=== PATIENT | female | born 1960 | race Caucasian/White ===

== ENCOUNTER 2017-03-27 11:07 | Emergency (ER) | payer MEDICARE ==
[2017-03-27 11:17] VITALS: BP 123/65; PULSE 69; RESP 16; TEMP 97.6
--- NOTE | 2017-03-27 13:03 | XR ---
Right forearm HISTORY: Pain 2 views of the right forearm No comparisons Bone mineralization, joint spaces and alignment are maintained IMPRESSION: Normal right forearm
[2017-03-27] MEDS ORDERED: NAPROXEN 250 MG TAB PO STA (13:49)
--- NOTE | 2017-03-27 13:49 | ED ---
Upper Extremity HPI - General Chief Complaint: Extremity Injury, Upper Stated Complaint: RT HAND AND WRIST PAIN Time Seen by Provider: 03/27/17 11:13 Source: patient Mode of arrival: ambulatory Limitations: no limitations - History of Present Illness MD Complaint: Injury to:: right, forearm, wrist Onset/Timin -: month(s) Other Extremity Injury: Wrist: Right, Forearm: Right Handedness: right Place: home Improves With: immobilization Worsens With: movement of extremity Associated Symptoms: denies other symptoms - Related Data Home Medications Medication Instructions Recorded Confirmed Aspirin 325 mg PO DAILY 02/20/15 03/27/17 Gabapentin [Neurontin] 400 mg PO BID 02/20/15 03/27/17 LORazepam [Ativan] 1 mg PO TID PRN 02/20/15 03/27/17 Omeprazole [PriLOSEC] 20 mg PO DAILY 02/20/15 03/27/17 carBAMazepine [TEGretol] 400 mg PO Q12H 02/20/15 03/27/17 hydrOXYzine HCL [Hydroxyzine HCl] 10 mg PO DAILY 02/20/15 03/27/17 Previous Rx's Medication Instructions Recorded Naproxen Sodium [Naproxen Sodium 500 mg PO DAILY PRN #20 tab 03/27/17 ER] Allergies Allergy/AdvReac Type Severity Reaction Status Date / Time morphine AdvReac Itching Verified 03/27/17 11:32 Review of Systems ROS Statement: Those systems with pertinent positive or pertinent negative responses have been documented in the HPI. ROS Other: All systems not noted in ROS Statement are negative. Constitutional: Denies: fever, weakness Musculoskeletal: Reports: as per HPI, arthralgia, myalgia Neurological: Denies: weakness, numbness, paresthesias Past Medical History Past Medical History: Chest Pain / Angina, GERD/Reflux, Musculoskeletal Disorder Additional Past Medical History / Comment(s): EPILEPSY-LAST SEIZURE APPROX 5 YRS ,CHRONIC PAIN TO ABD RADIATING RT HIP AND LEG. History of Any Multi-Drug Resistant Organisms: None Reported Past Surgical History: Appendectomy, Cholecystectomy, Heart Catheterization, Hernia Repair, Hysterectomy, Tubal Ligation Additional Past Surgical History / Comment(s): RT INGUINAL HERNIA SURGERY W/ MESH, LT INGUINAL HERNIA REPAIR, BLADDER SLING,LT BREAST BX,APRIL KNEE ARTHROSCOPY ,RT ANKLE ARTHROSCOPY, NERVE REMOVED RT FOOT Past Anesthesia/Blood Transfusion Reactions: Previous Problems w/ Anesthesia, Motion Sickness Additional Past Anesthesia/Blood Transfusion Reaction / Comment(s): LOW B/P AND PAIN CONTROL AFTER SURGERY Past Psychological History: Anxiety Smoking Status: Never smoker Past Alcohol Use History: None Reported Past Drug Use History: None Reported - Past Family History Father Family Medical History: Myocardial Infarction ([place]) Additional Family Medical History / Comment(s): AT AGE 75 WITH [place], ABDOMINAL ANEURYSM,EMPHYSEMA, HEART PROBLEMS Mother Additional Family Medical History / Comment(s): WITH GI BLEED AT AGE 73,ALHEIMER'S DISEASE Brother(s) Family Medical History: Renal Disease Additional Family Medical History / Comment(s): MULTIPLE CONGENITAL SPINA BIFIDA General Exam Limitations: no limitations General appearance: alert, in no apparent distress Neck exam: Present: full ROM Extremities exam: Present: normal inspection, full ROM, tenderness, normal capillary refill Neurological exam: Present: alert. Absent: motor sensory deficit Skin exam: Present: warm, dry, intact, normal color. Absent: rash Course Vital Signs 03/27/17 11:14 Temperature 97.6 F Pulse Rate 69 Respiratory 16 Rate Blood Pressure 123/65 O2 Sat by Pulse 95 Oximetry Disposition Clinical Impression: Right wrist sprain Disposition: HOME SELF-CARE Condition: Good Instructions: Wrist Injury (ED) Prescriptions: Naproxen Sodium [Naproxen Sodium ER] 500 mg PO DAILY PRN #20 tab PRN Reason: Pain Referrals: Yasir Hood MD [Primary Care Provider] - 1-2 days
== END 2017-03-27 14:23 | disposition home or self-care (01) ==
LOC: EC 11:07
DX: S63.91XA Sprain of unspecified part of right wrist and hand, initial encounter (principal); K21.9 Gastro-esophageal reflux disease without esophagitis; G40.909 Epilepsy, unspecified, not intractable, without status epilepticus; F41.9 Anxiety disorder, unspecified; Z79.82 Long term (current) use of aspirin; Z79.899 Other long term (current) drug therapy; Z88.5 Allergy status to narcotic agent; X50.1XXA Overexertion from prolonged static or awkward postures, initial encounter
CPT/HCPCS: 99283

== ENCOUNTER 2017-09-28 02:36 | Emergency (ER) | payer MEDICARE ==
[2017-09-28 02:44] VITALS: RESP 20
[2017-09-28] MEDS ORDERED: SODIUM CHLORIDE 0.9% 1,000 ML IV STA (02:52)
[2017-09-28 03:12] LABS: Basophils % (A) 0 %; Eosinophils # (A) 0.2 k/uL (0-0.7); Eosinophils % (A) 3 %; HCT 40.4 % (34.0-46.0); HGB 14.3 gm/dL (11.4-16.0); Lymphocytes # (A) 1.8 k/uL (1.0-4.8); Lymphocytes % (A) 25 %; MCH 32.9 pg (25.0-35.0); MCHC 35.4 g/dL (31.0-37.0); Mean Platelet Volume 6.8; Monocytes # (A) 0.6 k/uL (0-1.0); Monocytes % (A) 8 %; Neutrophils # (A) 4.6 k/uL (1.3-7.7); Neutrophils % (A) 63 %; Platelet Count 352 k/uL (150-450); RBC 4.34 m/uL (3.80-5.40); RDW 12.1 % (11.5-15.5); WBC 7.3 k/uL (3.8-10.6)
[2017-09-28 03:21] LABS: ALT 30 U/L (9-52); AST 19 U/L (14-36); Alkaline Phosphatase 93 U/L (38-126); Anion Gap 12 mmol/L; Blood Urea Nitrogen 11 mg/dL (7-17); Calcium 10.4 mg/dL (8.4-10.2); Carbamazepine (Tegretol) 5.7 ug/mL; Carbon Dioxide 24 mmol/L (22-30); Chloride 107 mmol/L (98-107); Glucose 104 mg/dL (74-99); Phosphorus 4.4 mg/dL (2.5-4.5); Potassium 3.9 mmol/L (3.5-5.1); Sodium 143 mmol/L (137-145); Total Bilirubin 0.4 mg/dL (0.2-1.3); Total Protein 6.7 g/dL (6.3-8.2)
[2017-09-28 03:22] LABS: Creatine Kinase 42 U/L (30-135)
[2017-09-28 03:35] LABS: Creatine Kinase MB 0.2 ng/mL (0.0-2.4); Troponin I <0.012 ng/mL (0.000-0.034)
--- NOTE | 2017-09-28 03:37 | CT ---
EXAM: CT Head Without Intravenous Contrast CLINICAL HISTORY: ITS.REASON CT Reason: weakness TECHNIQUE: Axial computed tomography images of the head/brain without intravenous contrast. CTDI is 57.4 mGy and DLP is 1029.9 mGy-cm. This CT exam was performed using one or more of the following dose reduction techniques: automated exposure control, adjustment of the mA and/or kV according to patient size, and/or use of iterative reconstruction technique. COMPARISON: None. FINDINGS: Brain: Very mild small patchy foci of low attenuation in the supratentorial white matter. No evidence of acute intracranial hemorrhage. No mass effect or herniation. Ventricles: Unremarkable. No ventriculomegaly. Bones/joints: No acute fracture. Soft tissues: Unremarkable. Vasculature: Calcification distal internal carotid arteries. Sinuses: Unremarkable as visualized. Mastoid air cells: Unremarkable as visualized. IMPRESSION: No evidence of acute intracranial hemorrhage. Mild presumed small vessel ischemic disease.
--- NOTE | 2017-09-28 03:38 | XR ---
EXAM: XR Chest, 2 Views CLINICAL HISTORY: ITS.REASON XR Reason: Weakness TECHNIQUE: Frontal and lateral views of the chest. COMPARISON: Chest x-ray dated 02/01/2011. FINDINGS: Lungs: Unremarkable. The lungs are clear. Pleural space: Unremarkable. No pneumothorax. Heart: New mild cardiomegaly. Mediastinum: Unremarkable. Bones/joints: Unremarkable. Vasculature: Mild calcification of the aortic arch. IMPRESSION: No acute findings.
--- NOTE | 2017-09-28 03:56 | ED ---
General Adult HPI - General Chief complaint: Altered Mental Status Stated complaint: altered mental status Time Seen by Provider: 09/28/17 02:39 Source: EMS, RN notes reviewed, old records reviewed Mode of arrival: ambulatory Limitations: no limitations - History of Present Illness Initial comments: This is a 56-year-old female to the ER for evaluation. Patient was essay for evaluation regarding possible seizure versus altered mental state. Patient has history of seizures. History of multiple medical comorbidities. No recent change in medications. Patient takes carbamazepine Tegretol for seizures. Patient has no trauma. Patient was unresponsive upon awaking today, and diffuse for quite a long period of time. Patient himself is complaining of mom abscess to frontal chest, but increased anxiety and stress. - Related Data Home Medications Medication Instructions Recorded Confirmed Aspirin 325 mg PO DAILY 02/20/15 03/27/17 Gabapentin [Neurontin] 400 mg PO BID 02/20/15 09/28/17 LORazepam [Ativan] 1 mg PO TID PRN 02/20/15 09/28/17 Omeprazole [PriLOSEC] 20 mg PO DAILY 02/20/15 09/28/17 carBAMazepine [TEGretol] 400 mg PO Q12H 02/20/15 09/28/17 hydrOXYzine HCL [Hydroxyzine HCl] 10 mg PO DAILY 02/20/15 09/28/17 Previous Rx's Medication Instructions Recorded Cephalexin [Keflex] 500 mg PO Q6HR #40 cap 09/28/17 Allergies Allergy/AdvReac Type Severity Reaction Status Date / Time morphine AdvReac Itching Verified 03/27/17 11:32 Review of Systems ROS Statement: Those systems with pertinent positive or pertinent negative responses have been documented in the HPI. ROS Other: All systems not noted in ROS Statement are negative. Past Medical History Past Medical History: Chest Pain / Angina, GERD/Reflux, Musculoskeletal Disorder Additional Past Medical History / Comment(s): EPILEPSY-LAST SEIZURE APPROX 5 YRS ,CHRONIC PAIN TO ABD RADIATING RT HIP AND LEG. History of Any Multi-Drug Resistant Organisms: None Reported Past Surgical History: Appendectomy, Cholecystectomy, Heart Catheterization, Hernia Repair, Hysterectomy, Tubal Ligation Additional Past Surgical History / Comment(s): RT INGUINAL HERNIA SURGERY W/ MESH, LT INGUINAL HERNIA REPAIR, BLADDER SLING,LT BREAST BX,APRIL KNEE ARTHROSCOPY ,RT ANKLE ARTHROSCOPY, NERVE REMOVED RT FOOT Past Anesthesia/Blood Transfusion Reactions: Previous Problems w/ Anesthesia, Motion Sickness Additional Past Anesthesia/Blood Transfusion Reaction / Comment(s): LOW B/P AND PAIN CONTROL AFTER SURGERY Past Psychological History: Anxiety Smoking Status: Never smoker Past Alcohol Use History: None Reported Past Drug Use History: None Reported - Past Family History Father Family Medical History: Myocardial Infarction ([place]) Additional Family Medical History / Comment(s): AT AGE 75 WITH [place], ABDOMINAL ANEURYSM,EMPHYSEMA, HEART PROBLEMS Mother Additional Family Medical History / Comment(s): WITH GI BLEED AT AGE 73,ALHEIMER'S DISEASE Brother(s) Family Medical History: Renal Disease Additional Family Medical History / Comment(s): MULTIPLE CONGENITAL SPINA BIFIDA General Exam Limitations: no limitations General appearance: alert, in no apparent distress Head exam: Present: atraumatic, normocephalic, normal inspection Eye exam: Present: normal appearance, PERRL, EOMI. Absent: scleral icterus, conjunctival injection, periorbital swelling ENT exam: Present: normal exam, mucous membranes moist Neck exam: Present: normal inspection. Absent: tenderness, meningismus, lymphadenopathy Respiratory exam: Present: normal lung sounds bilaterally. Absent: respiratory distress, wheezes, rales, rhonchi, stridor Cardiovascular Exam: Present: regular rate, normal rhythm, normal heart sounds. Absent: systolic murmur, diastolic murmur, rubs, gallop, clicks GI/Abdominal exam: Present: soft, normal bowel sounds. Absent: distended, tenderness, guarding, rebound, rigid Extremities exam: Present: normal inspection, full ROM, normal capillary refill. Absent: tenderness, pedal edema, joint swelling, calf tenderness Back exam: Present: normal inspection Neurological exam: Present: alert, oriented X3, CN II-XII intact Psychiatric exam: Present: normal affect, normal mood Skin exam: Present: warm, dry, intact, normal color. Absent: rash Course Vital Signs 09/28/17 09/28/17 02:37 04:06 Temperature 97.9 F 97.8 F Pulse Rate 79 83 Respiratory 20 20 Rate Blood Pressure 132/74 137/78 O2 Sat by Pulse 100 97 Oximetry - Reevaluation(s) Reevaluation #1: 09/28/17 03:56 Patient is without seizure-like activity Medical Decision Making - Medical Decision Making 56 female DF for anxiety versus recurrent seizure activity. Evaluation is negative, patient feels better will like to be discharged home - Lab Data Result diagrams: 09/28/17 02:41 09/28/17 02:41 Lab Results 09/28/1718 18 Range/Units 02:41 02:41 02:41 WBC 7.3 (3.8-10.6) k/uL RBC 4.34 (3.80-5.40) m/uL Hgb 14.3 (11.4-16.0) gm/dL Hct 40.4 (34.0-46.0) % MCV 93.0 (80.0-100.0) fL MCH 32.9 (25.0-35.0) pg MCHC 35.4 (31.0-37.0) g/dL RDW 12.1 (11.5-15.5) % Plt Count 352 (150-450) k/uL Neutrophils % 63 % Lymphocytes % 25 % Monocytes % 8 % Eosinophils % 3 % Basophils % 0 % Neutrophils # 4.6 (1.3-7.7) k/uL Lymphocytes # 1.8 (1.0-4.8) k/uL Monocytes # 0.6 (0-1.0) k/uL Eosinophils # 0.2 (0-0.7) k/uL Basophils # 0.0 (0-0.2) k/uL Sodium 143 (137-145) mmol/L Potassium 3.9 (3.5-5.1) mmol/L Chloride 107 (98-107) mmol/L Carbon Dioxide 24 (22-30) mmol/L Anion Gap 12 mmol/L BUN 11 (7-17) mg/dL Creatinine 0.70 (0.52-1.04) mg/dL Est GFR (MDRD) Af Amer >60 (>60 ml/min/1.73 sqM) Est GFR (MDRD) Non-Af >60 (>60 ml/min/1.73 sqM) Glucose 104 H (74-99) mg/dL Calcium 10.4 H (8.4-10.2) mg/dL Phosphorus 4.4 (2.5-4.5) mg/dL Magnesium 2.0 (1.6-2.3) mg/dL Total Bilirubin 0.4 (0.2-1.3) mg/dL AST 19 (14-36) U/L ALT 30 (9-52) U/L Alkaline Phosphatase 93 (38-126) U/L Total Creatine Kinase 42 (30-135) U/L CK-MB (CK-2) 0.2 (0.0-2.4) ng/mL CK-MB (CK-2) Rel Index 0.5 Troponin I <0.012 (0.000-0.034) ng/mL Total Protein 6.7 (6.3-8.2) g/dL Albumin 4.0 (3.5-5.0) g/dL Urine Color Urine Appearance (Clear) Urine pH (5.0-8.0) Ur Specific Toney (1.001-1.035) Urine Protein (Negative) Urine Glucose (UA) (Negative) Urine Ketones (Negative) Urine Blood (Negative) Urine Nitrite (Negative) Urine Bilirubin (Negative) Urine Urobilinogen (<2.0) mg/dL Ur Leukocyte Esterase (Negative) Urine RBC (0-5) /hpf Urine WBC (0-5) /hpf Urine Mucus (None) /hpf Carbamazepine 5.7 ug/mL 09/28/17 Range/Units 03:57 WBC (3.8-10.6) k/uL RBC (3.80-5.40) m/uL Hgb (11.4-16.0) gm/dL Hct (34.0-46.0) % MCV (80.0-100.0) fL MCH (25.0-35.0) pg MCHC (31.0-37.0) g/dL RDW (11.5-15.5) % Plt Count (150-450) k/uL Neutrophils % % Lymphocytes % % Monocytes % % Eosinophils % % Basophils % % Neutrophils # (1.3-7.7) k/uL Lymphocytes # (1.0-4.8) k/uL Monocytes # (0-1.0) k/uL Eosinophils # (0-0.7) k/uL Basophils # (0-0.2) k/uL Sodium (137-145) mmol/L Potassium (3.5-5.1) mmol/L Chloride (98-107) mmol/L Carbon Dioxide (22-30) mmol/L Anion Gap mmol/L BUN (7-17) mg/dL Creatinine (0.52-1.04) mg/dL Est GFR (MDRD) Af Amer (>60 ml/min/1.73 sqM) Est GFR (MDRD) Non-Af (>60 ml/min/1.73 sqM) Glucose (74-99) mg/dL Calcium (8.4-10.2) mg/dL Phosphorus (2.5-4.5) mg/dL Magnesium (1.6-2.3) mg/dL Total Bilirubin (0.2-1.3) mg/dL AST (14-36) U/L ALT (9-52) U/L Alkaline Phosphatase (38-126) U/L Total Creatine Kinase (30-135) U/L CK-MB (CK-2) (0.0-2.4) ng/mL CK-MB (CK-2) Rel Index Troponin I (0.000-0.034) ng/mL Total Protein (6.3-8.2) g/dL Albumin (3.5-5.0) g/dL Urine Color Light Yellow Urine Appearance Clear (Clear) Urine pH 7.0 (5.0-8.0) Ur Specific Toney 1.005 (1.001-1.035) Urine Protein Negative (Negative) Urine Glucose (UA) Negative (Negative) Urine Ketones Negative (Negative) Urine Blood Negative (Negative) Urine Nitrite Negative (Negative) Urine Bilirubin Negative (Negative) Urine Urobilinogen <2.0 (<2.0) mg/dL Ur Leukocyte Esterase Small H (Negative) Urine RBC 1 (0-5) /hpf Urine WBC 2 (0-5) /hpf Urine Mucus Rare H (None) /hpf Carbamazepine ug/mL - Radiology Data Radiology results: report reviewed (CT brain and chest x-ray are negative for acute disease), image reviewed Disposition Clinical Impression: Altered mental status, Seizure, Anxiety, Cellulitis of chest wall Disposition: HOME SELF-CARE Condition: Good Instructions: Cellulitis (ED), Epilepsy (ED), Anxiety (ED) Prescriptions: Cephalexin [Keflex] 500 mg PO Q6HR #40 cap Referrals: Yasir Hood MD [Primary Care Provider] - 1-2 days
[2017-09-28 04:07] VITALS: BP 137/78; PULSE 83; TEMP 97.8
[2017-09-28 04:24] LABS: Appearance,Urine Clear (Clear); Bilirubin,Urine Negative (Negative); Blood,Urine Negative (Negative); Color,Urine Light Yellow; Glucose,Urine (UA) Negative (Negative); Ketones,Urine Negative (Negative); Leukocyte Esterase,Urine Small (Negative); Mucus,Urine Rare /hpf; Nitrite,Urine Negative (Negative); Protein,Urine Negative (Negative); RBC,Urine 1 /hpf (0-5); Specific Gravity,Urine 1.005 (1.001-1.035); Urobilinogen,Urine <2.0 mg/dL (<2.0); WBC,Urine 2 /hpf (0-5)
== END 2017-09-28 04:20 | disposition home or self-care (01) ==
LOC: EC 02:36
DX: R41.82 Altered mental status, unspecified (principal); G40.909 Epilepsy, unspecified, not intractable, without status epilepticus; L03.313 Cellulitis of chest wall; F41.9 Anxiety disorder, unspecified; K21.9 Gastro-esophageal reflux disease without esophagitis; Z88.5 Allergy status to narcotic agent; Z79.82 Long term (current) use of aspirin; Z79.899 Other long term (current) drug therapy
CPT/HCPCS: 36415; 70450; 71046; 80053; 80156; 81001; 82550; 82553; 83735; 84100; 84484; 85025; 93005; 96360; 99285

== ENCOUNTER 2017-12-20 15:54 | Emergency (ER) | payer MEDICARE ==
--- NOTE | 2017-12-20 16:33 | ED ---
General Adult HPI - General Chief complaint: Skin/Abscess/Foreign Body Stated complaint: FB in throat Time Seen by Provider: 12/20/17 16:01 Source: patient Mode of arrival: ambulatory Limitations: no limitations - History of Present Illness Initial comments: Patient is a 56-year-old female presents with a chief complaint of a foreign body sensation in her throat. The patient states that she ate fish around 10: 00 and physical fishbone stuck in her throat. Patient states that it feels it stuck on the right lower side of her oropharynx. The patient was directed by primary care doctor to come to the emergency department. Patient states that she is not having any difficulty breathing though she states that swallowing feels funny. - Related Data Home Medications Medication Instructions Recorded Confirmed Aspirin 325 mg PO DAILY 02/20/15 03/27/17 Gabapentin [Neurontin] 400 mg PO BID 02/20/15 09/28/17 LORazepam [Ativan] 1 mg PO TID PRN 02/20/15 09/28/17 Omeprazole [PriLOSEC] 20 mg PO DAILY 02/20/15 09/28/17 carBAMazepine [TEGretol] 400 mg PO Q12H 02/20/15 09/28/17 hydrOXYzine HCL [Hydroxyzine HCl] 10 mg PO DAILY 02/20/15 09/28/17 Previous Rx's Medication Instructions Recorded Cephalexin [Keflex] 500 mg PO Q6HR #40 cap 09/28/17 Allergies Allergy/AdvReac Type Severity Reaction Status Date / Time morphine AdvReac Itching Verified 12/20/17 15:59 Review of Systems ROS Statement: Those systems with pertinent positive or pertinent negative responses have been documented in the HPI. ROS Other: All systems not noted in ROS Statement are negative. ENT: Reports: throat pain, other (foreign body sensation) Past Medical History Past Medical History: Chest Pain / Angina, GERD/Reflux, Musculoskeletal Disorder Additional Past Medical History / Comment(s): EPILEPSY-LAST SEIZURE APPROX 5 YRS ,CHRONIC PAIN TO ABD RADIATING RT HIP AND LEG. History of Any Multi-Drug Resistant Organisms: None Reported Past Surgical History: Appendectomy, Cholecystectomy, Heart Catheterization, Hernia Repair, Hysterectomy, Tubal Ligation Additional Past Surgical History / Comment(s): RT INGUINAL HERNIA SURGERY W/ MESH, LT INGUINAL HERNIA REPAIR, BLADDER SLING,LT BREAST BX,APRIL KNEE ARTHROSCOPY ,RT ANKLE ARTHROSCOPY, NERVE REMOVED RT FOOT Past Anesthesia/Blood Transfusion Reactions: Previous Problems w/ Anesthesia, Motion Sickness Additional Past Anesthesia/Blood Transfusion Reaction / Comment(s): LOW B/P AND PAIN CONTROL AFTER SURGERY Past Psychological History: Anxiety Smoking Status: Never smoker Past Alcohol Use History: None Reported Past Drug Use History: None Reported - Past Family History Father Family Medical History: Myocardial Infarction ([place]) Additional Family Medical History / Comment(s): AT AGE 75 WITH [place], ABDOMINAL ANEURYSM,EMPHYSEMA, HEART PROBLEMS Mother Additional Family Medical History / Comment(s): WITH GI BLEED AT AGE 73,ALHEIMER'S DISEASE Brother(s) Family Medical History: Renal Disease Additional Family Medical History / Comment(s): MULTIPLE CONGENITAL SPINA BIFIDA General Exam Limitations: no limitations General appearance: alert, in no apparent distress Head exam: Present: atraumatic, normocephalic Eye exam: Present: normal appearance ENT exam: Present: mucous membranes moist, other (patient states she feels like a fish bone is stuck in the lower right side of her oropharynx, no foreign body identified. ) Neck exam: Present: tenderness (anterior right lower tenderness. ) Respiratory exam: Present: normal lung sounds bilaterally. Absent: respiratory distress, wheezes, stridor Cardiovascular Exam: Present: regular rate, normal rhythm GI/Abdominal exam: Present: soft. Absent: distended, tenderness Rectal exam: Present: deferred Extremities exam: Present: normal inspection Back exam: Present: normal inspection Neurological exam: Present: alert, oriented X3 Psychiatric exam: Present: normal affect, normal mood Skin exam: Present: warm, dry, intact Course Vital Signs 12/20/17 15:58 Temperature 97.9 F Pulse Rate 93 Respiratory 16 Rate Blood Pressure 133/83 O2 Sat by Pulse 99 Oximetry Medical Decision Making - Medical Decision Making Patient presents with a CC of foreign body sensation in her throat. initial VS stable, patient in no distress though she appears mildly anxious. no fish bone or other foreign body identified on exam. Case discussed with Dr. Lockhart , ENT, who recommends x-ray of the neck. 5:11 PM X-ray is unremarkable, there is no identified radiopaque foreign body. Patient was reexamined, again there is no visualized foreign body with direct visualization. At this time, patient is able to tolerate by mouth intake, and has no airway compromise. Patient is stable for discharge home. Patient instructed to eat a soft diet, follow up with ENT, and return to the emergency department if symptoms worsen or change. Disposition Clinical Impression: Globus sensation, Foreign body sensation in throat Disposition: HOME SELF-CARE Condition: Good Instructions: Foreign Body in Pharynx (ED) Is patient prescribed a controlled substance at d/c from ED?: No Referrals: Yasir Hood MD [Primary Care Provider] - 1-2 days Etienne Lockhart MD [STAFF PHYSICIAN] - 1-2 days
--- NOTE | 2017-12-20 16:58 | XR ---
EXAMINATION TYPE: XR soft tissue neck DATE OF EXAM: 12/20/2017 COMPARISON: NONE HISTORY: 56-year-old female with pain, possible fish bone foreign body in throat TECHNIQUE: 2 views FINDINGS: No prevertebral soft tissue swelling. Normal epiglottis and patent airway. No narrowing of the subglo ttic airway. No definite radiopaque foreign body is identified. There are calcifications of the hyoid and thyroid/cricoid cartilage noted. Moderate spondylotic change at mid to lower cervical spine. IMPRESSION: Cartilaginous calcifications. No definite radiopaque foreign body is identified. Patent airway.
[2017-12-20 17:26] VITALS: BP 133/76; PULSE 86; RESP 18; TEMP 97.7
== END 2017-12-20 17:25 | disposition home or self-care (01) ==
LOC: EC 15:54
DX: R09.89 Other specified symptoms and signs involving the circulatory and respiratory systems (principal); F45.8 Other somatoform disorders; F41.9 Anxiety disorder, unspecified; K21.9 Gastro-esophageal reflux disease without esophagitis; G40.909 Epilepsy, unspecified, not intractable, without status epilepticus; Z79.82 Long term (current) use of aspirin; Z79.899 Other long term (current) drug therapy; Z88.5 Allergy status to narcotic agent
CPT/HCPCS: 70360; 99283

== ENCOUNTER 2018-03-23 11:45 | Day surgery (SDC) | payer MEDICARE ==
[2018-03-23] MEDS ORDERED: LACTATED RINGERS 1,000 ML IV ONE ×2 (12:18)
[2018-03-23] MEDS ORDERED: LIDOCAINE 1% 20 ML VIAL (10MG/ML) FOR IV START INTRADERMA ONE (12:19)
[2018-03-23] MEDS ORDERED: LIDOCAINE 1% INJ 10MG/ML (20 ML MDV) ONE (12:24)
[2018-03-23] MEDS ORDERED: PROPOFOL 10 MG/ML 20 ML VIAL IV ONE (12:24)
[2018-03-23 12:26] VITALS: RESP 16; TEMP 97.6
--- NOTE | 2018-03-23 12:35 | P.PCN ---
Date of Procedure: 03/23/18 Procedure(s) Performed: BRIEF HISTORY: Patient is a 57-year-old, pleasant, male, scheduled for an upper endoscopy as a part of evaluation of dysphagia to solids and liquids for the last few years duration. She had a similar episode in 2007 and underwent an upper endoscopy with dilation and did well. She is hence scheduled for an upper endoscopy with possible dilation today. She also has long-standing history of GERD. PROCEDURE PERFORMED: Esophagogastroduodenoscopy with biopsy and balloon dilation. PREOPERATIVE DIAGNOSIS: Dysphagia to solids and liquids of 4 years duration/ lungs and history of GERD. IV sedation per anesthesia. PROCEDURE: After informed consent was obtained, the patient was brought into the endoscopy unit. IV sedation was administered by Anesthesia under continuous monitoring. Initially the Olympus GIF-140 video endoscope was inserted into the mouth. Esophagus intubated without any difficulty. It was gradually advanced into the stomach and duodenum and carefully examined. The bulb and the second part of the duodenum appeared normal. The scope at this time was withdrawn to the stomach, adequately insufflated with air, and upon careful examination, mucosa of the antrum, body, cardia and the fundus appeared normal. The scope was then withdrawn into the esophagus. The GE junction was located at 39 cm from the incisors. Small hiatal hernia noted. There was a distal esophageal Schatzki's ring identified which was widely patent. It was dilated using 18-20 mm TTS balloon in a sequential fashion for total of 60 seconds. The esophagus appeared normal. There were no erosions or ulcerations seen and the patient tolerated the procedure well. IMPRESSION: 1. Distal esophageal widely patent Schatzki's ring status post balloon dilation with a new 20 mm TTS balloon as described above. 2. Hiatal hernia.. RECOMMENDATIONS: The findings of this examination were discussed with the patient as well as a family. She was advised to follow with the biopsy results.. She'll be seen in office in 6 weeks.
[2018-03-23 13:00] VITALS: BP 121/76; PULSE 78
--- NOTE | 2018-03-27 18:25 | CDI ---
Outpatient Documentation Clarification Form Date: 03/27/18 CDS/Animal Assistant Name: Cherelle Erwin Phone: If any questions, call Amber Hoffman Radio Broadcaster at [phone] Patient Name: FREDERICK ANGEL Admit Date: 03/23/18 Discharge Date: 03/23/18 ATTENTION: The [facility] Coding Staff appreciate your assistance in clarifying documentation. Please respond to the clarification below the line at the bottom and electronically sign. The [facility] Coding staff will review the response and follow-up if needed. Please note: Queries are made part of the Legal Health Record. If you have any questions, please contact the Radio Broadcaster. Dear Dr. Burnham The title of the procedure and the path report both indicate that a biopsy was performed, but the procedure description makes no mention of a biopsy. Please clarify, and update procedure description, if needed, to reflect the biopsy. Thank you for your kind consideration. biopsisa were done from the esophagus. Dr.Tumma QUILES
== END 2018-03-23 13:34 | disposition home or self-care (01) ==
LOC: ORWHC2ENDO 11:45
PROVIDERS: ATTEND Internal Medicine Gastroenterology
DX: K22.2 Esophageal obstruction (principal); K44.9 Diaphragmatic hernia without obstruction or gangrene; K21.9 Gastro-esophageal reflux disease without esophagitis; R56.9 Unspecified convulsions; Z79.82 Long term (current) use of aspirin; Z79.899 Other long term (current) drug therapy; Z88.5 Allergy status to narcotic agent
CPT/HCPCS: 88305; 43239; 43249; J2001; J2704

== ENCOUNTER 2018-04-12 13:07 | Emergency (ER) | payer MEDICARE ==
[2018-04-12 14:06] LABS: Basophils % (A) 0 %; Eosinophils # (A) 0.2 k/uL (0-0.7); Eosinophils % (A) 3 %; HCT 41.2 % (34.0-46.0); HGB 14.7 gm/dL (11.4-16.0); Lymphocytes # (A) 1.3 k/uL (1.0-4.8); Lymphocytes % (A) 22 %; MCH 32.8 pg (25.0-35.0); MCHC 35.6 g/dL (31.0-37.0); MCV 92.1 fL (80.0-100.0); Mean Platelet Volume 6.7; Monocytes # (A) 0.4 k/uL (0-1.0); Monocytes % (A) 7 %; Neutrophils # (A) 3.9 k/uL (1.3-7.7); Neutrophils % (A) 66 %; Platelet Count 370 k/uL (150-450); RBC 4.48 m/uL (3.80-5.40); RDW 12.1 % (11.5-15.5); WBC 5.9 k/uL (3.8-10.6)
[2018-04-12 14:16] LABS: Partial Thromboplastin Time 25.1 sec (22.0-30.0); Prothrombin Time 9.5 sec (9.0-12.0)
[2018-04-12 14:17] LABS: ALT 36 U/L (9-52); AST 28 U/L (14-36); Albumin 4.4 g/dL (3.5-5.0); Alkaline Phosphatase 97 U/L (38-126); Anion Gap 12 mmol/L; Blood Urea Nitrogen 9 mg/dL (7-17); Carbon Dioxide 20 mmol/L (22-30); Chloride 109 mmol/L (98-107); Glucose 104 mg/dL (74-99); Lipase 69 U/L (23-300); Magnesium 2.1 mg/dL (1.6-2.3); Potassium 4.2 mmol/L (3.5-5.1); Sodium 141 mmol/L (137-145); Total Bilirubin 0.5 mg/dL (0.2-1.3); Total Protein 7.6 g/dL (6.3-8.2)
--- NOTE | 2018-04-12 14:20 | ED ---
General Adult HPI - General Chief complaint: Shortness of Breath Stated complaint: chest pain, SOB Source: patient Mode of arrival: wheelchair Limitations: no limitations - History of Present Illness Initial comments: Dictation was produced using [employer] dictation software. please excuse any grammatical, word or spelling errors. Chief Complaint: 57-year-old female past medical history of multiple abdominal surgeries presents with. Buccal abdominal pain. History of Present Illness: Is 57-year-old female presents with chief complaint of periumbilical abdominal pain. Patient states the symptoms have been ongoing for 3 days. She tried taking a stool softener however her symptoms did not improve. Denies any constitutional symptoms. Patient states she also has associated chest pain and left lower back pain. Patient has had multiple abdominal surgeries in the past including bowel resections, appendectomy, cholecystectomy and bilateral tubal ligation. She also had right inguinal hernia repair. Patient states that her symptoms are localized to her periumbilical area with radiation down the bilateral lower quadrants. The ROS documented in this emergency department record has been reviewed and confirmed by me. Those systems with pertinent positive or negative responses have been documented in the HPI. All other systems are other negative and/or noncontributory. - Related Data Home Medications Medication Instructions Recorded Confirmed Gabapentin [Neurontin] 400 mg PO BID 02/20/15 04/12/18 LORazepam [Ativan] 1 mg PO TID PRN 02/20/15 04/12/18 carBAMazepine [TEGretol] 400 mg PO Q12H 02/20/15 04/12/18 Aspirin EC [Ecotrin Low Dose] 162 mg PO DAILY 12/20/17 04/12/18 Omeprazole 20 mg PO DAILY 04/12/18 04/12/18 Previous Rx's Medication Instructions Recorded HYDROcodone/APAP 5-325MG [Yermo 1 tab PO Q6HR PRN 3 Days #6 tab 04/12/18 5-325] Allergies Allergy/AdvReac Type Severity Reaction Status Date / Time morphine AdvReac Itching Verified 04/12/18 13:54 Review of Systems ROS Statement: Those systems with pertinent positive or pertinent negative responses have been documented in the HPI. ROS Other: All systems not noted in ROS Statement are negative. Past Medical History Past Medical History: Chest Pain / Angina, GERD/Reflux, Musculoskeletal Disorder Additional Past Medical History / Comment(s): EPILEPSY-LAST SEIZURE APPROX 8 YRS ,CHRONIC PAIN TO ABD RADIATING RT HIP AND LEG.-COMES AND G0ES. HAS HAD TROUBLE SWALLOWING SINCE THE LAST 6 MONTHS History of Any Multi-Drug Resistant Organisms: None Reported Past Surgical History: Appendectomy, Cholecystectomy, Heart Catheterization, Hernia Repair, Hysterectomy, Tubal Ligation Additional Past Surgical History / Comment(s): RT INGUINAL HERNIA SURGERY W/ MESH, LT INGUINAL HERNIA REPAIR, BLADDER SLING,LT BREAST BX,APRIL KNEE ARTHROSCOPY ,RT ANKLE ARTHROSCOPY, NERVE REMOVED RT FOOT, esophageal strictures Past Anesthesia/Blood Transfusion Reactions: Previous Problems w/ Anesthesia, Motion Sickness Additional Past Anesthesia/Blood Transfusion Reaction / Comment(s): LOW B/P AND PAIN CONTROL AFTER SURGERY Past Psychological History: Anxiety, Depression Smoking Status: Never smoker Past Alcohol Use History: None Reported Past Drug Use History: None Reported - Past Family History Father Family Medical History: Myocardial Infarction ([place]) Additional Family Medical History / Comment(s): AT AGE 75 WITH [place], ABDOMINAL ANEURYSM,EMPHYSEMA, HEART PROBLEMS Mother Additional Family Medical History / Comment(s): WITH GI BLEED AT AGE 73,ALHEIMER'S DISEASE Brother(s) Family Medical History: Renal Disease Additional Family Medical History / Comment(s): MULTIPLE CONGENITAL SPINA BIFIDA General Exam - General Exam Comments Initial Comments: PHYSICAL EXAM: General Impression: Alert and oriented x3, not in acute distress HEENT: Normocephalic atraumatic, extra-ocular movements intact, pupils equal and reactive to light bilaterally, mucous membranes moist. Cardiovascular: Heart regular rate and rhythm, S1&S2 audible, no murmurs, rubs or gallops Chest: Lungs clear to auscultation bilaterally, no rhonchi, no wheeze, no rales Abdomen: Mild tenderness to the entire abdomen. Musculoskeletal: Pulses present and equal in all extremities, no peripheral edema Motor: Power 5/5 bilaterally, no focal deficits noted Neurological: CN II-XII grossly intact, no focal motor or sensory deficits noted Skin: Intact with no visualized rashes Psych: Normal affect and mood Limitations: no limitations Course Vital Signs 04/12/18 04/12/18 04/12/18 13:23 13:58 15:27 Temperature 98.2 F 97.8 F Pulse Rate 85 87 81 Respiratory 20 20 19 Rate Blood Pressure 122/73 145/74 128/80 O2 Sat by Pulse 97 96 93 L Oximetry Medical Decision Making - Medical Decision Making ED course: 57-year-old female presents with chief complaint vital signs upon arrival are within normal limits.Laboratory evaluation obtained. CBC unremarkable. Coag panel is negative. Metabolic panel is negative. Belly labs are negative. Cardiac enzymes are negative. Chest x-ray shows acute processes. Abdominal and pelvis CT shows no acute processes. Discussed with patient that there is no serious medical issues going on at this time. Patient has established care with GI doctor and primary care physician. Patient states she's been very stressed out recently. Episodic. At this point there is no clear indication for inpatient admission or other emergent intervention. Discussed with patient that is reasonable she can follow up with primary care physician and GI doctor. Patient given 6 tab prescription for severe abdominal pain. Patient is understandable agreeable to disposition. Patient's chest pain is atypical and there is no need for serial troponins. EKG Interpretation: A 12 lead EKG was obtained. It was interpreted by myself and attending physician. There is a P wave before every QRS complex. Rate is 86. Rhythm is normal sinus rhythm, OR interval 160, Q baptism 84, QTC 488. QT is not prolonged. No ST segment depression or elevation. . Overall, this EKG is unremarkable - Lab Data Result diagrams: 04/12/18 13:47 04/12/18 13:47 Lab Results 04/12/18 04/12/18 04/12/18 Range/Units 13:47 13:47 13:47 WBC 5.9 (3.8-10.6) k/uL RBC 4.48 (3.80-5.40) m/uL Hgb 14.7 (11.4-16.0) gm/dL Hct 41.2 (34.0-46.0) % MCV 92.1 (80.0-100.0) fL MCH 32.8 (25.0-35.0) pg MCHC 35.6 (31.0-37.0) g/dL RDW 12.1 (11.5-15.5) % Plt Count 370 (150-450) k/uL Neutrophils % 66 % Lymphocytes % 22 % Monocytes % 7 % Eosinophils % 3 % Basophils % 0 % Neutrophils # 3.9 (1.3-7.7) k/uL Lymphocytes # 1.3 (1.0-4.8) k/uL Monocytes # 0.4 (0-1.0) k/uL Eosinophils # 0.2 (0-0.7) k/uL Basophils # 0.0 (0-0.2) k/uL PT (9.0-12.0) sec INR (<1.2) APTT (22.0-30.0) sec Sodium 141 (137-145) mmol/L Potassium 4.2 (3.5-5.1) mmol/L Chloride 109 H (98-107) mmol/L Carbon Dioxide 20 L (22-30) mmol/L Anion Gap 12 mmol/L BUN 9 (7-17) mg/dL Creatinine 0.59 (0.52-1.04) mg/dL Est GFR (CKD-EPI)AfAm >90 (>60 ml/min/1.73 sqM) Est GFR (CKD-EPI)NonAf >90 (>60 ml/min/1.73 sqM) Glucose 104 H (74-99) mg/dL Calcium 10.0 (8.4-10.2) mg/dL Magnesium 2.1 (1.6-2.3) mg/dL Total Bilirubin 0.5 (0.2-1.3) mg/dL AST 28 (14-36) U/L ALT 36 (9-52) U/L Alkaline Phosphatase 97 (38-126) U/L Total Creatine Kinase 31 (30-135) U/L CK-MB (CK-2) <0.2 (0.0-2.4) ng/mL CK-MB (CK-2) Rel Index Troponin I <0.012 (0.000-0.034) ng/mL NT-Pro-B Natriuret Pep pg/mL Total Protein 7.6 (6.3-8.2) g/dL Albumin 4.4 (3.5-5.0) g/dL Lipase 69 (23-300) U/L 04/12/18 04/12/18 Range/Units 13:47 13:47 WBC (3.8-10.6) k/uL RBC (3.80-5.40) m/uL Hgb (11.4-16.0) gm/dL Hct (34.0-46.0) % MCV (80.0-100.0) fL MCH (25.0-35.0) pg MCHC (31.0-37.0) g/dL RDW (11.5-15.5) % Plt Count (150-450) k/uL Neutrophils % % Lymphocytes % % Monocytes % % Eosinophils % % Basophils % % Neutrophils # (1.3-7.7) k/uL Lymphocytes # (1.0-4.8) k/uL Monocytes # (0-1.0) k/uL Eosinophils # (0-0.7) k/uL Basophils # (0-0.2) k/uL PT 9.5 (9.0-12.0) sec INR 1.0 (<1.2) APTT 25.1 (22.0-30.0) sec Sodium (137-145) mmol/L Potassium (3.5-5.1) mmol/L Chloride (98-107) mmol/L Carbon Dioxide (22-30) mmol/L Anion Gap mmol/L BUN (7-17) mg/dL Creatinine (0.52-1.04) mg/dL Est GFR (CKD-EPI)AfAm (>60 ml/min/1.73 sqM) Est GFR (CKD-EPI)NonAf (>60 ml/min/1.73 sqM) Glucose (74-99) mg/dL Calcium (8.4-10.2) mg/dL Magnesium (1.6-2.3) mg/dL Total Bilirubin (0.2-1.3) mg/dL AST (14-36) U/L ALT (9-52) U/L Alkaline Phosphatase (38-126) U/L Total Creatine Kinase (30-135) U/L CK-MB (CK-2) (0.0-2.4) ng/mL CK-MB (CK-2) Rel Index Troponin I (0.000-0.034) ng/mL NT-Pro-B Natriuret Pep 32 pg/mL Total Protein (6.3-8.2) g/dL Albumin (3.5-5.0) g/dL Lipase (23-300) U/L Disposition Clinical Impression: Abdominal pain Disposition: HOME SELF-CARE Instructions: Abdominal Pain (ED) Prescriptions: HYDROcodone/APAP 5-325MG [Yermo 5-325] 1 tab PO Q6HR PRN 3 Days #6 tab PRN Reason: Pain Is patient prescribed a controlled substance at d/c from ED?: Yes If prescribed controlled substance>3 days was MAPS reviewed?: Prescribed <3 Days Referrals: Yasir Hood MD [Primary Care Provider] - 1-2 days Time of Disposition: 15:34
[2018-04-12 14:22] LABS: Creatine Kinase 31 U/L (30-135)
[2018-04-12 14:35] LABS: Creatine Kinase MB <0.2 ng/mL (0.0-2.4); Troponin I <0.012 ng/mL (0.000-0.034)
--- NOTE | 2018-04-12 14:57 | XR ---
EXAMINATION TYPE: XR chest 2V DATE OF EXAM: 04/12/2018 COMPARISON: 09/28/2017 HISTORY: 57 year-old female shortness of breath, chest pain, difficulty breathing TECHNIQUE: AP and lateral views FINDINGS: Heart upper limits of normal in size. Stable hazy peripheral left basilar density suggestive of epica rdial fat pad. Mild diffuse interstitial prominence is unchanged. No consolidation or pleural effusio n otherwise seen. IMPRESSION: Chronic changes without acute cardiopulmonary process.
--- NOTE | 2018-04-12 15:07 | CT ---
EXAMINATION TYPE: CT abdomen pelvis w con DATE OF EXAM: 04/12/2018 COMPARISON: 02/01/2011 INDICATION: Mid abdominal pain, nausea, vomiting and diarrhea x3-4 days. DLP: 1559 mGycm, Automated exposure control for dose reduction was used. CONTRAST: 100ml mL of Isovue M300. Study performed without Oral Contrast TECHNIQUE: Axial images were obtained from above the diaphragm to the pubic rami in the axial plane a t 5 mm thick sections. Reconstructed images are reviewed on the computer in the coronal plane. FINDINGS: Limited CT sections are obtained the lung bases. The lung bases are clear. CT ABDOMEN: Liver: Normal Spleen: Normal Pancreas: Normal Adrenal glands: The adrenal glands are normal. Gallbladder: Surgically absent Kidneys: No masses are evident. No hydronephrosis is present. No cysts are present. Delayed images were obtained through the kidneys, which remain unremarkable. Aorta: Normal Inferior vena cava: Normal. CT PELVIS: Loops of bowel within the abdomen and pelvis are normal. Postsurgical changes are in the right lo wer quadrant bowel loops. No suspicious dilated loops of bowel are evident. Appendix: Normal as visualized. Urinary bladder: Normal. Genitourinary structures: Uterus not identified. Adnexal regions are clear. No free fluid is within t he pelvis. Osseous structures: No suspicious lytic or sclerotic lesions. IMPRESSIONS: 1. No suspicious acute changes.
[2018-04-12 15:28] VITALS: BP 128/80; PULSE 81; RESP 19; TEMP 97.8
== END 2018-04-12 15:44 | disposition home or self-care (01) ==
LOC: EC 13:07
DX: R10.33 Periumbilical pain (principal); R06.02 Shortness of breath; R07.89 Other chest pain; M54.5 Low back pain; F41.9 Anxiety disorder, unspecified; G40.909 Epilepsy, unspecified, not intractable, without status epilepticus; K21.9 Gastro-esophageal reflux disease without esophagitis; Z90.49 Acquired absence of other specified parts of digestive tract; Z90.89 Acquired absence of other organs; Z98.51 Tubal ligation status; Z95.5 Presence of coronary angioplasty implant and graft; Z79.82 Long term (current) use of aspirin; Z79.899 Other long term (current) drug therapy; Z88.5 Allergy status to narcotic agent
CPT/HCPCS: 36415; 71046; 74177; 80053; 82550; 82553; 83690; 83735; 83880; 84484; 85025; 85610; 85730; 99285

== ENCOUNTER 2018-07-08 00:36 | Observation (INO) | payer MEDICARE ==
[2018-07-08] MEDS ORDERED: SODIUM CHLORIDE 0.9% 1,000 ML IV STA (02:20)
[2018-07-08] MEDS ORDERED: KETOROLAC 30 MG/ML 1 ML VIAL IVP STA (03:24)
[2018-07-08 03:25] LABS: Basophils # (A) 0.1 k/uL (0-0.2); Basophils % (A) 1 %; Eosinophils # (A) 0.2 k/uL (0-0.7); Eosinophils % (A) 3 %; HCT 41.8 % (34.0-46.0); HGB 14.5 gm/dL (11.4-16.0); Lymphocytes # (A) 1.8 k/uL (1.0-4.8); Lymphocytes % (A) 28 %; MCH 32.4 pg (25.0-35.0); MCHC 34.7 g/dL (31.0-37.0); MCV 93.3 fL (80.0-100.0); Mean Platelet Volume 6.6; Monocytes # (A) 0.4 k/uL (0-1.0); Monocytes % (A) 6 %; Neutrophils # (A) 3.8 k/uL (1.3-7.7); Neutrophils % (A) 60 %; Platelet Count 325 k/uL (150-450); RBC 4.48 m/uL (3.80-5.40); RDW 12.5 % (11.5-15.5); WBC 6.4 k/uL (3.8-10.6)
--- NOTE | 2018-07-08 03:32 | ED ---
General Adult HPI - General Source: patient, RN notes reviewed Mode of arrival: wheelchair Limitations: no limitations <Pratik Ball - Last Filed: 07/08/18 17:13> <Ja Cruz - Last Filed: 07/10/18 23:43> - General Chief complaint: Upper Respiratory Infection Stated complaint: Chest Pain, sore throat Time Seen by Provider: 07/08/18 01:44 - History of Present Illness Initial comments: 57-year-old female with a past medical history of GERD and "small cardiac problems" presents to the emergency department for a chief complaint left sided sharp stabbing pain under her left shoulder blade worsened when breathing. She denies any midline back pain. Patient states the pain radiates around her side into the front of her chest as well as her left shoulder. She states this started about 6 hours prior to arrival. Patient denies this ever happening before. Patient is not sure what makes the pain better. She states coughing makes the pain worse as well as taking a deep breath. She denies any shortness of breath. Patient admits to a mild cough over the past few days as well as a sore throat. She states she has pain with swallowing but states she has been eating and drinking normally. She denies any fevers or chills. Patient has no other complaints at this time including shortness of breath, abdominal pain, nausea or vomiting, headache, or visual changes. (Pratik Ball) - Related Data Home Medications Medication Instructions Recorded Confirmed Gabapentin [Neurontin] 400 mg PO BID 02/20/15 07/08/18 LORazepam [Ativan] 1 mg PO DAILY PRN 02/20/15 07/08/18 carBAMazepine [TEGretol] 400 mg PO Q12H 02/20/15 07/08/18 Aspirin EC [Ecotrin Low Dose] 162 mg PO DAILY 12/20/17 07/08/18 Omeprazole 20 mg PO DAILY 04/12/18 07/08/18 Ibuprofen [Motrin] 800 mg PO TID PRN 07/08/18 07/08/18 Previous Rx's Medication Instructions Recorded Atorvastatin [Lipitor] 80 mg PO DAILY #90 tab 07/08/18 Allergies Allergy/AdvReac Type Severity Reaction Status Date / Time morphine AdvReac Itching Verified 04/12/18 13:54 Review of Systems ROS Other: All systems not noted in ROS Statement are negative. <Pratik Ball - Last Filed: 07/08/18 17:13> ROS Other: All systems not noted in ROS Statement are negative. <Ja Cruz - Last Filed: 07/10/18 23:43> ROS Statement: Those systems with pertinent positive or pertinent negative responses have been documented in the HPI. Past Medical History Past Medical History: Chest Pain / Angina, GERD/Reflux, Musculoskeletal Disorder Additional Past Medical History / Comment(s): EPILEPSY-LAST SEIZURE APPROX 8 YRS ,CHRONIC PAIN TO ABD RADIATING RT HIP AND LEG.-COMES AND G0ES. HAS HAD TROUBLE SWALLOWING SINCE THE LAST 6 MONTHS History of Any Multi-Drug Resistant Organisms: None Reported Past Surgical History: Appendectomy, Cholecystectomy, Heart Catheterization, Hernia Repair, Hysterectomy, Tubal Ligation Additional Past Surgical History / Comment(s): RT INGUINAL HERNIA SURGERY W/ MESH, LT INGUINAL HERNIA REPAIR, BLADDER SLING,LT BREAST BX,APRIL KNEE ARTHROSCOPY ,RT ANKLE ARTHROSCOPY, NERVE REMOVED RT FOOT, esophageal strictures Past Anesthesia/Blood Transfusion Reactions: Previous Problems w/ Anesthesia, Motion Sickness Additional Past Anesthesia/Blood Transfusion Reaction / Comment(s): LOW B/P AND PAIN CONTROL AFTER SURGERY Past Psychological History: Anxiety, Depression Smoking Status: Never smoker Past Alcohol Use History: None Reported Past Drug Use History: None Reported - Past Family History Father Family Medical History: Myocardial Infarction ([place]) Additional Family Medical History / Comment(s): AT AGE 75 WITH [place], ABDOMINAL ANEURYSM,EMPHYSEMA, HEART PROBLEMS Mother Additional Family Medical History / Comment(s): WITH GI BLEED AT AGE 73,ALHEIMER'S DISEASE Brother(s) Family Medical History: Renal Disease Additional Family Medical History / Comment(s): MULTIPLE CONGENITAL SPINA BIFIDA <Pratik Ball P - Last Filed: 07/08/18 17:13> General Exam Limitations: no limitations General appearance: alert, in no apparent distress Head exam: Present: atraumatic, normocephalic, normal inspection Eye exam: Present: normal appearance, PERRL, EOMI. Absent: scleral icterus, conjunctival injection, periorbital swelling ENT exam: Present: normal exam, normal oropharynx (Nonerythematous, uvula midline, no tonsillar exudates noted bilaterally), mucous membranes moist, TM's normal bilaterally, normal external ear exam Neck exam: Present: normal inspection, full ROM. Absent: tenderness, meningismus, lymphadenopathy Respiratory exam: Present: normal lung sounds bilaterally, chest wall tenderness (minimal tenderness to palpation of the chest wall ntoed). Absent: respiratory distress, wheezes, rales, rhonchi, stridor Cardiovascular Exam: Present: regular rate, normal rhythm, normal heart sounds. Absent: systolic murmur, diastolic murmur, rubs, gallop, clicks GI/Abdominal exam: Present: soft, normal bowel sounds. Absent: distended, tenderness, guarding, rebound, rigid Extremities exam: Present: full ROM (Full range of motion of the left upper extremity including the left shoulder without exacerbation of pain) Neurological exam: Present: alert, oriented X3, CN II-XII intact Psychiatric exam: Present: normal affect, normal mood <Pratik Ball - Last Filed: 07/08/18 17:13> Vital Signs 07/08/18 07/08/18 07/08/18 00:38 01:16 01:20 Temperature 97.6 F Pulse Rate 80 89 84 Respiratory 18 30 H 18 Rate Blood Pressure 113/81 130/81 O2 Sat by Pulse 99 96 Oximetry 07/08/18 07/08/18 07/08/18 02:00 03:00 04:00 Temperature 97.7 F Pulse Rate 72 74 82 Respiratory 16 18 16 Rate Blood Pressure 130/84 133/87 115/68 O2 Sat by Pulse 97 96 96 Oximetry 07/08/18 07/08/18 04:06 05:00 Temperature Pulse Rate 79 70 Respiratory 17 20 Rate Blood Pressure 127/83 134/87 O2 Sat by Pulse 98 100 Oximetry Medical Decision Making - Lab Data Result diagrams: 07/08/18 02:45 07/08/18 02:45 <Pratik Ball - Last Filed: 07/08/18 17:13> - Lab Data Result diagrams: 07/08/18 02:45 07/08/18 02:45 <Ja Cruz - Last Filed: 07/10/18 23:43> - Medical Decision Making 57-year-old female with a past medical history of GERD and "small cardiac problems" presents to the emergency department for chief complaint of left sided sharp stabbing pain under the left shoulder blade worsened when breathing. Patient states it radiates around to the left chest and into her left shoulder. She denies pain with movement of the left shoulder. She states this started about 6 hours prior to arrival and has not subsided. She also had a mild cough over the past 2 days and complains of a sore throat. CBC and CMP are unremarkable. D-dimer 0.42. Troponin is negative. At this time patient will be admitted for observation and repeat troponins. (Pratik Ball) I saw this patient in conjunction with the physician scheduling assistant. I performed independent history and physical exam. Agree with case management. (Ja Cruz) - Lab Data Lab Results 07/08/18 07/08/18 07/08/18 Range/Units 02:45 02:45 02:45 WBC 6.4 (3.8-10.6) k/uL RBC 4.48 (3.80-5.40) m/uL Hgb 14.5 (11.4-16.0) gm/dL Hct 41.8 (34.0-46.0) % MCV 93.3 (80.0-100.0) fL MCH 32.4 (25.0-35.0) pg MCHC 34.7 (31.0-37.0) g/dL RDW 12.5 (11.5-15.5) % Plt Count 325 (150-450) k/uL Neutrophils % 60 % Lymphocytes % 28 % Monocytes % 6 % Eosinophils % 3 % Basophils % 1 % Neutrophils # 3.8 (1.3-7.7) k/uL Lymphocytes # 1.8 (1.0-4.8) k/uL Monocytes # 0.4 (0-1.0) k/uL Eosinophils # 0.2 (0-0.7) k/uL Basophils # 0.1 (0-0.2) k/uL PT (9.0-12.0) sec INR (<1.2) APTT (22.0-30.0) sec D-Dimer (<0.60) mg/L FEU Sodium 142 (137-145) mmol/L Potassium 4.4 (3.5-5.1) mmol/L Chloride 109 H (98-107) mmol/L Carbon Dioxide 24 (22-30) mmol/L Anion Gap 9 mmol/L BUN 12 (7-17) mg/dL Creatinine 0.67 (0.52-1.04) mg/dL Est GFR (CKD-EPI)AfAm >90 (>60 ml/min/1.73 sqM) Est GFR (CKD-EPI)NonAf >90 (>60 ml/min/1.73 sqM) Glucose 99 (74-99) mg/dL Calcium 9.6 (8.4-10.2) mg/dL Magnesium 2.2 (1.6-2.3) mg/dL Total Bilirubin 0.4 (0.2-1.3) mg/dL AST 23 (14-36) U/L ALT 28 (9-52) U/L Alkaline Phosphatase 86 (38-126) U/L Total Creatine Kinase 39 (30-135) U/L CK-MB (CK-2) <0.2 (0.0-2.4) ng/mL CK-MB (CK-2) Rel Index Troponin I <0.012 (0.000-0.034) ng/mL Total Protein 7.2 (6.3-8.2) g/dL Albumin 4.3 (3.5-5.0) g/dL Group A Strep Rapid (Negative) 07/08/18 07/08/18 Range/Units 02:45 04:00 WBC (3.8-10.6) k/uL RBC (3.80-5.40) m/uL Hgb (11.4-16.0) gm/dL Hct (34.0-46.0) % MCV (80.0-100.0) fL MCH (25.0-35.0) pg MCHC (31.0-37.0) g/dL RDW (11.5-15.5) % Plt Count (150-450) k/uL Neutrophils % % Lymphocytes % % Monocytes % % Eosinophils % % Basophils % % Neutrophils # (1.3-7.7) k/uL Lymphocytes # (1.0-4.8) k/uL Monocytes # (0-1.0) k/uL Eosinophils # (0-0.7) k/uL Basophils # (0-0.2) k/uL PT 9.8 (9.0-12.0) sec INR 1.0 (<1.2) APTT 24.5 (22.0-30.0) sec D-Dimer 0.42 (<0.60) mg/L FEU Sodium (137-145) mmol/L Potassium (3.5-5.1) mmol/L Chloride (98-107) mmol/L Carbon Dioxide (22-30) mmol/L Anion Gap mmol/L BUN (7-17) mg/dL Creatinine (0.52-1.04) mg/dL Est GFR (CKD-EPI)AfAm (>60 ml/min/1.73 sqM) Est GFR (CKD-EPI)NonAf (>60 ml/min/1.73 sqM) Glucose (74-99) mg/dL Calcium (8.4-10.2) mg/dL Magnesium (1.6-2.3) mg/dL Total Bilirubin (0.2-1.3) mg/dL AST (14-36) U/L ALT (9-52) U/L Alkaline Phosphatase (38-126) U/L Total Creatine Kinase (30-135) U/L CK-MB (CK-2) (0.0-2.4) ng/mL CK-MB (CK-2) Rel Index Troponin I (0.000-0.034) ng/mL Total Protein (6.3-8.2) g/dL Albumin (3.5-5.0) g/dL Group A Strep Rapid Negative (Negative) Disposition Time of Disposition: 17:12 <Pratik Ball - Last Filed: 07/08/18 17:13> <Ja Cruz - Last Filed: 07/10/18 23:43> Clinical Impression: Back pain, Chest pain, Sore throat Disposition: ADMITTED IP TO THIS [facility] Condition: Good
[2018-07-08 03:42] LABS: D-Dimer 0.42 mg/L FEU (<0.60); Partial Thromboplastin Time 24.5 sec (22.0-30.0); Prothrombin Time 9.8 sec (9.0-12.0)
[2018-07-08 03:54] LABS: ALT 28 U/L (9-52); AST 23 U/L (14-36); Albumin 4.3 g/dL (3.5-5.0); Alkaline Phosphatase 86 U/L (38-126); Anion Gap 9 mmol/L; Blood Urea Nitrogen 12 mg/dL (7-17); Calcium 9.6 mg/dL (8.4-10.2); Carbon Dioxide 24 mmol/L (22-30); Chloride 109 mmol/L (98-107); Glucose 99 mg/dL (74-99); Magnesium 2.2 mg/dL (1.6-2.3); Potassium 4.4 mmol/L (3.5-5.1); Sodium 142 mmol/L (137-145); Total Bilirubin 0.4 mg/dL (0.2-1.3); Total Protein 7.2 g/dL (6.3-8.2)
--- NOTE | 2018-07-08 04:00 | XR ---
EXAM: XR Chest, 2 Views CLINICAL HISTORY: ITS.REASON XR Reason: Chest Pain TECHNIQUE: Frontal and lateral views of the chest. COMPARISON: No relevant prior studies available. Impression: Lungs: Right lower lobe discoid subsegmental atelectasis. Pleural space: No effusion. Heart: No cardiomegaly. Mediastinum: Unremarkable. Bones/joints: No acute findings.
[2018-07-08 04:11] LABS: Creatine Kinase 39 U/L (30-135)
[2018-07-08 04:24] LABS: Creatine Kinase MB <0.2 ng/mL (0.0-2.4); Troponin I <0.012 ng/mL (0.000-0.034)
[2018-07-08] MEDS ORDERED: HYDROcodone/APAP 5-325MG 1 EACH TAB PO STA (05:32)
[2018-07-08] MEDS ORDERED: NITROGLYCERIN SL TABS 0.4 MG TAB SUBLINGUAL PRN (05:44)
[2018-07-08] MEDS ORDERED: LORazepam 1 MG TAB PO PRN (05:48)
[2018-07-08] MEDS ORDERED: HYDROcodone/APAP 5-325MG 1 EACH TAB PO PRN (05:48)
[2018-07-08 06:55] VITALS: RESP 16
[2018-07-08] MEDS ORDERED: PANTOPRAZOLE 40 MG TABLET PO SCH (07:30)
[2018-07-08 07:57] LABS: Creatine Kinase 31 U/L (30-135)
[2018-07-08 08:10] LABS: Creatine Kinase MB <0.2 ng/mL (0.0-2.4); Troponin I <0.012 ng/mL (0.000-0.034)
[2018-07-08] MEDS ORDERED: carBAMazepine 200 MG TAB PO SCH (09:00)
[2018-07-08] MEDS ORDERED: GABAPENTIN 400 MG CAP PO SCH (09:00)
[2018-07-08] MEDS ORDERED: IBUPROFEN 600 MG TAB PO STA (09:15)
[2018-07-08 11:30] LABS: C Reactive Protein 7.4 mg/L (<10.0)
[2018-07-08 11:52] LABS: Glucose,Whole Blood 123 mg/dL (75-99)
[2018-07-08 15:10] LABS: Creatine Kinase 32 U/L (30-135)
[2018-07-08 15:23] LABS: Creatine Kinase MB <0.2 ng/mL (0.0-2.4); Troponin I <0.012 ng/mL (0.000-0.034)
--- NOTE | 2018-07-08 15:28 | P.CRDCN ---
History of Present Illness History of present illness: This is a pleasant 57-year-old female past medical history significant for seizure disorder and dyslipidemia. She follows in the office with Dr. Harrison. Weakness in consultation for symptoms of chest discomfort she said it all started at 1800 last night with stabbing pain in the mid-scapular region. She then woke up at 0030 with pain in left thoracic region with radiation around to anterior chest wall. She also felt mildly lightheaded and palpitations. She denies associated shortness of breath. The acute phase of her pain has subsided although she still feels mild discomfort in the left scapular region that is worse on palpation or with deep inspiration. She denies cough, fever, chills, PND or orthopnea. She states she has been told she has elevated cholesterol and medication however she stopped taking this medication and has been attempting diet and exercise modifications. EKG reveals sinus mechanism with no acute ST or T wave abnormalities noted. Chest x-ray is negative for acute cardiopulmonary process. Laboratory data reviewed, cardiac enzymes negative 3, LDL 223, HDL 40, triglycerides 196 and total cholesterol 302, CRP 7.4, hemoglobin 14.5, platelets 325, d-dimer 0.4 to, sodium 142, potassium 4.4, magnesium 2.2, creatinine 0.67. Current cardiac medications include aspirin 162 mg daily. At the time of my exam: CONSTITUTIONAL: Denies fever. Denies chills. EYES: Denies blurred vision. Denies vision changes. Denies eye pain. EARS, NOSE, MOUTH & THROAT: Denies headache. Denies sore throat. Denies ear pain. CARDIOVASCULAR: Denies chest pain. Denies shortness of breath. Denies orthopnea. Denies PND. Denies palpitations. Complains of pleuritic chest discomfort as well as left mid scapular pain. RESPIRATORY: Denies cough. GASTROINTESTINAL: Denies abdominal pain. Denies diarrhea. Denies constipation. Denies nausea. Denies vomiting. MUSCULOSKELETAL: Denies myalgias. INTEGUMENTARY: Denies pruitis. Denies rash. NEUROLOGIC: Denies numbness. Denies tingling. Denies weakness. PSYCHIATRIC: Denies anxiety. Denies depression. ENDOCRINE: Denies fatigue. Denies weight change. Denies polydipsia. Denies polyurina. GENITOURINARY: Denies burning, hematuria or urgency with micturation. HEMATOLOGIC: Denies history of anemia. Denies bleeding. Blood pressure 140/70 heart rate 88 afebrile maintaining oxygen saturation on room air GENERAL: This is a 57-year-old female in no apparent distress at the time of my examination. HEENT: Head is atraumatic, normocephalic. Pupils are equal, round. Sclerae anicteric. Conjunctivae are clear. Mucous membranes of the mouth are moist. Neck is supple. There is no jugular venous distention. No carotid bruit is heard. LUNGS: Clear to auscultation no wheezes, rales or rhonchi. No chest wall tenderness is noted on palpation or with deep breathing. HEART: Regular rate and rhythm without murmurs, rubs or gallops. S1 and S2 heard. ABDOMEN: Soft, nontender. Bowel sounds are heard. No organomegaly noted. EXTREMITIES: No evidence of peripheral edema and no calf tenderness noted. VASCULAR: Radial and dorsalis pedis pulses palpated, no evidence of clubbing. NEUROLOGIC: Patient is awake, alert and oriented x3. ASSESSMENT Pleuritic chest discomfort suggestive of viscous skeletal strain Dyslipidemia, uncontrolled History of seizure disorder PLAN An acute coronary event is ruled out. Obtain 2-D echocardiogram and Doppler study to assess cardiac structure and function. Give the patient Motrin 600 mg 1 now. Initiate on atorvastatin 80 mg daily. Aspirin 81 mg daily is sufficient rather than 162 mg daily. Stable from a cardiac perspective. Follow-up with Dr. Harrison upon discharge. Nurse Practitioner note has been reviewed, I agree with a documented findings and plan of care. Patient was seen and examined. Past Medical History Past Medical History: Chest Pain / Angina, GERD/Reflux, Musculoskeletal Disorder Additional Past Medical History / Comment(s): EPILEPSY-LAST SEIZURE APPROX 8 YRS ,CHRONIC PAIN TO ABD RADIATING RT HIP AND LEG.-COMES AND G0ES. HAS HAD TROUBLE SWALLOWING SINCE THE LAST 6 MONTHS History of Any Multi-Drug Resistant Organisms: None Reported Past Surgical History: Appendectomy, Cholecystectomy, Heart Catheterization, Hernia Repair, Hysterectomy, Tubal Ligation Additional Past Surgical History / Comment(s): RT INGUINAL HERNIA SURGERY W/ MESH, LT INGUINAL HERNIA REPAIR, BLADDER SLING,LT BREAST BX,APRIL KNEE ARTHROSCOPY ,RT ANKLE ARTHROSCOPY, NERVE REMOVED RT FOOT, esophageal strictures Past Anesthesia/Blood Transfusion Reactions: Previous Problems w/ Anesthesia, Motion Sickness Additional Past Anesthesia/Blood Transfusion Reaction / Comment(s): LOW B/P AND PAIN CONTROL AFTER SURGERY Past Psychological History: Anxiety, Depression Smoking Status: Never smoker Past Alcohol Use History: None Reported Past Drug Use History: None Reported - Past Family History Father Family Medical History: Myocardial Infarction ([place]) Additional Family Medical History / Comment(s): AT AGE 75 WITH [place], ABDOMINAL ANEURYSM,EMPHYSEMA, HEART PROBLEMS Mother Additional Family Medical History / Comment(s): WITH GI BLEED AT AGE 73,ALHEIMER'S DISEASE Brother(s) Family Medical History: Renal Disease Additional Family Medical History / Comment(s): MULTIPLE CONGENITAL SPINA BIFIDA Medications and Allergies Home Medications Medication Instructions Recorded Confirmed Type Gabapentin [Neurontin] 400 mg PO BID 02/20/15 07/08/18 History LORazepam [Ativan] 1 mg PO DAILY PRN 02/20/15 07/08/18 History carBAMazepine [TEGretol] 400 mg PO Q12H 02/20/15 07/08/18 History Aspirin EC [Ecotrin Low Dose] 162 mg PO DAILY 12/20/17 07/08/18 History Omeprazole 20 mg PO DAILY 04/12/18 07/08/18 History Ibuprofen [Motrin] 800 mg PO TID PRN 07/08/18 07/08/18 History Allergies Allergy/AdvReac Type Severity Reaction Status Date / Time morphine AdvReac Itching Verified 04/12/18 13:54 Physical Exam Vitals: Vital Signs Temp Pulse Pulse Resp BP BP Pulse Ox 07/08/18 08:00 97.9 F 74 16 131/85 97 07/08/18 06:24 98.0 F 78 16 124/77 98 07/08/18 05:00 70 20 134/87 100 07/08/18 04:06 79 17 127/83 98 07/08/18 04:00 82 16 115/68 96 07/08/18 03:00 97.7 F 74 18 133/87 96 07/08/18 02:00 72 16 130/84 97 07/08/18 01:20 84 18 130/81 96 07/08/18 01:16 89 30 H 07/08/18 00:38 97.6 F 80 18 113/81 99 Intake and Output 07/07/18 07/08/1818 22:59 06:59 14:59 Other: Weight 90.718 kg Results 07/08/18 02:45 07/08/18 02:45 Cardiac Enzymes 07/08/18 07/08/18 07/08/18 Range/Units 02:45 02:45 07:14 AST 23 (14-36) U/L CK-MB (CK-2) <0.2 <0.2 (0.0-2.4) ng/mL Troponin I <0.012 <0.012 (0.000-0.034) ng/mL Coagulation 07/08/18 Range/Units 02:45 PT 9.8 (9.0-12.0) sec APTT 24.5 (22.0-30.0) sec CBC 07/08/18 Range/Units 02:45 WBC 6.4 (3.8-10.6) k/uL RBC 4.48 (3.80-5.40) m/uL Hgb 14.5 (11.4-16.0) gm/dL Hct 41.8 (34.0-46.0) % Plt Count 325 (150-450) k/uL Comprehensive Metabolic Panel 07/08/18 Range/Units 02:45 Sodium 142 (137-145) mmol/L Potassium 4.4 (3.5-5.1) mmol/L Chloride 109 H (98-107) mmol/L Carbon Dioxide 24 (22-30) mmol/L BUN 12 (7-17) mg/dL Creatinine 0.67 (0.52-1.04) mg/dL Glucose 99 (74-99) mg/dL Calcium 9.6 (8.4-10.2) mg/dL AST 23 (14-36) U/L ALT 28 (9-52) U/L Alkaline Phosphatase 86 (38-126) U/L Total Protein 7.2 (6.3-8.2) g/dL Albumin 4.3 (3.5-5.0) g/dL Current Medications Generic Name Dose Route Start Last Admin Trade Name Freq PRN Reason Stop Dose Admin Hydrocodone Bitart/Acetaminophen 1 each 07/08/18 05:48 [place] 5-325 PO Q6HR PRN Pain Aspirin 325 mg 07/09/18 09:00 Aspirin PO DAILY EMPERATRIZ Carbamazepine 400 mg 07/08/18 09:00 07/08/18 08:43 Tegretol PO 400 mg Q12HR EMPERATRIZ Administration Gabapentin 400 mg 07/08/18 09:00 07/08/18 08:44 Neurontin PO 400 mg BID EMPERATRIZ Administration Lorazepam 1 mg 07/08/18 05:48 Ativan PO TID PRN Anxiety Nitroglycerin 0.4 mg 07/08/18 05:44 Nitrostat SUBLINGUAL Q5M PRN Chest Pain Pantoprazole Sodium 40 mg 07/08/18 07:30 07/08/18 08:44 Protonix PO 40 mg [id number] EMPERATRIZ Administration Intake and Output 07/07/18 07/08/18 07/08/18 22:59 06:59 14:59 Other: Weight 90.718 kg 07/08/18 02:45 07/08/18 02:45
[2018-07-08] MEDS ORDERED: ATORVASTATIN 80 MG TAB PO SCH (15:30)
[2018-07-08 16:28] VITALS: BP 133/66; PULSE 77; TEMP 98
--- NOTE | 2018-07-09 05:53 | DS ---
DISCHARGE SUMMARY HISTORY AND PHYSICAL AND DISCHARGE SUMMARY: DATE OF ADMISSION: 07/08/2018 DATE OF DISCHARGE: 07/08/2018 PRESENTING COMPLAINT: Chest pain. HISTORY OF PRESENTING COMPLAINT: This is a pleasant 57-year-old patient Dr. Hood. Chronic stable medical conditions include GERD, esophageal stricture, anxiety, and osteoarthritis. The patient recently had esophageal stricture dilated by Dr. Burnham. The patient had gone grocery shopping yesterday and also decided to buy salt packs. The patient did buy two 25 pound salt bags which she carried in each arm to the car. Yesterday evening when she sat down she noticed sharp pain in the left part of the chest, sometimes anteriorly, sometimes posteriorly, more so with movement. There was no radiation. No short of breath. No dizziness or lightheadedness. No precordial pain per se. The patient presented to the ER. There was concern about cardiac cause and she was admitted for the same. Denies any prior cardiac history. Hence, Cardiology was consulted. Troponins were ordered. REVIEW OF SYSTEMS: CONSTITUTIONAL: None. HEENT: None. RESPIRATORY: None. CARDIOVASCULAR: None. GASTROINTESTINAL Heartburn. GENITOURINARY: None. MUSCULOSKELETAL: As above. DERMATOLOGICAL, HEMATOLOGIC, LYMPHATICS: None. NEUROLOGICAL: None. PSYCHIATRY None. PAST MEDICAL HISTORY: GERD, esophageal stricture with dilatation, anxiety, osteoarthritis of multiple joints. PAST SURGICAL HISTORY: Appendectomy, cholecystectomy, cardiac catheterization, hernia repair, hysterectomy, tubal ligation, right inguinal hernia surgery with mesh, left inguinal hernia repair, bladder sling, left breast biopsy, bilateral knee arthroscopy, now removed from right foot, esophageal stricture dilatation. SOCIAL HISTORY: Does not smoke or drink alcohol. . FAMILY HISTORY: Heart attack age of 75, abdominal aneurysm, emphysema. HOME MEDICATIONS: 1. Ativan 1 mg p.o. daily p.r.n. 2. Neurontin 400 mg b.i.d. 3. Aspirin 160 mg a day. 4. Tegretol 400 mg q.12. 5. Omeprazole 20 mg p.o. daily. 6. Motrin 800 mg p.o. t.i.d. p.r.n. 7. Lipitor 80 mg p.o. daily. ALLERGIES: MORPHINE. PHYSICAL EXAMINATION: Temperature 98.1, pulse 80, respiration 16, blood pressure 140/70, pulse ox 97% on room air. GENERAL APPEARANCE: Average build, sitting up, not in distress. EYES: Pupils equal. Conjunctivae normal. HEENT: External ears and nose normal. Oral cavity normal. NECK: JVD not raised. Mass not palpable. Respiratory effort normal. LUNGS: Clear. CARDIOVASCULAR: First and second sounds normal. No edema. ABDOMEN: Soft, nontender. Liver and spleen not palpable. LYMPHATIC: No lymph palpable in the neck or axilla. PSYCHIATRY: Alert and oriented x3. Mood and affect normal. NEUROLOGIC: Pupils equal. Cranial nerves grossly intact. Power is grossly intact. MUSCULOSKELETAL: Evidence of osteoarthritis, especially in the hands and knees. There was some reproducible chest pain earlier today on the chest wall. Improved with Motrin. PSYCHIATRIC: Alert and oriented x3. Mood and affect normal. INVESTIGATIONS: White count 6.4, hemoglobin 14.5, potassium 4.4. BUN and creatinine are normal. LDL 223. Troponin times 2 negative. Chest x-ray reported negative. ASSESSMENT: 1. Left chest wall pain, appears to be musculoskeletal, sharp in nature following lifting of 25 pound salt packs. Not too much of a cardiac nature to the presentation. We will get a cardiology opinion for the same. 2. Esophageal stricture, status post recent dilatation. 3. Anxiety disorder not otherwise specified. 4. Gastroesophageal reflux disease. 5. Primary osteoarthritis of multiple joints bilateral. PLAN: Patient was seen by Cardiology who okayed the patient to be discharged. The patient was advised about local care. Home medications to continue. DISPOSITION: Home. Follow up with Dr. Hood. MMMOUSTAPHAL / DANIELN: [id number] /
[2018-07-09] MEDS ORDERED: ASPIRIN 81 MG PO SCH (09:00)
[2018-07-09] MEDS ORDERED: ASPIRIN 325 MG TAB PO SCH (09:00)
--- NOTE | 2018-07-10 10:24 | ECHOF ---
Referral Reason:cp MEASUREMENTS -------- HEIGHT: 175.3 cm WEIGHT: 90.7 kg BP: 131/85 RVIDd: 2.9 cm (< 3.3) IVSd: 1.1 cm (0.6 - 1.1) LVIDd: 4.7 cm (3.9 - 5.3) LVPWd: 1.2 cm (0.6 - 1.1) IVSs: 1.8 cm LVIDs: 3.1 cm LVPWs: 1.7 cm LA Diam: 3.4 cm (2.7 - 3.8) LAESV Index (A-L): 17.77 ml/m Ao Diam: 3.6 cm (2.0 - 3.7) AV Cusp: 2.3 cm (1.5 - 2.6) MV EXCURSION: 19.089 mm (> 18.000) MV EF SLOPE: 94 mm/s (70 - 150) EPSS: 0.5 cm MV E Andrae: 0.78 m/s MV DecT: 203 ms MV A Andrae: 0.75 m/s MV E/A Ratio: 1.03 RAP: 5.00 mmHg RVSP: 21.28 mmHg FINDINGS -------- Sinus rhythm. This was a technically adequate study. The left ventricular size is normal. There is borderline concentric left ventricular hypertrophy. Overall left ventricular systolic function is normal with, an EF between 55 - 60 %. The right ventricle is normal in size. Normal LA size by volume 22+/-6 ml/m2. The right atrium is normal in size. There is mild aortic valve sclerosis. The mitral valve is normal. Mild mitral regurgitation is present. Mild tricuspid regurgitation present. Right ventricular systolic pressure is normal at < 35 mmHg. The right ventricular systolic pressure, as measured by Doppler, is 21.28mmHg. Trace/mild (physiologic) pulmonic regurgitation. The aortic root size is normal. Normal inferior vena cava with normal inspiratory collapse consistent with estimated right atrial pre ssure of 5 mmHg. There is no pericardial effusion. CONCLUSIONS -------- 1. Sinus rhythm. 2. This was a technically adequate study. 3. The left ventricular size is normal. 4. There is borderline concentric left ventricular hypertrophy. 5. Overall left ventricular systolic function is normal with, an EF between 55 - 60 %. 6. Normal LA size by volume 22+/-6 ml/m2. 7. There is mild aortic valve sclerosis. 8. The mitral valve is normal. 9. Mild mitral regurgitation is present. 10. Mild tricuspid regurgitation present. 11. Right ventricular systolic pressure is normal at < 35 mmHg. 12. Trace/mild (physiologic) pulmonic regurgitation. 13. The aortic root size is normal. 14. Normal inferior vena cava with normal inspiratory collapse consistent with estimated right atrial pressure of 5 mmHg. 15. There is no pericardial effusion. CUSTOMER RELATIONS COORDINATOR: Sonia Gray RDCS
== END 2018-07-08 17:30 | disposition home or self-care (01) ==
LOC: EC 00:36 → 3SCARD 05:45
PROVIDERS: ADMIT Hospitalist; ATTEND Hospitalist
DX: R07.89 Other chest pain (principal); M54.6 Pain in thoracic spine; K21.9 Gastro-esophageal reflux disease without esophagitis; E78.5 Hyperlipidemia, unspecified; K22.2 Esophageal obstruction; J02.9 Acute pharyngitis, unspecified; R42 Dizziness and giddiness; R00.2 Palpitations; M17.0 Bilateral primary osteoarthritis of knee; M19.042 Primary osteoarthritis, left hand; M19.041 Primary osteoarthritis, right hand; G40.909 Epilepsy, unspecified, not intractable, without status epilepticus; G89.29 Other chronic pain; R10.9 Unspecified abdominal pain; F41.9 Anxiety disorder, unspecified; F32.9 Major depressive disorder, single episode, unspecified; Z79.82 Long term (current) use of aspirin; Z79.899 Other long term (current) drug therapy; Z88.5 Allergy status to narcotic agent; Z90.49 Acquired absence of other specified parts of digestive tract; Z90.710 Acquired absence of both cervix and uterus; Z82.49 Family history of ischemic heart disease and other diseases of the circulatory system; Z82.5 Family history of asthma and other chronic lower respiratory diseases; Z82.0 Family history of epilepsy and other diseases of the nervous system; Z83.79 Family history of other diseases of the digestive system; Z82.79 Family history of other congenital malformations, deformations and chromosomal abnormalities; Z84.1 Family history of disorders of kidney and ureter
CPT/HCPCS: 96374; 99284; 36415; 93005; 93306; 85379; 80061; 80053; 85652; 82550; 82553; 83735; 84484; 85025; 85610; 85730; 86140; 87081; 87430; 71046; G0378; J1885

== ENCOUNTER 2018-08-12 13:57 | Emergency (ER) | payer OTHER, MEDICARE ==
[2018-08-12 14:15] VITALS: TEMP 98.1
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
[2018-08-12 16:24] VITALS: BP 124/89; PULSE 16; RESP 16
== END 2018-08-12 16:20 | disposition home or self-care (01) ==
LOC: EC 13:57
DX: M54.5 Low back pain (principal); M54.2 Cervicalgia; K21.9 Gastro-esophageal reflux disease without esophagitis; G40.909 Epilepsy, unspecified, not intractable, without status epilepticus; F32.9 Major depressive disorder, single episode, unspecified; F41.9 Anxiety disorder, unspecified; Z79.82 Long term (current) use of aspirin; Z79.899 Other long term (current) drug therapy; Z88.5 Allergy status to narcotic agent; Z95.818 Presence of other cardiac implants and grafts; V89.0XXA Person injured in unspecified motor-vehicle accident, nontraffic, initial encounter; Y92.410 Unspecified street and highway as the place of occurrence of the external cause
CPT/HCPCS: 72050; 72110; 99284

== ENCOUNTER → 2019-04-25 | Outpatient (CLI) | payer MEDICARE ==
--- NOTE | 2019-04-26 08:44 | MM ---
Reason for exam: screening (asymptomatic). Last mammogram was performed 3 years and 7 months ago. History: Patient is postmenopausal. Benign excisional biopsy of the left breast, 1990. Physical Findings: A clinical breast exam by your physician is recommended on an annual basis and results should be correlated with mammographic findings. MG 3D Screening Mammo W/Cad Bilateral CC and MLO view(s) were taken. Prior study comparison: September 11, 2015, bilateral MG screening mammo w CAD. March 19, 2014, bilateral MG screening mammo w CAD. The breast tissue is heterogeneously dense. This may lower the sensitivity of mammography. Stable benign calcifications. There is no discrete abnormality. No significant changes when compared with prior studies. ASSESSMENT: Benign, BI-RAD 2 RECOMMENDATION: Routine screening mammogram of both breasts in 1 year.
== END | disposition home or self-care (01) ==
LOC: RADMAMWWP 07:54
PROVIDERS: ATTEND Family Medicine
DX: Z12.31 Encounter for screening mammogram for malignant neoplasm of breast (principal)
CPT/HCPCS: 77063; 77067

== ENCOUNTER → 2020-07-07 | Outpatient (CLI) | payer MEDICARE ==
--- NOTE | 2020-07-08 12:25 | MM ---
Reason for exam: screening (asymptomatic). Last mammogram was performed 1 year and 2 months ago. History: Patient is postmenopausal. Benign excisional biopsy of the left breast, 1990. Physical Findings: A clinical breast exam by your physician is recommended on an annual basis and results should be correlated with mammographic findings. MG 3D Screening Mammo W/Cad Bilateral CC and MLO view(s) were taken. Prior study comparison: April 25, 2019, bilateral MG 3d screening mammo w/cad. September 11, 2015, bilateral MG screening mammo w CAD. The breast tissue is heterogeneously dense. This may lower the sensitivity of mammography. Finding #1: Stable architectural distortion in the upper outer quadrant of the left breast consistent with known excisional changes. Finding #2: There are typically benign round calcifications in both breasts. There is no discrete abnormality. ASSESSMENT: Benign, BI-RAD 2 RECOMMENDATION: Routine screening mammogram of both breasts in 1 year.
== END | disposition home or self-care (01) ==
LOC: RADMAMWWP 08:46
PROVIDERS: ATTEND Family Medicine
DX: Z12.31 Encounter for screening mammogram for malignant neoplasm of breast (principal)
CPT/HCPCS: 77063; 77067

== ENCOUNTER → 2021-07-15 | Outpatient (CLI) | payer MEDICARE ==
--- NOTE | 2021-07-16 14:33 | MM ---
Reason for exam: screening (asymptomatic). Last mammogram was performed 1 year ago. History: Patient is postmenopausal. Benign excisional biopsy of the left breast, 1990. Physical Findings: A clinical breast exam by your physician is recommended on an annual basis and results should be correlated with mammographic findings. MG Screening Mammo w CAD Bilateral CC and MLO view(s) were taken. Prior study comparison: July 07, 2020, bilateral MG 3d screening mammo w/cad. April 25, 2019, bilateral MG 3d screening mammo w/cad. The breast tissue is heterogeneously dense. This may lower the sensitivity of mammography. No significant changes when compared with prior studies. ASSESSMENT: Benign, BI-RAD 2 RECOMMENDATION: Routine screening mammogram of both breasts in 1 year.
== END | disposition home or self-care (01) ==
LOC: RADMAMWWP 05-20 07:49
PROVIDERS: ATTEND Family Medicine
DX: Z12.31 Encounter for screening mammogram for malignant neoplasm of breast (principal)
CPT/HCPCS: 77067

== ENCOUNTER 2021-08-03 05:45 | Emergency (ER) | payer MEDICARE ==
[2021-08-03 05:52] VITALS: BP 115/76; PULSE 93; RESP 18; TEMP 98.9
--- NOTE | 2021-08-03 06:54 | ED ---
General Adult HPI - General Chief complaint: Fever Stated complaint: Cough, Sore throat Time Seen by Provider: 08/03/21 06:21 Source: patient, RN notes reviewed Mode of arrival: ambulatory Limitations: no limitations - History of Present Illness Initial comments: This is a 60-year-old female presents emergency Department with chief complaint of possible Cob[place] 18. Patient states that she's had some congestion, fever or chills bodyaches cough or shortness of breath. Patient states she was exposed recently. Patient denies any prior vaccine no GI symptoms including nausea and diarrhea constipation or dysuria no recent Tylenol Motrin. - Related Data Home Medications Medication Instructions Recorded Confirmed Gabapentin [Neurontin] 400 mg PO BID 02/20/15 08/12/18 LORazepam [Ativan] 1 mg PO DAILY PRN 02/20/15 08/12/18 carBAMazepine [TEGretol] 400 mg PO Q12H 02/20/15 08/12/18 Aspirin EC [Ecotrin Low Dose] 81 mg PO DAILY 12/20/17 08/12/18 Omeprazole 20 mg PO DAILY 04/12/18 08/12/18 Atorvastatin [Lipitor] 80 mg PO HS 08/12/18 08/12/18 Previous Rx's Medication Instructions Recorded Cyclobenzaprine [Flexeril] 10 mg PO TID PRN #15 tab 08/12/18 Ibuprofen [Motrin] 600 mg PO Q8HR PRN #30 tab 08/12/18 Allergies Allergy/AdvReac Type Severity Reaction Status Date / Time morphine Allergy Itching Verified 08/03/21 05:52 Review of Systems ROS Statement: Those systems with pertinent positive or pertinent negative responses have been documented in the HPI. ROS Other: All systems not noted in ROS Statement are negative. Past Medical History Past Medical History: Chest Pain / Angina, GERD/Reflux, Musculoskeletal Disorder Additional Past Medical History / Comment(s): EPILEPSY-LAST SEIZURE APPROX 8 YRS,CHRONIC PAIN TO ABD RADIATING RT HIP AND LEG.-COMES AND G0ES. HAS HAD TROUBLE SWALLOWING SINCE THE LAST 6 MONTHS History of Any Multi-Drug Resistant Organisms: None Reported Past Surgical History: Appendectomy, Cholecystectomy, Heart Catheterization, Hernia Repair, Hysterectomy, Tubal Ligation Additional Past Surgical History / Comment(s): RT INGUINAL HERNIA SURGERY W/ MESH, LT INGUINAL HERNIA REPAIR, BLADDER SLING,LT BREAST BX,APRIL KNEE ARTHROSCOPY,RT ANKLE ARTHROSCOPY, NERVE REMOVED RT FOOT, esophageal strictures Past Anesthesia/Blood Transfusion Reactions: Previous Problems w/ Anesthesia, Motion Sickness Additional Past Anesthesia/Blood Transfusion Reaction / Comment(s): LOW B/P AND PAIN CONTROL AFTER SURGERY Past Psychological History: Anxiety, Depression Smoking Status: Never smoker Past Alcohol Use History: None Reported Past Drug Use History: None Reported - Past Family History Father Family Medical History: Myocardial Infarction ([place]) Additional Family Medical History / Comment(s): AT AGE [address], ABDOMINAL ANEURYSM,EMPHYSEMA, HEART PROBLEMS Mother Additional Family Medical History / Comment(s): WITH GI BLEED AT AGE 73,ALHEIMER'S DISEASE Brother(s) Family Medical History: Renal Disease Additional Family Medical History / Comment(s): MULTIPLE CONGENITAL SPINA BIFIDA General Exam Limitations: no limitations General appearance: alert, in no apparent distress Head exam: Present: atraumatic, normocephalic, normal inspection Eye exam: Present: normal appearance, PERRL, EOMI. Absent: scleral icterus, conjunctival injection, periorbital swelling ENT exam: Present: normal exam, normal oropharynx, mucous membranes moist Neck exam: Present: normal inspection, full ROM. Absent: tenderness, meningismus, lymphadenopathy Respiratory exam: Present: normal lung sounds bilaterally. Absent: respiratory distress, wheezes, rales, rhonchi, stridor Cardiovascular Exam: Present: regular rate, normal rhythm, normal heart sounds. Absent: systolic murmur, diastolic murmur, rubs, gallop, clicks GI/Abdominal exam: Present: soft, normal bowel sounds. Absent: distended, tenderness, guarding, rebound, rigid Neurological exam: Present: alert, oriented X3 Skin exam: Present: warm, dry, intact, normal color. Absent: rash Course Vital Signs 08/03/21 05:48 Temperature 98.9 F Pulse Rate 93 Respiratory 18 Rate Blood Pressure 115/76 O2 Sat by Pulse 96 Oximetry Medical Decision Making - Medical Decision Making 60-year-old presented for fever cough congestion. Patient is covid 19 positive. Patient was offered monoclonal antibodies patient declined. - Lab Data Lab Results 08/03/21 Range/Units 05:50 Coronavirus (PCR) Detected A (Not Detectd) Disposition Clinical Impression: COVID-19 Disposition: HOME SELF-CARE Condition: Stable Instructions (If sedation given, give patient instructions): Coronavirus Disease 2019 (COVID-19) Additional Instructions: Please return to the Emergency Department if symptoms worsen or any other concerns. Is patient prescribed a controlled substance at d/c from ED?: No Referrals: Yasir Hood MD [Primary Care Provider] - 1-2 days Time of Disposition: 07:41
== END 2021-08-03 08:08 | disposition home or self-care (01) ==
LOC: EC 05:45
DX: U07.1 COVID-19 (principal); K21.9 Gastro-esophageal reflux disease without esophagitis; Z88.5 Allergy status to narcotic agent; Z79.899 Other long term (current) drug therapy
CPT/HCPCS: 87635; 99284

== ENCOUNTER 2021-08-09 13:06 | Emergency (ER) | payer MEDICARE ==
[2021-08-09 13:30] VITALS: RESP 18
[2021-08-09] MEDS ORDERED: CHOLECALCIFEROL 25 MCG (1000 IU) TABLET PO STA (15:16)
[2021-08-09] MEDS ORDERED: carBAMazepine 200 MG TAB PO STA (15:16)
[2021-08-09] MEDS ORDERED: dexAMETHasone 2 MG TAB PO STA (15:16)
[2021-08-09] MEDS ORDERED: LORATADINE 10 MG TAB PO STA (15:16)
[2021-08-09] MEDS ORDERED: GABAPENTIN 400 MG CAP PO STA (15:16)
--- NOTE | 2021-08-09 15:21 | ED ---
General Adult HPI - General Chief complaint: Upper Respiratory Infection Stated complaint: chest pain, trouble breathing Time Seen by Provider: 08/09/21 14:47 Source: patient, RN notes reviewed, old records reviewed Mode of arrival: wheelchair Limitations: no limitations - History of Present Illness Initial comments: Patient is a 60-year-old female with confirmed COVID-19 infection positive daily sick of in our emergency department who presents emergency Department complaining of worsening COVID-19 symptoms. She states she has a sore throat as well as old upper respiratory symptoms like a cough and stuffy nose. Denies any shortness of breath, chest pain, abdominal pain, nausea, vomiting. When I asked, she she denies chest pain despite what the triage note says. She presents for reevaluation while her is currently here in the department as well. She denies any history of blood clots. She is tolerant by mouth intake. She has no other acute complaints at this time. She was not vaccinated for COVID-19, but if she qualifies would like to monoclonal antibody therapy.I evaluated the patient when she was placed in a room. - Related Data Home Medications Medication Instructions Recorded Confirmed Gabapentin [Neurontin] 400 mg PO BID 02/20/15 08/12/18 LORazepam [Ativan] 1 mg PO DAILY PRN 02/20/15 08/12/18 carBAMazepine [TEGretol] 400 mg PO Q12H 02/20/15 08/12/18 Aspirin EC [Ecotrin Low Dose] 81 mg PO DAILY 12/20/17 08/12/18 Omeprazole 20 mg PO DAILY 04/12/18 08/12/18 Atorvastatin [Lipitor] 80 mg PO HS 08/12/18 08/12/18 Previous Rx's Medication Instructions Recorded Cyclobenzaprine [Flexeril] 10 mg PO TID PRN #15 tab 08/12/18 Ibuprofen [Motrin] 600 mg PO Q8HR PRN #30 tab 08/12/18 Dexamethasone [Decadron] 6 mg PO DAILY 7 Days #7 tablet 08/09/21 Loratadine [Claritin] 5 mg PO DAILY 14 Days #14 tab 08/09/21 Allergies Allergy/AdvReac Type Severity Reaction Status Date / Time morphine Allergy Itching Verified 08/09/21 13:26 Review of Systems ROS Statement: Those systems with pertinent positive or pertinent negative responses have been documented in the HPI. Review of Systems: CONST: Denies fever EYES: Denies blurry vision ENT: Endorses nasal congestion C/V: Denies Chest pain RESP: Denies shortness of breath GI: Denies abdominal pain : Denies dysuria SKIN: Denies rash. MSK: Denies joint pain. NEURO: Denies headache ROS Other: All systems not noted in ROS Statement are negative. Past Medical History Past Medical History: Chest Pain / Angina, GERD/Reflux, Musculoskeletal Disorder Additional Past Medical History / Comment(s): EPILEPSY-LAST SEIZURE APPROX 8 YRS,CHRONIC PAIN TO ABD RADIATING RT HIP AND LEG.-COMES AND G0ES. HAS HAD TR OUBLE SWALLOWING SINCE THE LAST 6 MONTHS History of Any Multi-Drug Resistant Organisms: None Reported Past Surgical History: Appendectomy, Cholecystectomy, Heart Catheterization, Hernia Repair, Hysterectomy, Tubal Ligation Additional Past Surgical History / Comment(s): RT INGUINAL HERNIA SURGERY W/ MESH, LT INGUINAL HERNIA REPAIR, BLADDER SLING,LT BREAST BX,APRIL KNEE ARTHROSCOPY,RT ANKLE ARTHROSCOPY, NERVE REMOVED RT FOOT, esophageal strictures Past Anesthesia/Blood Transfusion Reactions: Previous Problems w/ Anesthesia, Motion Sickness Additional Past Anesthesia/Blood Transfusion Reaction / Comment(s): LOW B/P AND PAIN CONTROL AFTER SURGERY Past Psychological History: Anxiety, Depression Smoking Status: Never smoker Past Alcohol Use History: None Reported Past Drug Use History: None Reported - Past Family History Father Family Medical History: Myocardial Infarction ([place]) Additional Family Medical History / Comment(s): AT AGE 75 WITH [place], ABDOMINAL ANEURYSM,EMPHYSEMA, HEART PROBLEMS Mother Additional Family Medical History / Comment(s): WITH GI BLEED AT AGE 73,ALHEIMER'S DISEASE Brother(s) Family Medical History: Renal Disease Additional Family Medical History / Comment(s): MULTIPLE CONGENITAL SPINA BIFIDA General Exam - General Exam Comments Initial Comments: General: Appears in no acute distress. HEAD: Normal with no signs of head trauma. EYES: PERRLA, EOMI, conjunctiva normal, no discharge. ENT: Hearing grossly intact, normal oropharynx. RESPIRATORY: Clear breath sounds bilaterally. No wheezes, rales, or rhonchi. Not hypoxic. Not in respiratory distress. C/V: Regular rate and rhythm. S1 and S2 auscultated, no edema, peripheral pulses 2+ and intact throughout ABD: Abd is soft, nontender, nondistended EXT: Normal range of motion, no obvious deformity SKIN: No rashes or lesions observed on exposed skin. NEURO: Alert and oriented 4. Limitations: no limitations Course Vital Signs 08/09/21 08/09/21 13:26 16:10 Temperature 99.4 F 99.2 F Pulse Rate 98 93 Respiratory 18 18 Rate Blood Pressure 152/67 135/82 O2 Sat by Pulse 94 L 95 Oximetry Medical Decision Making - Medical Decision Making Patient is a 60-year-old female with confirmed Covid positive test 3 days ago who presents emergency Department for reevaluation, as her is here currently being evaluated. She is open to receiving monoclonal antibody therapy if she qualifies. She otherwise has no other acute complaints other than a mild cough but primarily upper respiratory symptoms such as nasal congestion. She is tolerating by mouth intake. She denies chest pain or shortness breath. Do not believe that laboratory studies or imaging are required at this time. We know she is COVID Positive and is otherwise stable. She is not hypoxic or in respiratory distress. Unfortunately, the patient does not meet any criteria for monoclonal antibody therapy and I discussed this with her. She was in understanding. I did offer her a dose of steroids and a prescription which she accepted. She'll also receive a prescription for Claritin. I believe it is safe for her to be discharged home at this time and she was in agreement with the plan. Patient also requested doses of her home medications as he missed them, and she will be provided with them. These include Tegretol, vitamin D, as well as Neurontin. I will provide the patient with a prescription for decadron, claritin. I instructed the patient to follow up with their PCP in the next 3 days. . I explained that the patient should return to the emergency department if they experience any worsening symptoms. Strict return precautions were discussed with the patient. The patient expressed understanding of these instructions. I answered all questions that the patient had. The patient was discharged home in good condition with their prescriptions and follow up information. Disposition Clinical Impression: COVID-19 virus infection Disposition: HOME SELF-CARE Condition: Good Instructions (If sedation given, give patient instructions): Coronavirus Disease 2019 (COVID-19) Prescriptions: Loratadine [Claritin] 5 mg PO DAILY 14 Days #14 tab Dexamethasone [Decadron] 6 mg PO DAILY 7 Days #7 tablet Is patient prescribed a controlled substance at d/c from ED?: No Referrals: Yasir Hood MD [Primary Care Provider] - 1-2 days
[2021-08-09 16:11] VITALS: BP 135/82; PULSE 93; TEMP 99.2
== END 2021-08-09 16:18 | disposition home or self-care (01) ==
LOC: EC 13:06
DX: U07.1 COVID-19 (principal); K21.9 Gastro-esophageal reflux disease without esophagitis; I25.2 Old myocardial infarction; Z79.891 Long term (current) use of opiate analgesic; Z79.899 Other long term (current) drug therapy; Z79.82 Long term (current) use of aspirin; Z79.83 Long term (current) use of bisphosphonates; Z79.02 Long term (current) use of antithrombotics/antiplatelets; Z88.6 Allergy status to analgesic agent
CPT/HCPCS: 99283; J8540

== ENCOUNTER 2021-08-11 01:44 | Inpatient (IN) | payer MEDICARE ==
[2021-08-11] MEDS ORDERED: ACETAMINOPHEN TAB 325 MG TAB PO STA (02:02)
--- NOTE | 2021-08-11 02:31 | XR ---
EXAMINATION TYPE: XR chest 2V DATE OF EXAM: 08/11/2021 COMPARISON: 07/08/2018 HISTORY: Cough and nausea TECHNIQUE: FINDINGS: There is some patchy infiltrate in the mid and lower lung borja. There is poor inspiration . Heart size is normal. IMPRESSION: Bilateral patchy pulmonary infiltrates appear new compared to old exam. No heart failure.
[2021-08-11 03:12] LABS: ALT 75 U/L (4-34); AST 89 U/L (14-36); African American GFR (CKD) >90 (>60 ml/min/1.73 sqM); Albumin 3.6 g/dL (3.5-5.0); Alkaline Phosphatase 79 U/L (38-126); Anion Gap 9 mmol/L; Blood Urea Nitrogen 13 mg/dL (7-17); Calcium 8.6 mg/dL (8.4-10.2); Carbon Dioxide 22 mmol/L (22-30); Chloride 109 mmol/L (98-107); Glucose 105 mg/dL (74-99); Non-African American GFR(CKD) >90 (>60 ml/min/1.73 sqM); Potassium 3.7 mmol/L (3.5-5.1); Sodium 140 mmol/L (137-145); Total Bilirubin 0.4 mg/dL (0.2-1.3); Total Protein 6.3 g/dL (6.3-8.2)
[2021-08-11] MEDS ORDERED: DEXAMETHASONE SOD PHOSPHATE 10 MG/ML 1 ML VIAL IVP STA (03:25)
[2021-08-11 03:59] LABS: Basophils % (A) 0 %; Eosinophils % (A) 1 %; HCT 37.1 % (34.0-46.0); HGB 12.7 gm/dL (11.4-16.0); Lymphocytes # (A) 0.8 k/uL (1.0-4.8); Lymphocytes % (A) 13 %; MCH 32.8 pg (25.0-35.0); MCHC 34.4 g/dL (31.0-37.0); MCV 95.4 fL (80.0-100.0); Mean Platelet Volume 7.5; Monocytes # (A) 0.3 k/uL (0-1.0); Monocytes % (A) 4 %; Neutrophils # (A) 5.1 k/uL (1.3-7.7); Neutrophils % (A) 80 %; Platelet Count 337 k/uL (150-450); RBC 3.88 m/uL (3.80-5.40); WBC 6.4 k/uL (3.8-10.6)
[2021-08-11] MEDS ORDERED: DOCUSATE 100 MG CAP PO PRN (04:07)
[2021-08-11] MEDS ORDERED: IBUPROFEN 400 MG TAB PO PRN (04:07)
[2021-08-11] MEDS ORDERED: NALOXONE 0.4 MG/ML 1 ML VIAL IV PRN (04:07)
[2021-08-11] MEDS ORDERED: ONDANSETRON 4 MG/2 ML VIAL IVP PRN (04:07)
[2021-08-11] MEDS ORDERED: MAG HYDROX/AL HYDROX/SIMETH 30 ML CUP PO PRN (04:07)
[2021-08-11] MEDS: DEXAMETHASONE SOD PHOSPHATE 10 MG/ML 1 ML VIAL IVP SCH ×2 (04:57→16:37)
[2021-08-11] MEDS: SODIUM CHLORIDE 0.9% 1,000 ML IV SCH ×2 (04:57→21:37)
[2021-08-11] MEDS: carBAMazepine 200 MG TAB PO SCH ×2 (05:04→21:50)
[2021-08-11] MEDS: ASPIRIN 81 MG PO SCH (07:45)
[2021-08-11] MEDS: ENOXAPARIN 40 MG/0.4 ML SYRINGE SQ SCH (07:45)
[2021-08-11] MEDS: CHOLECALCIFEROL 125 MCG (5000 IU) TABLET PO SCH (07:45)
[2021-08-11] MEDS: FAMOTIDINE 20 MG TAB PO SCH ×2 (07:45→21:35)
[2021-08-11] MEDS: GABAPENTIN 400 MG CAP PO SCH ×2 (07:45→21:35)
--- NOTE | 2021-08-11 07:59 | ED ---
SOB HPI - General Chief Complaint: Shortness of Breath Stated Complaint: Covid+,Dehydration Time Seen by Provider: 08/11/21 01:54 Source: patient Mode of arrival: EMS - History of Present Illness MD Complaint: shortness of breath, cough -: days(s) Consistency: constant Improves With: nothing Worsens With: nothing Context: recent URI Associated Symptoms: fever, cough Treatments Prior to Arrival: none - Related Data Home Oxygen Therapy: No Home Medications Medication Instructions Recorded Confirmed Gabapentin [Neurontin] 400 mg PO BID 02/20/15 08/11/21 carBAMazepine [TEGretol] 400 mg PO Q12H 02/20/15 08/11/21 Aspirin EC [Ecotrin Low Dose] 81 mg PO DAILY 12/20/17 08/11/21 Acetaminophen Tab [Tylenol Tab] 1,000 mg PO Q6HR PRN 08/11/21 08/11/21 Cholecalciferol [Vitamin D3 (25 50 mcg PO DAILY 08/11/21 08/11/21 Mcg = 1000 Iu)] LORazepam 0.5 mg PO BID PRN 08/11/21 08/11/21 Loratadine [Claritin] 10 mg PO DAILY 08/11/21 08/11/21 Rosuvastatin Calcium 20 mg PO HS 08/11/21 08/11/21 hydrOXYzine HCL 10 mg PO HS 08/11/21 08/11/21 Previous Rx's Medication Instructions Recorded Dexamethasone [Decadron] 6 mg PO DAILY 7 Days #7 tablet 08/09/21 Allergies Allergy/AdvReac Type Severity Reaction Status Date / Time morphine Allergy Itching Verified 08/11/21 06:37 Review of Systems ROS Statement: Those systems with pertinent positive or pertinent negative responses have been documented in the HPI. ROS Other: All systems not noted in ROS Statement are negative. Constitutional: Reports: fever, chills, weakness ENT: Reports: congestion Respiratory: Reports: cough, dyspnea. Denies: hemoptysis Cardiovascular: Denies: chest pain, palpitations, edema, syncope Gastrointestinal: Denies: abdominal pain, vomiting, diarrhea Genitourinary: Denies: dysuria, hematuria Skin: Denies: rash Neurological: Denies: headache, weakness, numbness Past Medical History Past Medical History: Chest Pain / Angina, GERD/Reflux, Musculoskeletal Disorder Additional Past Medical History / Comment(s): EPILEPSY-LAST SEIZURE APPROX 8 YRS,CHRONIC PAIN TO ABD RADIATING RT HIP AND LEG.-COMES AND G0ES. HAS HAD TROUBLE SWALLOWING SINCE THE LAST 6 MONTHS History of Any Multi-Drug Resistant Organisms: None Reported Past Surgical History: Appendectomy, Cholecystectomy, Heart Catheterization, Hernia Repair, Hysterectomy, Tubal Ligation Additional Past Surgical History / Comment(s): RT INGUINAL HERNIA SURGERY W/ MESH, LT INGUINAL HERNIA REPAIR, BLADDER SLING,LT BREAST BX,APRIL KNEE ARTH ROSCOPY,RT ANKLE ARTHROSCOPY, NERVE REMOVED RT FOOT, esophageal strictures Past Anesthesia/Blood Transfusion Reactions: Previous Problems w/ Anesthesia, Motion Sickness Additional Past Anesthesia/Blood Transfusion Reaction / Comment(s): LOW B/P AND PAIN CONTROL AFTER SURGERY Past Psychological History: Anxiety, Depression Smoking Status: Never smoker Past Alcohol Use History: None Reported Past Drug Use History: None Reported - Past Family History Father Family Medical History: Myocardial Infarction ([place]) Additional Family Medical History / Comment(s): AT AGE 75 WITH [place], ABDOMINAL ANEURYSM,EMPHYSEMA, HEART PROBLEMS Mother Additional Family Medical History / Comment(s): WITH GI BLEED AT AGE 73,ALHEIMER'S DISEASE Brother(s) Family Medical History: Renal Disease Additional Family Medical History / Comment(s): MULTIPLE CONGENITAL SPINA BIFIDA General Exam General appearance: alert, in no apparent distress Head exam: Present: atraumatic, normocephalic Eye exam: Present: normal appearance. Absent: scleral icterus, conjunctival injection ENT exam: Present: normal oropharynx Neck exam: Present: normal inspection Respiratory exam: Present: normal lung sounds bilaterally, rales. Absent: respiratory distress, wheezes, rhonchi, stridor Cardiovascular Exam: Present: regular rate, normal rhythm, normal heart sounds. Absent: systolic murmur, diastolic murmur, rubs, gallop GI/Abdominal exam: Present: soft. Absent: distended, tenderness, guarding, rebound, rigid, mass Extremities exam: Present: normal inspection, normal capillary refill. Absent: pedal edema, calf tenderness Back exam: Present: normal inspection. Absent: CVA tenderness (R), CVA tenderness (L) Neurological exam: Present: alert Skin exam: Present: warm, dry, intact, normal color. Absent: rash Course Vital Signs 08/11/21 08/11/21 08/11/21 01:49 02:03 02:47 Temperature 100.2 F H Pulse Rate 91 94 Respiratory 20 20 22 Rate Blood Pressure 130/71 130/71 O2 Sat by Pulse 94 L 92 L Oximetry 08/11/21 08/11/21 08/11/21 03:47 05:00 07:15 Temperature 99.6 F Pulse Rate 88 89 Respiratory 20 18 Rate Blood Pressure 112/63 133/76 O2 Sat by Pulse 88 L 93 L 92 L Oximetry 08/11/21 07:35 Temperature Pulse Rate Respiratory 18 Rate Blood Pressure O2 Sat by Pulse Oximetry Medical Decision Making - Medical Decision Making Patient is 60-year-old woman who returns for reevaluation approximately 12 days and to COVID-19 infection. She has some shortness of breath. Patient is displaying some mild hypoxemia with O2 sats down to 88% on room air. We'll admit for dexamethasone and other treatment. - Lab Data Result diagrams: 08/11/21 03:42 08/11/21 02:47 Lab Results 08/11/21 08/11/21 08/11/21 Range/Units 02:47 02:47 03:42 WBC 6.4 (3.8-10.6) k/uL RBC 3.88 (3.80-5.40) m/uL Hgb 12.7 (11.4-16.0) gm/dL Hct 37.1 (34.0-46.0) % MCV 95.4 (80.0-100.0) fL MCH 32.8 (25.0-35.0) pg MCHC 34.4 (31.0-37.0) g/dL RDW 12.0 (11.5-15.5) % Plt Count 337 (150-450) k/uL MPV 7.5 Neutrophils % 80 % Lymphocytes % 13 % Monocytes % 4 % Eosinophils % 1 % Basophils % 0 % Neutrophils # 5.1 (1.3-7.7) k/uL Lymphocytes # 0.8 L (1.0-4.8) k/uL Monocytes # 0.3 (0-1.0) k/uL Eosinophils # 0.0 (0-0.7) k/uL Basophils # 0.0 (0-0.2) k/uL D-Dimer 0.40 (<0.60) mg/L FEU Sodium 140 (137-145) mmol/L Potassium 3.7 (3.5-5.1) mmol/L Chloride 109 H (98-107) mmol/L Carbon Dioxide 22 (22-30) mmol/L Anion Gap 9 mmol/L BUN 13 (7-17) mg/dL Creatinine 0.66 (0.52-1.04) mg/dL Est GFR (CKD-EPI)AfAm >90 (>60 ml/min/1.73 sqM) Est GFR (CKD-EPI)NonAf >90 (>60 ml/min/1.73 sqM) Glucose 105 H (74-99) mg/dL Calcium 8.6 (8.4-10.2) mg/dL Total Bilirubin 0.4 (0.2-1.3) mg/dL AST 89 H (14-36) U/L ALT 75 H (4-34) U/L Alkaline Phosphatase 79 (38-126) U/L Total Protein 6.3 (6.3-8.2) g/dL Albumin 3.6 (3.5-5.0) g/dL Disposition Clinical Impression: COVID-19 Disposition: ADMITTED IP TO THIS HOSP Condition: Fair Is patient prescribed a controlled substance at d/c from ED?: No
[2021-08-11] MEDS ORDERED: CYCLOBENZAPRINE 10 MG TAB PO PRN (09:00)
--- NOTE | 2021-08-11 11:59 | P.CNPUL ---
History of Present Illness Consult date: 08/11/21 Requesting physician: Ja Cruz Reason for consult: dyspnea, cough Chief complaint: Shortness of breath, COVID-19, dehydration History of present illness: 60-year-old white female patient who follows Dr. Hood for primary care services came into the emergency department on 08/11/2021 with complaints of shortness of breath, cough and onset of symptoms was on on 08/01/2021. She tested positive for COVID-19 on 08/03/2021, she is a non- vaccinated adult against COVID-19. She does report fever. Past history significant for epilepsy, GERD, never smoker, anxiety, depression. Chest x-ray shows bilateral patchy pulmonary infiltrates, no heart failure. Lab work showed white count of 6.4, hemoglobin 12.7, lymphocyte count 0.8, d-dimer 0.40, sodium is 140, potassium is 3.7, chloride was 109, CO2 is 22, BUN is 13, creatinine 0.6, AST was 89, ALT was 75, alkaline phosphatase is 79. Patient is currently on 2 L of oxygen pulse ox is 93%, she is having low-grade fevers while in the emergency department with a temp of 99.6F, blood pressure stable. She was started on Decadron 6 program twice daily, she is on Lovenox 40 mg daily, she is on IV fluids with 0.9 with a net 75 ML per hour, seems fairly comfortable, does not appear to be in any acute distress. Review of Systems All systems: negative Constitutional: Denies chills, Denies fever Eyes: denies blurred vision, denies pain Ears, nose, mouth and throat: Denies headache, Denies sore throat Cardiovascular: Denies chest pain, Denies shortness of breath Respiratory: Reports dyspnea, Denies cough Gastrointestinal: Denies abdominal pain, Denies diarrhea, Denies nausea, Denies vomiting Genitourinary: Denies dysuria, Denies hematuria Musculoskeletal: Denies myalgias Integumentary: Denies pruritus, Denies rash Neurological: Denies numbness, Denies weakness Psychiatric: Denies anxiety, Denies depression Endocrine: Denies fatigue, Denies weight change Past Medical History Past Medical History: Chest Pain / Angina, GERD/Reflux, Musculoskeletal Disorder Additional Past Medical History / Comment(s): EPILEPSY-LAST SEIZURE APPROX 8 YRS,CHRONIC PAIN TO ABD RADIATING RT HIP AND LEG.-COMES AND G0ES. HAS HAD TRO UBLE SWALLOWING SINCE THE LAST 6 MONTHS History of Any Multi-Drug Resistant Organisms: None Reported Past Surgical History: Appendectomy, Cholecystectomy, Heart Catheterization, Hernia Repair, Hysterectomy, Tubal Ligation Additional Past Surgical History / Comment(s): RT INGUINAL HERNIA SURGERY W/ MESH, LT INGUINAL HERNIA REPAIR, BLADDER SLING,LT BREAST BX,APRIL KNEE ARTHROSCOPY,RT ANKLE ARTHROSCOPY, NERVE REMOVED RT FOOT, esophageal strictures Past Anesthesia/Blood Transfusion Reactions: Previous Problems w/ Anesthesia, Motion Sickness Additional Past Anesthesia/Blood Transfusion Reaction / Comment(s): LOW B/P AND PAIN CONTROL AFTER SURGERY Past Psychological History: Anxiety, Depression Smoking Status: Never smoker Past Alcohol Use History: None Reported Past Drug Use History: None Reported - Past Family History Father Family Medical History: Myocardial Infarction ([place]) Additional Family Medical History / Comment(s): AT AGE 75 WITH [place], ABDOMINAL ANEURYSM,EMPHYSEMA, HEART PROBLEMS Mother Additional Family Medical History / Comment(s): WITH GI BLEED AT AGE 73,ALHEIMER'S DISEASE Brother(s) Family Medical History: Renal Disease Additional Family Medical History / Comment(s): MULTIPLE CONGENITAL SPINA BIFIDA Medications and Allergies Home Medications Medication Instructions Recorded Confirmed Type Gabapentin [Neurontin] 400 mg PO BID 02/20/15 08/11/21 History carBAMazepine [TEGretol] 400 mg PO Q12H 02/20/15 08/11/21 History Aspirin EC [Ecotrin Low Dose] 81 mg PO DAILY 12/20/17 08/11/21 History Dexamethasone [Decadron] 6 mg PO DAILY 7 Days #7 tablet 08/09/21 08/11/21 Rx Acetaminophen Tab [Tylenol Tab] 1,000 mg PO Q6HR PRN 08/11/21 08/11/21 History Cholecalciferol [Vitamin D3 (25 50 mcg PO DAILY 08/11/21 08/11/21 History Mcg = 1000 Iu)] LORazepam 0.5 mg PO BID PRN 08/11/21 08/11/21 History Loratadine [Claritin] 10 mg PO DAILY 08/11/21 08/11/21 History Rosuvastatin Calcium 20 mg PO HS 08/11/21 08/11/21 History hydrOXYzine HCL 10 mg PO HS 08/11/21 08/11/21 History Allergies Allergy/AdvReac Type Severity Reaction Status Date / Time morphine Allergy Itching Verified 08/11/21 06:37 Physical Exam Vitals: Vital Signs Temp Pulse Resp BP Pulse Ox 08/11/21 11:40 99.2 F 83 16 120/74 93 L 08/11/21 07:35 18 08/11/21 07:15 99.6 F 89 18 133/76 92 L 08/11/21 05:00 88 20 112/63 93 L 08/11/21 03:47 88 L 08/11/21 02:47 94 22 130/71 92 L 08/11/21 02:03 20 08/11/21 01:49 100.2 F H 91 20 130/71 94 L Intake and Output 08/10/21 08/11/21 08/11/21 22:59 06:59 14:59 Other: Weight 94.347 kg GENERAL EXAM: Alert, very pleasant, 60-year-old white female, on 2 L of oxygen and the pulse ox of 93% resting on the gurney, in the emergency department, awaiting a bed on the floor comfortable in no apparent distress. HEAD: Normocephalic/atraumatic. EYES: Normal reaction of pupils, equal size. Conjunctiva pink, sclera white. NOSE: Clear with pink turbinates. THROAT: No erythema or exudates. NECK: No masses, no JVD, no thyroid enlargement, no adenopathy. CHEST: No chest wall deformity. Symmetrical expansion. LUNGS: Equal air entry with bilateral crackles CVS: Regular rate and rhythm, normal S1 and S2, no gallops, no murmurs, no rubs ABDOMEN: Soft, nontender. No hepatosplenomegaly, normal bowel sounds, no guarding or rigidity. EXTREMITIES: No clubbing, no edema, no cyanosis, 2+ pulses and upper and lower extremities. MUSCULOSKELETAL: Muscle strength and tone normal. SPINE: No scoliosis or deformity SKIN: No rashes CENTRAL NERVOUS SYSTEM: Alert and oriented -3. No focal deficits, tone is nor mal in all 4 extremities. PSYCHIATRIC: Alert and oriented -3. Appropriate affect. Intact judgment and insight. Results - Laboratory Findings CBC and BMP: 08/11/21 03:42 08/11/21 02:47 PT/INR, D-dimer D-Dimer 0.40 mg/L FEU (<0.60) 08/11/21 02:47 Abnormal lab findings: Abnormal Labs 08/11/21 08/11/21 02:47 03:42 Lymphocytes # 0.8 L Chloride 109 H Glucose 105 H AST 89 H ALT 75 H - Diagnostic Findings Chest x-ray: report reviewed, image reviewed Assessment and Plan Plan: Assessment: #1. Acute hypoxic respiratory failure related to acute COVID-19 related pneumonia, patient presented to the emergency department on 08/11/2021, with onset of symptoms on 08/01/2021, tested positive on 08/03/2021, nonvaccinated against COVID-19. Outside the window for Remdesivir, will be treated with Decadron, Lovenox and multivitamins #2. History of epilepsy #3. History of esophageal strictures with history of dysphagia #4. GERD #5. Anxiety #6. Nonsmoker Plan: Continue Decadron Continue Lovenox We will obtain follow-up d-dimer and inflammatory markers Breathing fairly comfortably right now, remains on 2 L of oxygen Monitor for worsening dyspnea and hypoxia Patient is outside the window for Remdesivir We'll continue to follow I performed a history & physical examination of the patient and discussed their management with my nurse practitioner, Trina Albrecht. I reviewed the nurse practitioner's note and agree with the documented findings and plan of care. Lung sounds are positive for dim breath sounds throughout the lung borja. The findings and the impression was discussed with the patient. I attest to the documentation by the nurse practitioner. Time with Patient: Greater than 30
[2021-08-11] MEDS: ACETAMINOPHEN TAB 325 MG TAB PO PRN ×2 (14:28→21:35)
[2021-08-11] MEDS: LORazepam 1 MG TAB PO PRN (16:37)
[2021-08-11] MEDS: ATORVASTATIN 80 MG TAB PO SCH (21:35)
--- NOTE | 2021-08-11 21:57 | P.HPIM ---
History of Present Illness H&P Date: 08/11/21 Chief Complaint: Shortness of breath Patient is a 60-year-old female with a known history of GERD, epilepsy, anxiety/depression previous history of cardiac catheterization presents to ER with complaints of cough congestion and shortness of breath. Patient states that she started having symptoms on 08/01/2021 and came to ER on 08/03/2021 and tested positive for COVID-19 infection. Patient has been having fevers at home. Also started diarrhea yesterday. On admission T-max 100.2 and pulse ox 88% on room air. Chest x-ray showed bilateral patchy pulmonary infiltrates appear new compared to old exam. No heart failure. Laboratory data showed WBC 6.4 hemoglobin 12.7 and platelets 337 lymphocytes 0.8 sodium 140 potassium 3.7 chloride 109 bicarb is 22 BUN 39 creatinine 0.66 blood sugar is 105 AST 89 ALT 75 alk phos 79 Review of Systems Constitutional: Subjective fevers and chills. Generalized weakness and tiredness.. Abdomen: Does have nausea no episodes of vomiting. No abdominal pain. Did have diarrhea.. Cardiovascular: Patient denies any chest pain. + short of breath no palpitations. Respiratory: Patient does have cough congestion and shortness of breath. Neurologic: Patient denied any numbness or tingling headache. Musculoskeletal: Patient denies any complaints of joint swelling or deformity. Skin: Negative Psychiatric: Negative Endocrine: No heat or cold intolerance. No recent weight gain. Genitourinary: No dysuria or hematuria. All other 14 point ROS negative except the above Past Medical History Past Medical History: Chest Pain / Angina, GERD/Reflux, Musculoskeletal Disorder Additional Past Medical History / Comment(s): EPILEPSY-LAST SEIZURE APPROX 8 YRS,CHRONIC PAIN TO ABD RADIATING RT HIP AND LEG.-COMES AND G0ES. HAS HAD TROUBLE SWALLOWING SINCE THE LAST 6 MONTHS History of Any Multi-Drug Resistant Organisms: None Reported Past Surgical History: Appendectomy, Cholecystectomy, Heart Catheterization, Hernia Repair, Hysterectomy, Tubal Ligation Additional Past Surgical History / Comment(s): RT INGUINAL HERNIA SURGERY W/ MESH, LT INGUINAL HERNIA REPAIR, BLADDER SLING,LT BREAST BX,APRIL KNEE ARTHROSCOPY,RT ANKLE ARTHROSCOPY, NERVE REMOVED RT FOOT, esophageal strictures Past Anesthesia/Blood Transfusion Reactions: Previous Problems w/ Anesthesia, Motion Sickness Additional Past Anesthesia/Blood Transfusion Reaction / Comment(s): LOW B/P AND PAIN CONTROL AFTER SURGERY Past Psychological History: Anxiety, Depression Smoking Status: Never smoker Past Alcohol Use History: None Reported Past Drug Use History: None Reported - Past Family History Father Family Medical History: Myocardial Infarction ([place]) Additional Family Medical History / Comment(s): AT AGE 75 WITH [place], ABDOMINAL ANEURYSM,EMPHYSEMA, HEART PROBLEMS Mother Additional Family Medical History / Comment(s): WITH GI BLEED AT AGE 73,ALHEIMER'S DISEASE Brother(s) Family Medical History: Renal Disease Additional Family Medical History / Comment(s): MULTIPLE CONGENITAL SPINA BIFIDA Medications and Allergies Home Medications Medication Instructions Recorded Confirmed Type Gabapentin [Neurontin] 400 mg PO BID 02/20/15 08/11/21 History carBAMazepine [TEGretol] 400 mg PO Q12H 02/20/15 08/11/21 History Aspirin EC [Ecotrin Low Dose] 81 mg PO DAILY 12/20/17 08/11/21 History Dexamethasone [Decadron] 6 mg PO DAILY 7 Days #7 tablet 08/09/21 08/11/21 Rx Acetaminophen Tab [Tylenol Tab] 1,000 mg PO Q6HR PRN 08/11/21 08/11/21 History Cholecalciferol [Vitamin D3 (25 50 mcg PO DAILY 08/11/21 08/11/21 History Mcg = 1000 Iu)] LORazepam 0.5 mg PO BID PRN 08/11/21 08/11/21 History Loratadine [Claritin] 10 mg PO DAILY 08/11/21 08/11/21 History Rosuvastatin Calcium 20 mg PO HS 08/11/21 08/11/21 History hydrOXYzine HCL 10 mg PO HS 08/11/21 08/11/21 History Allergies Allergy/AdvReac Type Severity Reaction Status Date / Time morphine Allergy Itching Verified 08/11/21 06:37 Physical Exam Vitals: Vital Signs Temp Pulse Resp BP Pulse Ox 08/11/21 07:35 18 08/11/21 07:15 99.6 F 89 18 133/76 92 L 08/11/21 05:00 88 20 112/63 93 L 08/11/21 03:47 88 L 08/11/21 02:47 94 22 130/71 92 L 08/11/21 02:03 20 08/11/21 01:49 100.2 F H 91 20 130/71 94 L Intake and Output 08/10/21 08/11/21 08/11/21 22:59 06:59 14:59 Other: Weight 94.347 kg PHYSICAL EXAMINATION: Patient is lying in the bed comfortably, no acute distress, awake alert and oriented.. HEENT: Normocephalic. Neck is supple. Pupils reactive. Nostrils clear. Oral cavity is moist. Neck reveals no JVD, carotid bruits, or thyromegaly. CHEST EXAMINATION: Trachea is central. Symmetrical expansion. Bilateral scattered coarse sounds. Nonlabored breathing.. CARDIAC: Normal S1, S2 with no gallops. No murmurs ABDOMEN: Soft. Bowel sounds normal. No organomegaly. No abdominal bruits. Extremities: reveal no edema. No clubbing or cyanosis Neurologically awake, alert, oriented x3 with well-coordinated movements. No focal deficits noted Skin: No rash or skin lesions. Psychiatric: Cooperative. Nonsuicidal Musculoskeletal: No joint swelling or deformity. Normal range of motion. Results CBC & Chem 7: 08/11/21 03:42 08/11/21 02:47 Labs: Abnormal Lab Results - Last 24 Hours (Table) 08/11/21 08/11/21 Range/Units 02:47 03:42 Lymphocytes # 0.8 L (1.0-4.8) k/uL Chloride 109 H (98-107) mmol/L Glucose 105 H (74-99) mg/dL AST 89 H (14-36) U/L ALT 75 H (4-34) U/L Thrombosis Risk Factor Assmnt - DVT/VTE Prophylaxis DVT/VTE Prophylaxis: Pharmacologic Prophylaxis ordered Assessment and Plan Assessment: Acute hypoxic respiratory failure secondary to COVID-19 infection. Acute COVID- 19 pneumonia. Patient was tested positive on 08/03/2021. Symptoms since 07/31/2021. Not vaccinated. GERD Anxiety History of esophageal stricture and dysphagia. History of epilepsy DVT prophylaxis Lovenox subcu Plan: Patient with cannula oxygen supplementation. Currently on 3 L via nasal cannula. Continue with dexamethasone 6 mg daily and Lovenox subcu and multivitamin supplementation. Patient is out of window for remdesivir therapy. Pulmonary is on board. Continue with gentle IV hydration and follow closely. Time with Patient: Greater than 30
[2021-08-12] MEDS: DEXAMETHASONE SOD PHOSPHATE 10 MG/ML 1 ML VIAL IVP SCH ×2 (03:32→16:31)
[2021-08-12] MEDS: SODIUM CHLORIDE 0.9% 1,000 ML IV SCH ×2 (06:27→19:39)
[2021-08-12] MEDS: CHOLECALCIFEROL 125 MCG (5000 IU) TABLET PO SCH (08:47)
[2021-08-12] MEDS: GABAPENTIN 400 MG CAP PO SCH ×2 (08:47→19:38)
[2021-08-12] MEDS: ASPIRIN 81 MG PO SCH (08:47)
[2021-08-12] MEDS: carBAMazepine 200 MG TAB PO SCH ×2 (08:47→19:38)
[2021-08-12] MEDS: FAMOTIDINE 20 MG TAB PO SCH ×2 (08:47→19:38)
[2021-08-12] MEDS: ENOXAPARIN 40 MG/0.4 ML SYRINGE SQ SCH (08:48)
[2021-08-12 11:46] LABS: C Reactive Protein 5.9 mg/dL (<1.0)
[2021-08-12 13:18] VITALS: BMI 31.6
[2021-08-12] MEDS: LORazepam 1 MG TAB PO PRN (16:31)
[2021-08-12] MEDS: ACETAMINOPHEN TAB 325 MG TAB PO PRN (16:35)
--- NOTE | 2021-08-12 16:50 | P.PN ---
Subjective Progress Note Date: 08/12/21 Principal diagnosis: COVID-19 pneumonia 60-year-old white female patient who follows Dr. Hood for primary care services came into the emergency department on 08/11/2021 with complaints of shortness of breath, cough and onset of symptoms was on on 08/01/2021. She tested positive for COVID-19 on 08/03/2021, she is a non-vaccinated adult against COVID-19. She does report fever. Past history significant for epilepsy, GERD, never smoker, anxiety, depression. Chest x-ray shows bilateral patchy pulmonary infiltrates, no heart failure. Lab work showed white count of 6.4, hemoglobin 12.7, lymphocyte count 0.8, d-dimer 0.40, sodium is 140, potassium is 3.7, chloride was 109, CO2 is 22, BUN is 13, creatinine 0.6, AST was 89, ALT was 75, alkaline phosphatase is 79. Patient is currently on 2 L of oxygen pulse ox is 93%, she is having low-grade fevers while in the emergency department with a temp of 99.6F, blood pressure stable. She was started on Decadron 6 program twice daily, she is on Lovenox 40 mg daily, she is on IV fluids with 0.9 with a net 75 ML per hour, seems fairly comfortable, does not appear to be in any acute distress. The patient is seen today 08/12/2021 in follow-up on the regular medical floor. She is currently sitting up in bed. Awake and alert in no acute distress. Breathing easier today compared to yesterday. Continues with a dry nonproductive cough. She is maintaining O2 saturations in the low 90s on 3 L/m per nasal cannula. She's been afebrile. Hemodynamically stable. White count 6.4. Hemoglobin 12.7. Lymphocytes 0.8. D-dimer 0.44. LDH 859. C-reactive protein 5.9. She is continued on Decadron, Lovenox, vitamin supplements. Objective - Vital Signs Vital signs: Vital Signs Temp 99.1 F 08/12/21 14:42 Pulse 86 08/12/21 14:42 Resp 17 08/12/21 09:15 BP 127/78 08/12/21 14:42 Pulse Ox 92 L 08/12/21 14:42 Intake & Output 08/11/21 08/12/21 08/12/21 18:59 06:59 18:59 Intake Total 118 Balance 118 Weight 94.347 kg 94.347 kg Intake: Oral 118 Other: # Voids 2 1 - Exam GENERAL EXAM: Alert, very pleasant, 60-year-old female, on 3 L of oxygen and the pulse ox of 92% resting in bed, comfortable in no apparent distress. HEAD: Normocephalic/atraumatic. EYES: Normal reaction of pupils, equal size. Conjunctiva pink, sclera white. NOSE: Clear with pink turbinates. THROAT: No erythema or exudates. NECK: No masses, no JVD, no thyroid enlargement, no adenopathy. CHEST: No chest wall deformity. Symmetrical expansion. LUNGS: Equal air entry with bilateral crackles CVS: Regular rate and rhythm, normal S1 and S2, no gallops, no murmurs, no rubs ABDOMEN: Soft, nontender. No hepatosplenomegaly, normal bowel sounds, no guarding or rigidity. EXTREMITIES: No clubbing, no edema, no cyanosis, 2+ pulses and upper and lower extremities. MUSCULOSKELETAL: Muscle strength and tone normal. SPINE: No scoliosis or deformity SKIN: No rashes CENTRAL NERVOUS SYSTEM: Alert and oriented -3. No focal deficits, tone is normal in all 4 extremities. PSYCHIATRIC: Alert and oriented -3. Appropriate affect. Intact judgment and insight. - Labs CBC & Chem 7: 08/11/21 03:42 08/11/21 02:47 Labs: Abnormal Lab Results - Last 24 Hours (Table) 08/12/21 Range/Units 07:53 Lactate Dehydrogenase 859 H (313-618) U/L C-Reactive Protein 5.9 H (<1.0) mg/dL Assessment and Plan Assessment: 1 Acute hypoxic respiratory failure related to acute COVID-19 related pneumonia, patient presented to the emergency department on 08/11/2021, with on set of symptoms on 08/01/2021, tested positive on 08/03/2021, nonvaccinated against COVID-19. Outside the window for Remdesivir, will be treated with Decadron, Lovenox and multivitamins 2 History of epilepsy 3 History of esophageal strictures with history of dysphagia 4 GERD 5 Anxiety 6 Nonsmoker Plan: The patient was seen and evaluated Currently on 3 L nasal cannula Titrate the FiO2 as tolerated Continue Decadron, Lovenox, vitamin supplements Follow-up chest x-ray and labs in the a.m. We will continue to follow I, the cosigning physician, performed a history & physical examination of the patient. Lungs sounds posterior crackles in the bilateral bases Maintaining O2 saturations in the 90s on 3 L/m per nasal cannula. I discussed the assessment and plan of care with my nurse practitioner, Violeta Kimbrough. I attest to the above note as dictated by her.
[2021-08-12] MEDS: ATORVASTATIN 80 MG TAB PO SCH (19:38)
[2021-08-13] MEDS: DEXAMETHASONE SOD PHOSPHATE 10 MG/ML 1 ML VIAL IVP SCH ×2 (04:48→16:43)
[2021-08-13 04:51] VITALS: RESP 18
[2021-08-13 07:18] LABS: Basophils % (A) 0 %; Eosinophils % (A) 1 %; HCT 41.9 % (34.0-46.0); HGB 13.9 gm/dL (11.4-16.0); Lymphocytes # (A) 0.8 k/uL (1.0-4.8); Lymphocytes % (A) 9 %; MCH 32.8 pg (25.0-35.0); MCHC 33.2 g/dL (31.0-37.0); MCV 98.6 fL (80.0-100.0); Mean Platelet Volume 7.5; Monocytes # (A) 0.3 k/uL (0-1.0); Monocytes % (A) 4 %; Neutrophils # (A) 7.4 k/uL (1.3-7.7); Neutrophils % (A) 84 %; Platelet Count 475 k/uL (150-450); RBC 4.25 m/uL (3.80-5.40); WBC 8.8 k/uL (3.8-10.6)
[2021-08-13 07:30] LABS: African American GFR (CKD) >90 (>60 ml/min/1.73 sqM); Anion Gap 10 mmol/L; Blood Urea Nitrogen 10 mg/dL (7-17); Calcium 9.4 mg/dL (8.4-10.2); Carbon Dioxide 23 mmol/L (22-30); Chloride 111 mmol/L (98-107); Glucose 114 mg/dL (74-99); LDH 872 U/L (313-618); Non-African American GFR(CKD) >90 (>60 ml/min/1.73 sqM); Potassium 3.8 mmol/L (3.5-5.1); Sodium 144 mmol/L (137-145)
--- NOTE | 2021-08-13 07:33 | XR ---
EXAMINATION TYPE: XR chest 1V portable DATE OF EXAM: 08/13/2021 Comparison: 08/11/2019 Clinical History: 60-year-old female CoVID pneumonia Findings: Heart limits of normal size. Patchy airspace opacity may lower lungs more confluent at the left base. Overall unchanged. Subtle edge noted at the left apex, likely projectional. Attention on follow-up t o exclude a trace pneumothorax. Impression: 1. Similar patchy mid and lower lung bilateral COVID pneumonia. 2. Subtle edge seen at the left apex, suspected projectional. Attention on follow-up to exclude a tra ce pneumothorax.
[2021-08-13] MEDS: FAMOTIDINE 20 MG TAB PO SCH (07:51)
[2021-08-13] MEDS: ASPIRIN 81 MG PO SCH (07:51)
[2021-08-13] MEDS: CHOLECALCIFEROL 125 MCG (5000 IU) TABLET PO SCH (07:51)
[2021-08-13] MEDS: ENOXAPARIN 40 MG/0.4 ML SYRINGE SQ SCH (07:51)
[2021-08-13] MEDS: carBAMazepine 200 MG TAB PO SCH (07:51)
[2021-08-13] MEDS: GABAPENTIN 400 MG CAP PO SCH (07:51)
[2021-08-13 08:08] LABS: C Reactive Protein 5.9 mg/dL (<1.0)
--- NOTE | 2021-08-13 10:58 | P.PN ---
Subjective Progress Note Date: 08/12/21 \ Patient is a 60-year-old female with a known history of GERD, epilepsy, anxiety/depression previous history of cardiac catheterization presents to ER with complaints of cough congestion and shortness of breath. Patient states that she started having symptoms on 08/01/2021 and came to ER on 08/03/2021 and tested positive for COVID-19 infection. Patient has been having fevers at home. Also started diarrhea yesterday. On admission T-max 100.2 and pulse ox 88% on room air. Chest x-ray showed bilateral patchy pulmonary infiltrates appear new compared to old exam. No heart failure. Laboratory data showed WBC 6.4 hemoglobin 12.7 and platelets 337 lymphocytes 0.8 sodium 140 potassium 3.7 chloride 109 bicarb is 22 BUN 39 creatinine 0.66 blood sugar is 105 AST 89 ALT 75 alk phos 79 08/12/2021 Patient is currently resting in the bed. Awake alert and oriented. No acute distress. No complaints of chest pain or worsening shortness of breath. Patient was mild cough. No sputum production. Currently on 3 L oxygen via nasal cannula. Patient has been afebrile. No nausea vomiting or abdominal pain or diarrhea. Laboratory data showed WBC 6.4 hemoglobin 12.7 and platelets 337 LDH 859 and CRP 5.9. Patient is tolerating oral diet. Continued on dexamethasone 6 mg daily and Lovenox subcu and multivitamin supplementation. Pulmonary is on board. Current medications reviewed. Objective - Vital Signs Vital signs: Vital Signs Temp 99.4 F 08/12/21 19:36 Pulse 86 08/12/21 19:36 Resp 16 08/12/21 19:36 BP 122/71 08/12/21 19:36 Pulse Ox 90 L 08/12/21 19:36 Intake & Output 08/12/21 08/12/21 08/13/21 06:59 18:59 06:59 Intake Total 900 Balance 900 Weight 94.347 kg Intake: Intake, IV Titration 900 Amount Sodium Chloride 0.9% 1, 900 000 ml @ 75 mls/hr IV . [id number] [facility] Rx#:[id number] Other: # Voids 1 1 - Exam PHYSICAL EXAMINATION: Patient is lying in the bed comfortably, no acute distress, awake alert and oriented.. HEENT: Normocephalic. Neck is supple. Pupils reactive. Nostrils clear. Oral cavity is moist. Neck reveals no JVD, carotid bruits, or thyromegaly. CHEST EXAMINATION: Trachea is central. Symmetrical expansion. Bilateral scattered coarse sounds. Nonlabored breathing.. CARDIAC: Normal S1, S2 with no gallops. No murmurs ABDOMEN: Soft. Bowel sounds normal. No organomegaly. No abdominal bruits. Extremities: reveal no edema. No clubbing or cyanosis Neurologically awake, alert, oriented x3 with well-coordinated movements. No focal deficits noted Skin: No rash or skin lesions. Psychiatric: Cooperative. Nonsuicidal Musculoskeletal: No joint swelling or deformity. Normal range of motion. - Labs CBC & Chem 7: 08/13/21 06:43 08/13/21 06:43 Labs: Abnormal Lab Results - Last 24 Hours (Table) 08/12/21 Range/Units 07:53 Lactate Dehydrogenase 859 H (313-618) U/L C-Reactive Protein 5.9 H (<1.0) mg/dL Assessment and Plan Assessment: Acute hypoxic respiratory failure secondary to COVID-19 infection. Acute COVID- 19 pneumonia. Patient was tested positive on 08/03/2021. Symptoms since 07/31/2021. Not vaccinated. GERD Anxiety History of esophageal stricture and dysphagia. History of epilepsy DVT prophylaxis Lovenox subcu Plan: Patient with cannula oxygen supplementation. Currently on 3 L via nasal cannula. Continue with dexamethasone 6 mg daily and Lovenox subcu and multivitamin supplementation. Patient is out of window for remdesivir therapy. Pulmonary is on board. Continue to follow closely.
[2021-08-13] MEDS: SODIUM CHLORIDE 0.9% 1,000 ML IV SCH (12:13)
[2021-08-13] MEDS ORDERED: ZINC SULFATE 220 MG CAP PO SCH (12:15)
[2021-08-13] MEDS ORDERED: ASCORBIC ACID 500 MG TAB PO SCH (12:15)
[2021-08-13 12:58] VITALS: BP 132/81; PULSE 86; TEMP 99.2
--- NOTE | 2021-08-13 13:46 | P.PN ---
Subjective Progress Note Date: 08/13/21 Principal diagnosis: COVID-19 pneumonia 60-year-old white female patient who follows Dr. Hood for primary care services came into the emergency department on 08/11/2021 with complaints of shortness of breath, cough and onset of symptoms was on on 08/01/2021. She tested positive for COVID-19 on 08/03/2021, she is a non-vaccinated adult against COVID-19. She does report fever. Past history significant for epilepsy, GERD, never smoker, anxiety, depression. Chest x-ray shows bilateral patchy pulmonary infiltrates, no heart failure. Lab work showed white count of 6.4, hemoglobin 12.7, lymphocyte count 0.8, d-dimer 0.40, sodium is 140, potassium is 3.7, chloride was 109, CO2 is 22, BUN is 13, creatinine 0.6, AST was 89, ALT was 75, alkaline phosphatase is 79. Patient is currently on 2 L of oxygen pulse ox is 93%, she is having low-grade fevers while in the emergency department with a temp of 99.6F, blood pressure stable. She was started on Decadron 6 program twice daily, she is on Lovenox 40 mg daily, she is on IV fluids with 0.9 with a net 75 ML per hour, seems fairly comfortable, does not appear to be in any acute distress. The patient is seen today 08/12/2021 in follow-up on the regular medical floor. She is currently sitting up in bed. Awake and alert in no acute distress. Breathing easier today compared to yesterday. Continues with a dry nonproductive cough. She is maintaining O2 saturations in the low 90s on 3 L/m per nasal cannula. She's been afebrile. Hemodynamically stable. White count 6.4. Hemoglobin 12.7. Lymphocytes 0.8. D-dimer 0.44. LDH 859. C-reactive protein 5.9. She is continued on Decadron, Lovenox, vitamin supplements. The patient is seen today 08/13/2020 in follow-up on the regular medical floor. She is currently resting comfortably in bed. Awake and alert in no acute distress. Breathing easier today compared to yesterday. His x-ray reveals some patchy mid and lower lung bilateral CoVID pneumonia. White count 8.8. Hemoglobin 13.9. Lymphocytes 0.8. D-dimer 0.47. Sodium 144. Potassium 3.8. Creatinine 0.62. LDH 872. C-reactive protein 5.9. O2 saturations in the low 90s on 2 L/m per nasal cannula. 88% on room air with exercise. Meter 99.2. Hemodynamically stable. She is continued on Decadron, Lovenox, vitamin supplements. Objective - Vital Signs Vital signs: Vital Signs Temp 99.2 F 08/13/21 12:06 Pulse 86 08/13/21 12:06 Resp 18 08/13/21 12:06 BP 132/81 08/13/21 12:06 Pulse Ox 92 L 08/13/21 12:06 Intake & Output 08/12/21 08/13/21 08/13/21 18:59 06:59 18:59 Intake Total 900 Balance 900 Weight 94.347 kg Intake: Intake, IV Titration 900 Amount Sodium Chloride 0.9% 1, 900 000 ml @ 75 mls/hr IV . [id number] [facility] Rx#:[id number] Other: # Voids 1 - Exam GENERAL EXAM: Alert, very pleasant, 60-year-old female, on 2 L of oxygen and the pulse ox of 92% resting in bed, comfortable in no apparent distress. HEAD: Normocephalic/atraumatic. EYES: Normal reaction of pupils, equal size. Conjunctiva pink, sclera white. NOSE: Clear with pink turbinates. THROAT: No erythema or exudates. NECK: No masses, no JVD, no thyroid enlargement, no adenopathy. CHEST: No chest wall deformity. Symmetrical expansion. LUNGS: Equal air entry with bilateral crackles CVS: Regular rate and rhythm, normal S1 and S2, no gallops, no murmurs, no rubs ABDOMEN: Soft, nontender. No hepatosplenomegaly, normal bowel sounds, no guarding or rigidity. EXTREMITIES: No clubbing, no edema, no cyanosis, 2+ pulses and upper and lower extremities. MUSCULOSKELETAL: Muscle strength and tone normal. SPINE: No scoliosis or deformity SKIN: No rashes CENTRAL NERVOUS SYSTEM: No focal deficits, tone is normal in all 4 extremities. PSYCHIATRIC: Alert and oriented -3. Appropriate affect. Intact judgment and insight. - Labs CBC & Chem 7: 08/13/21 06:43 08/13/21 06:43 Labs: Abnormal Lab Results - Last 24 Hours (Table) 08/13/21 08/13/21 Range/Units 06:43 06:43 Plt Count 475 H (150-450) k/uL Lymphocytes # 0.8 L (1.0-4.8) k/uL Chloride 111 H (98-107) mmol/L Glucose 114 H (74-99) mg/dL Lactate Dehydrogenase 872 H (313-618) U/L C-Reactive Protein 5.9 H (<1.0) mg/dL Assessment and Plan Assessment: 1 Acute hypoxic respiratory failure related to acute COVID-19 related pneumonia, patient presented to the emergency department on 08/11/2021, with onset of symptoms on 08/01/2021, tested positive on 08/03/2021, nonvaccinated against COVID-19. Outside the window for Remdesivir, will be treated with Decadron, Lovenox and multivitamins 2 History of epilepsy 3 History of esophageal strictures with history of dysphagia 4 GERD 5 Anxiety 6 Nonsmoker Plan: The patient was seen and evaluated Chest x-ray and labs reviewed Question of a tiny left apical pneumothorax Follow up chest x-ray pending Currently on 2 L nasal cannula Titrate the FiO2 as tolerated Continue Decadron, Lovenox, vitamin supplements We will continue to follow I, the cosigning physician, performed a history & physical examination of the patient. Lungs sounds posterior crackles in the bilateral bases Maintaining O2 saturations in the 90s on 2 L/m per nasal cannula. I discussed the assessment and plan of care with my nurse practitioner, Violeta Kimbrough. I attest to the above note as dictated by her.
--- NOTE | 2021-08-13 14:44 | XR ---
EXAMINATION TYPE: XR chest 1V portable DATE OF EXAM: 08/13/2021 COMPARISON: Chest x-ray 08/13/2021 and earlier time HISTORY: Abnormal chest x-ray TECHNIQUE: Single frontal view of the chest is obtained. FINDINGS: There is no evident pneumothorax or pleural effusion. Bilateral airspace disease is presen t. Cardiac mediastinal silhouette is unchanged. Aorta is dense. IMPRESSION: Bilateral pneumonia. Previous finding thought likely to represent artifact.
[2021-08-13] MEDS: LORazepam 1 MG TAB PO PRN (14:54)
== END 2021-08-13 17:23 | disposition home or self-care (01) | DRG 177 ==
LOC: EC 01:44 → 4SSUR 04:07 → 3NCARDOBS 16:09
PROVIDERS: ADMIT Hospitalist; ATTEND Hospitalist
DX: U07.1 COVID-19 (principal); J12.82 Pneumonia due to coronavirus disease 2019; J96.01 Acute respiratory failure with hypoxia; F32.A Depression, unspecified; G89.29 Other chronic pain; I20.9 Angina pectoris, unspecified; J06.9 Acute upper respiratory infection, unspecified; K22.2 Esophageal obstruction; K40.20 Bilateral inguinal hernia, without obstruction or gangrene, not specified as recurrent; E86.0 Dehydration; F41.9 Anxiety disorder, unspecified; G40.909 Epilepsy, unspecified, not intractable, without status epilepticus; K21.9 Gastro-esophageal reflux disease without esophagitis; Z79.01 Long term (current) use of anticoagulants; Z79.82 Long term (current) use of aspirin; Z79.899 Other long term (current) drug therapy; Z82.49 Family history of ischemic heart disease and other diseases of the circulatory system; Z82.5 Family history of asthma and other chronic lower respiratory diseases; Z90.710 Acquired absence of both cervix and uterus
CPT/HCPCS: 36415; 71045; 71046; 80048; 80053; 83615; 85025; 85379; 86140; 96374; 96375; 99285

== ENCOUNTER 2021-08-15 04:12 | Inpatient (IN) | payer MEDICARE ==
--- NOTE | 2021-08-15 04:24 | ED ---
Chest Pain HPI - General Stated Complaint: Chest Pain Time Seen by Provider: 08/15/21 04:16 Source: RN notes reviewed, old records reviewed Mode of arrival: EMS Limitations: no limitations - History of Present Illness Initial Comments: This is a 60-year-old female presented today for evaluation. Patient is a known recent coronavirus patient now with chest pain weakness nausea vomiting decreased appetite inability to ambulate secondary to weakness decreased activity level. Patient is here for significant weakness bodyaches pains MD Complaint: chest pain -: days(s) Onset: during rest, during exertion Pain Location: substernal Severity: moderate Severity scale (1-10): 4 Quality: tightness, aching Consistency: intermittent Improves With: nothing Worsens With: nothing Other Symptoms: cough, palpitations Treatments Prior to Arrival: none - Related Data Home Medications Medication Instructions Recorded Confirmed Gabapentin [Neurontin] 400 mg PO BID 02/20/15 08/11/21 carBAMazepine [TEGretol] 400 mg PO Q12H 02/20/15 08/11/21 Aspirin EC [Ecotrin Low Dose] 81 mg PO DAILY 12/20/17 08/11/21 Acetaminophen Tab [Tylenol] 1,000 mg PO Q6HR PRN 08/11/21 08/11/21 Cholecalciferol [Vitamin D3 (25 50 mcg PO DAILY 08/11/21 08/11/21 Mcg = 1000 Iu)] LORazepam 0.5 mg PO BID PRN 08/11/21 08/11/21 Loratadine [Claritin] 10 mg PO DAILY 08/11/21 08/11/21 Rosuvastatin Calcium 20 mg PO HS 08/11/21 08/11/21 hydrOXYzine HCL 10 mg PO HS 08/11/21 08/11/21 Previous Rx's Medication Instructions Recorded Dexamethasone [Decadron] 6 mg PO DAILY 7 Days #7 tablet 08/09/21 Ascorbic Acid [Vitamin C] 500 mg PO DAILY #30 tab 08/13/21 Zinc Sulfate [Orazinc] 220 mg PO DAILY #30 cap 08/13/21 Allergies Allergy/AdvReac Type Severity Reaction Status Date / Time morphine Allergy Itching Verified 08/11/21 06:37 Review of Systems ROS Statement: Those systems with pertinent positive or pertinent negative responses have been documented in the HPI. ROS Other: All systems not noted in ROS Statement are negative. EKG Findings - EKG Comments: EKG Findings:: EKG is sinus rhythm 83 OR 166 QRS 86 QTc 458 Past Medical History Past Medical History: Chest Pain / Angina, GERD/Reflux, Musculoskeletal Disorder Additional Past Medical History / Comment(s): EPILEPSY-LAST SEIZURE APPROX 8 YRS,CHRONIC PAIN TO ABD RADIATING RT HIP AND LEG.-COMES AND G0ES. HAS HAD TROUBLE SWALLOWING SINCE THE LAST 6 MONTHS History of Any Multi-Drug Resistant Organisms: None Reported Past Surgical History: Appendectomy, Cholecystectomy, Heart Catheterization, Hernia Repair, Hysterectomy, Tubal Ligation Additional Past Surgical History / Comment(s): RT INGUINAL HERNIA SURGERY W/ MESH, LT INGUINAL HERNIA REPAIR, BLADDER SLING,LT BREAST BX,APRIL KNEE ARTHROSCOPY,RT ANKLE ARTHROSCOPY, NERVE REMOVED RT FOOT, esophageal strictures Past Anesthesia/Blood Transfusion Reactions: Previous Problems w/ Anesthesia, Motion Sickness Additional Past Anesthesia/Blood Transfusion Reaction / Comment(s): LOW B/P AND PAIN CONTROL AFTER SURGERY Past Psychological History: Anxiety, Depression Smoking Status: Never smoker Past Alcohol Use History: None Reported Past Drug Use History: None Reported - Past Family History Father Family Medical History: Myocardial Infarction ([place]) Additional Family Medical History / Comment(s): AT AGE 75 WITH [place], ABDOMINAL ANEURYSM,EMPHYSEMA, HEART PROBLEMS Mother Family Medical History: Dementia, GI Bleed Additional Family Medical History / Comment(s): WITH GI BLEED AT AGE 73,ALHEIMER'S DISEASE Brother(s) Family Medical History: Renal Disease Additional Family Medical History / Comment(s): MULTIPLE CONGENITAL SPINA BIFIDA General Exam General appearance: alert, in no apparent distress, anxious, lethargic Head exam: Present: atraumatic, normocephalic, normal inspection Eye exam: Present: normal appearance, PERRL, EOMI. Absent: scleral icterus, conjunctival injection, periorbital swelling ENT exam: Present: normal exam, mucous membranes moist Neck exam: Present: normal inspection. Absent: tenderness, meningismus, lymphadenopathy Respiratory exam: Present: normal lung sounds bilaterally. Absent: respiratory distress, wheezes, rales, rhonchi, stridor Cardiovascular Exam: Present: regular rate, normal rhythm, normal heart sounds. Absent: systolic murmur, diastolic murmur, rubs, gallop, clicks GI/Abdominal exam: Present: soft, normal bowel sounds. Absent: distended, tenderness, guarding, rebound, rigid Extremities exam: Present: normal inspection, full ROM, normal capillary refill. Absent: tenderness, pedal edema, joint swelling, calf tenderness Back exam: Present: normal inspection Neurological exam: Present: alert, oriented X3, CN II-XII intact Psychiatric exam: Present: normal affect, normal mood Skin exam: Present: warm, dry, intact, normal color. Absent: rash Course Vital Signs 08/15/21 08/15/21 08/15/21 04:20 05:13 06:00 Temperature 99.5 F 98.6 F 98.6 F Pulse Rate 86 84 91 Respiratory 18 20 18 Rate Blood Pressure 122/79 119/57 113/58 O2 Sat by Pulse 95 96 96 Oximetry - Reevaluation(s) Reevaluation #1: 08/15/21 06:17 Attic record is reviewed Reevaluation #2: 08/15/21 06:17 Patient still feeling terrible despite treatment here in the ER Reevaluation #3: 08/15/21 06:18 Patient informed of results and questions have been answered - Consultations Consultation #1: Spoke with [facility] we'll admit this patient Chest Pain MDM - MDM 60 female to the emergency department today with chest pain, CT negative for PE with positive for worsening coronavirus. Patient be admitted for continued monitoring and evaluation Disposition Clinical Impression: Chest pain, COVID-19, COVID-19 virus infection, 2019 novel coronavirus-infected pneumonia ([facility]) Disposition: ADMITTED IP TO THIS HOSP Condition: Fair Is patient prescribed a controlled substance at d/c from ED?: No Referrals: Yasir Hood MD [Primary Care Provider] - 1-2 days
[2021-08-15 05:26] LABS: Basophils % (A) 0 %; Eosinophils # (A) 0.2 k/uL (0-0.7); Eosinophils % (A) 2 %; HCT 40.4 % (34.0-46.0); HGB 13.8 gm/dL (11.4-16.0); Lymphocytes # (A) 1.2 k/uL (1.0-4.8); Lymphocytes % (A) 13 %; MCH 33.1 pg (25.0-35.0); MCHC 34.1 g/dL (31.0-37.0); MCV 96.9 fL (80.0-100.0); Mean Platelet Volume 7.2; Monocytes # (A) 0.5 k/uL (0-1.0); Monocytes % (A) 5 %; Neutrophils # (A) 6.8 k/uL (1.3-7.7); Neutrophils % (A) 78 %; Platelet Count 577 k/uL (150-450); RBC 4.17 m/uL (3.80-5.40); RDW 12.5 % (11.5-15.5); WBC 8.7 k/uL (3.8-10.6)
[2021-08-15 05:29] LABS: ALT 85 U/L (4-34); AST 64 U/L (14-36); African American GFR (CKD) >90 (>60 ml/min/1.73 sqM); Albumin 3.9 g/dL (3.5-5.0); Alkaline Phosphatase 92 U/L (38-126); Anion Gap 9 mmol/L; Blood Urea Nitrogen 14 mg/dL (7-17); C Reactive Protein 5.6 mg/dL (<1.0); Calcium 9.7 mg/dL (8.4-10.2); Carbon Dioxide 22 mmol/L (22-30); Chloride 108 mmol/L (98-107); Glucose 112 mg/dL (74-99); LDH 798 U/L (313-618); Magnesium 2.3 mg/dL (1.6-2.3); Non-African American GFR(CKD) >90 (>60 ml/min/1.73 sqM); Potassium 3.7 mmol/L (3.5-5.1); Sodium 139 mmol/L (137-145); Total Bilirubin 0.5 mg/dL (0.2-1.3); Total Protein 6.9 g/dL (6.3-8.2)
[2021-08-15 05:30] LABS: Partial Thromboplastin Time 23.2 sec (22.0-30.0); Prothrombin Time 10.4 sec (9.0-12.0)
[2021-08-15] MEDS ORDERED: ONDANSETRON 4 MG/2 ML VIAL IVP STA (05:38)
--- NOTE | 2021-08-15 06:04 | CT ---
EXAMINATION TYPE: CT angio chest DATE OF EXAM: 08/15/2021 COMPARISON: 02/01/2011 HISTORY: pe Short of breath CT DLP: 409.9 mGycm Automated exposure control for dose reduction was used. CONTRAST: Performed with IV Contrast, patient injected with 100 mL of Isovue 370. There are Three-D postprocessed images. There is patchy interstitial and airspace infiltrates throughout both lung borja. There is no medias tinal adenopathy. There are no hilar masses. The ascending aorta measures 4 cm. There is no dissectio n. There is normal contrast opacification of the pulmonary arteries. There are no filling defects. There is some degenerative mild spurring in the thoracic spine. Sternum is intact. The upper abdominal sof t tissues appear intact. IMPRESSION: No evidence of pulmonary embolism. Extensive bilateral pulmonary infiltrates consistent with multifocal pneumonia. Pulmonary infiltrates significantly increased compared to old exam.
[2021-08-15] MEDS ORDERED: NALOXONE 0.4 MG/ML 1 ML VIAL IV PRN (06:15)
[2021-08-15] MEDS ORDERED: IBUPROFEN 400 MG TAB PO PRN (06:15)
[2021-08-15] MEDS ORDERED: ONDANSETRON 4 MG/2 ML VIAL IVP PRN (06:15)
[2021-08-15] MEDS ORDERED: SODIUM CHLORIDE 0.9% 1,000 ML IV ONE (06:35)
[2021-08-15] MEDS ORDERED: SODIUM CHLORIDE 0.9% 500 ML 500 ML IV ONE (06:35)
[2021-08-15] MEDS ORDERED: guaiFENesin-DM 100-10MG/5ML 10 ML CUP PO PRN (07:48)
--- NOTE | 2021-08-15 08:09 | P.HPIM ---
History of Present Illness Patient is a 60-year-old female with a known history of GERD, epilepsy, anxiety/depression previous history of cardiac catheterization presents to ER with complaints of cough congestion and shortness of breath. Patient states that she started having symptoms on 08/01/2021 and came to ER on 08/03/2021 and tested positive for COVID-19 infection. Patient has been having fevers at home at that time with little diarrhea. Patient has been diagnosed with bilateral Covid pneumonia, she was improving and she was discharged on 2 L oxygen via nasal cannula. However patient developed more weakness and was very tired, she could not do anything although she denies difficulty of walking. She continued to have respiratory symptoms, dyspnea got worse and she has some chest tightness. She was complaining of from coughing with yellow phlegm also with chest pain and abdominal pain which got worse with coughing re-add No fever. She describes her chest pain as pressure-like 4/10 comes with coughing. Also she complaining of from epigastric pain about 5/10 in severity which was been going on for about one to 2 weeks. Associated with poor appetite, poor oral intake but no diarrhea currently. Also she is having some stress incontinence whenever she calls which is an you for her but she denies dysuria No smoking or alcohol or illicit drugs multivitamin supplementation. Pulmonary is on board. Vitals are stable and patient is saturating 96-93% on room air Labs reviewed showing unremarkable CBC, INR is 1.0. D-dimer is elevated 2.5 BMP is unremarkable, liver enzymes slightly elevated. Troponin is negative less than 0.012. EKG: Normal sinus rhythm at [address]-T changes and QTC 458. CT of the chest: No pulmonary embolism, extensive bilateral pulmonary infiltrates consistent with multifocal pneumonia. Pulmonary infiltrates significantly increased compared to old exam Review of Systems -CONSTITUTIONAL: No fever, asabove HEENT: No recent visual problems or hearing problems. Denied any sore throat. CARDIOVASCULAR: No orthopnea, PND, no palpitations, no syncope. PULMONARY: No chest wall tenderness, no hemoptysis. GASTROINTESTINAL: No diarrhea, no nausea, no vomiting, no abdominal pain. Normoactive bowel sounds. NEUROLOGICAL: No headaches, no weakness, no numbness. HEMATOLOGICAL: Denies any bleeding or petechiae. GENITOURINARY: Denies any burning micturition, frequency, or urgency. MUSCULOSKELETAL/RHEUMATOLOGICAL: Denies any joint pain, swelling, or any muscle pain. ENDOCRINE: Denies any polyuria or polydipsia. Past Medical History Past Medical History: Chest Pain / Angina, GERD/Reflux, Musculoskeletal Disorder Additional Past Medical History / Comment(s): EPILEPSY-LAST SEIZURE APPROX 8 YRS,CHRONIC PAIN TO ABD RADIATING RT HIP AND LEG.-COMES AND G0ES. HAS HAD TROUBLE SWALLOWING SINCE THE LAST 6 MONTHS History of Any Multi-Drug Resistant Organisms: None Reported Past Surgical History: Appendectomy, Cholecystectomy, Heart Catheterization, Hernia Repair, Hysterectomy, Tubal Ligation Additional Past Surgical History / Comment(s): RT INGUINAL HERNIA SURGERY W/ MESH, LT INGUINAL HERNIA REPAIR, BLADDER SLING,LT BREAST BX,APRIL KNEE ARTHROSCOPY,RT ANKLE ARTHROSCOPY, NERVE REMOVED RT FOOT, esophageal strictures Past Anesthesia/Blood Transfusion Reactions: Previous Problems w/ Anesthesia, Motion Sickness Additional Past Anesthesia/Blood Transfusion Reaction / Comment(s): LOW B/P AND PAIN CONTROL AFTER SURGERY Past Psychological History: Anxiety, Depression Smoking Status: Never smoker Past Alcohol Use History: None Reported Past Drug Use History: None Reported - Past Family History Father Family Medical History: Myocardial Infarction ([place]) Additional Family Medical History / Comment(s): AT AGE 75 WITH [place], ABDOMINAL ANEURYSM,EMPHYSEMA, HEART PROBLEMS Mother Family Medical History: Dementia, GI Bleed Additional Family Medical History / Comment(s): WITH GI BLEED AT AGE 73,ALHEIMER'S DISEASE Brother(s) Family Medical History: Renal Disease Additional Family Medical History / Comment(s): MULTIPLE CONGENITAL SPINA BIFIDA Medications and Allergies Home Medications Medication Instructions Recorded Confirmed Type Gabapentin [Neurontin] 400 mg PO BID 02/20/15 08/11/21 History carBAMazepine [TEGretol] 400 mg PO Q12H 02/20/15 08/11/21 History Aspirin EC [Ecotrin Low Dose] 81 mg PO DAILY 12/20/17 08/11/21 History Dexamethasone [Decadron] 6 mg PO DAILY 7 Days #7 tablet 08/09/21 08/11/21 Rx Acetaminophen Tab [Tylenol] 1,000 mg PO Q6HR PRN 08/11/21 08/11/21 History Cholecalciferol [Vitamin D3 (25 50 mcg PO DAILY 08/11/21 08/11/21 History Mcg = 1000 Iu)] LORazepam 0.5 mg PO BID PRN 08/11/21 08/11/21 History Loratadine [Claritin] 10 mg PO DAILY 08/11/21 08/11/21 History Rosuvastatin Calcium 20 mg PO HS 08/11/21 08/11/21 History hydrOXYzine HCL 10 mg PO HS 08/11/21 08/11/21 History Ascorbic Acid [Vitamin C] 500 mg PO DAILY #30 tab 08/13/21 Rx Zinc Sulfate [Orazinc] 220 mg PO DAILY #30 cap 08/13/21 Rx Allergies Allergy/AdvReac Type Severity Reaction Status Date / Time morphine Allergy Itching Verified 08/11/21 06:37 Physical Exam Vitals: Vital Signs Temp Pulse Resp BP Pulse Ox 08/15/21 06:00 98.6 F 91 18 113/58 96 08/15/21 05:13 98.6 F 84 20 119/57 96 08/15/21 04:20 99.5 F 86 18 122/79 95 Intake and Output 08/14/21 08/15/21 08/15/21 22:59 06:59 14:59 Other: Weight 94.347 kg -GENERAL: The patient is alert and oriented x3, not in any acute distress. Well developed, well nourished. Generally weak HEENT: Pupils are round and equally reacting to light. EOMI. No scleral icterus. No conjunctival pallor. Normocephalic, atraumatic. No pharyngeal erythema. No thyromegaly. CARDIOVASCULAR: S1 and S2 present. No murmurs, rubs, or gallops. -PULMONARY: Chest is clear to auscultation, no wheezing or crackles. Bilateral decreased entry and mild crepitation ABDOMEN: Soft, nontender, nondistended, normoactive bowel sounds. No palpable organomegaly. MUSCULOSKELETAL: No joint swelling or deformity. EXTREMITIES: No cyanosis, clubbing, or pedal edema. NEUROLOGICAL: Gross neurological examination did not reveal any focal deficits. SKIN: No rashes. No petechiae Results CBC & Chem 7: 08/15/21 04:39 08/15/21 04:39 Labs: Abnormal Lab Results - Last 24 Hours (Table) 08/15/21 08/15/21 08/15/21 Range/Units 04:39 04:39 04:39 Plt Count 577 H (150-450) k/uL D-Dimer 2.53 H (<0.60) mg/L FEU Chloride 108 H (98-107) mmol/L Glucose 112 H (74-99) mg/dL AST 64 H (14-36) U/L ALT 85 H (4-34) U/L Lactate Dehydrogenase 798 H (313-618) U/L C-Reactive Protein 5.6 H (<1.0) mg/dL Assessment and Plan Assessment: Worsening Bilateral Covid pneumonia, Patient was tested positive on 08/03/2021. Symptoms since 07/31/2021. Not vaccinated. CTA showed worsening pneumonia Increased inflammatory markers History of GERD History of Anxiety History of esophageal stricture and dysphagia. History of epilepsy Plan: This is a pleasant 60 years old female who presents with bilateral covid pneumon ia Continue with vitamin C, vitamin D and zinc. Continue with dexamethasone. Robitussin Pulmonary consult Check leg ultrasound Send sputum for culture Check a bladder scan Labs and medication were reviewed.. Continue same treatment. Continue with symptomatic treatment. Resume home medication. Monitor lytes and vitals. DVT and GI prophylaxis. Further recommendations depends on the clinical course of the patient DVT prophylaxis: Subcutaneous Lovenox GI Prophylaxis: Pepcid PT/OT: Pending Prognosis is guarded
--- NOTE | 2021-08-15 08:51 | US ---
EXAMINATION TYPE: US venous doppler duplex LE BI DATE OF EXAM: 08/15/2021 8:36 AM COMPARISON: NONE CLINICAL HISTORY: leg swelling. edema SIDE PERFORMED: bilateral TECHNIQUE: The lower extremity deep venous system is examined utilizing real time linear array sonog markie with graded compression, doppler sonography and color-flow sonography. VESSELS IMAGED: Common Femoral Vein Deep Femoral Vein Greater Saphenous Vein * Femoral Vein Popliteal Vein Small Saphenous Vein * Proximal Calf Veins (* superficial vessels) Right Leg: no evidence of DVT. rouleaux flow noted Left Leg: no evidence of DVT. rouleaux flow noted Grayscale, color doppler, spectral doppler imaging performed of the deep veins of the bilateral lower extremities. There is normal flow, compressibility, vascular waveforms. IMPRESSION: No ultrasound evidence for acute DVT in either lower extremity.
[2021-08-15] MEDS: SODIUM CHLORIDE 0.9% 250 ML IV SCH ×5 (09:18→09:22)
[2021-08-15] MEDS: SODIUM CHLORIDE 0.9% 1,000 ML IV SCH ×2 (09:46→15:44)
[2021-08-15] MEDS: ENOXAPARIN 40 MG/0.4 ML SYRINGE SQ SCH (10:29)
[2021-08-15] MEDS: CHOLECALCIFEROL 25 MCG (1000 IU) TABLET PO SCH (10:29)
[2021-08-15] MEDS: DEXAMETHASONE SOD PHOSPHATE 10 MG/ML 1 ML VIAL IVP SCH (10:30)
[2021-08-15] MEDS: ASCORBIC ACID 500 MG TAB PO SCH (10:30)
[2021-08-15] MEDS: ZINC SULFATE 220 MG CAP PO SCH (10:30)
[2021-08-15] MEDS: DEXTROSE 5%-0.9% NACL 1,000 ML IV SCH (10:31)
--- NOTE | 2021-08-15 10:40 | P.CNPUL ---
History of Present Illness Consult date: 08/15/21 Requesting physician: Kristan Ornelas Reason for consult: dyspnea, cough, hypoxemia, pneumonia, abnormal CXR/CT Chief complaint: Coronavirus pneumonia. History of present illness: Pulmonary consult dated 08/15/2021. 60-year-old female who was recently inpatient here between August 11 of August 13, with coronavirus pneumonia. The patient was discharged home on the 6, on vitamins. She came back to the emergency room complaining of chest pain and shortness of breath. The patient had a CAT scan which did not reveal a PE, but did show diffuse bilateral infiltrates. Her complaints included chest pain, shortness of breath, weakness, nausea, vomiting, poor oral intake, dehydration, and generally just not feeling well. She was seen in the ER, room 7. She is on 2 L nasal cannula. She's getting saline at KVO. The patient qualifies for Decadron, Lovenox, vitamins, and because she's having difficulty with sleep, we will add some Ambien. White count 8.7, hemoglobin 13.8, hematocrit 40.4, and platelet count 577,000. D-dimer is 2.53. Sodium 139, potassium 3.7, chlorides 108, CO2 22, anion gap 9, BUN 14, creatinine 0.55. AST 64 ALT 85. Coronavirus testing was again positive. Ultrasound of bilateral lower extremities, was negative. CT angiogram did not show pulmonary embolism, but did show diffuse groundglass opacities. Review of Systems REVIEW OF SYSTEMS: CONSTITUTIONAL: Weakness and fatigue. NEUROLOGIC: [ Negative.] HEENT: [ Negative.] CARDIAC: Chest pain. PULMONARY: Shortness of breath, and hoarse cough. GI: Poor oral intake with nausea, vomiting, and diarrhea. : [Negative.] RHEUMATOLOGIC: [ Negative.] IMMUNOLOGIC: [ Negative.] ENDOCRINE: [Negative. ] DERMATOLOGIC: [Negative.] Past Medical History Past Medical History: Chest Pain / Angina, GERD/Reflux, Musculoskeletal Disorder Additional Past Medical History / Comment(s): EPILEPSY-LAST SEIZURE APPROX 8 YRS,CHRONIC PAIN TO ABD RADIATING RT HIP AND LEG.-COMES AND G0ES. HAS HAD TROUBLE SWALLOWING SINCE THE LAST 6 MONTHS History of Any Multi-Drug Resistant Organisms: None Reported Past Surgical History: Appendectomy, Cholecystectomy, Heart Catheterization, H ernia Repair, Hysterectomy, Tubal Ligation Additional Past Surgical History / Comment(s): RT INGUINAL HERNIA SURGERY W/ MESH, LT INGUINAL HERNIA REPAIR, BLADDER SLING,LT BREAST BX,APRIL KNEE ARTHROSCOPY,RT ANKLE ARTHROSCOPY, NERVE REMOVED RT FOOT, esophageal strictures Past Anesthesia/Blood Transfusion Reactions: Previous Problems w/ Anesthesia, Motion Sickness Additional Past Anesthesia/Blood Transfusion Reaction / Comment(s): LOW B/P AND PAIN CONTROL AFTER SURGERY Past Psychological History: Anxiety, Depression Additional Psychological History / Comment(s): Pt resides with her spouse who is currently at [facility] with [facility]. Pt is independent. Smoking Status: Never smoker Past Alcohol Use History: None Reported Past Drug Use History: None Reported - Past Family History Father Family Medical History: Myocardial Infarction (IN) Additional Family Medical History / Comment(s): AT AGE 75 WITH IN, ABDOMINAL ANEURYSM,EMPHYSEMA, HEART PROBLEMS Mother Family Medical History: Dementia, GI Bleed Additional Family Medical History / Comment(s): WITH GI BLEED AT AGE 73,ALHEIMER'S DISEASE Brother(s) Family Medical History: Renal Disease Additional Family Medical History / Comment(s): MULTIPLE CONGENITAL SPINA BIFIDA Medications and Allergies Home Medications Medication Instructions Recorded Confirmed Type Gabapentin [Neurontin] 400 mg PO BID 02/20/15 08/15/21 History carBAMazepine [TEGretol] 400 mg PO Q12H 02/20/15 08/15/21 History Aspirin EC [Ecotrin Low Dose] 81 mg PO DAILY 12/20/17 08/15/21 History Dexamethasone [Decadron] 6 mg PO DAILY 7 Days #7 tablet 08/09/21 08/15/21 Rx Acetaminophen Tab [Tylenol] 1,000 mg PO Q6HR PRN 08/11/21 08/15/21 History Cholecalciferol [Vitamin D3 (25 50 mcg PO DAILY 08/11/21 08/15/21 History Mcg = 1000 Iu)] LORazepam 0.5 mg PO BID PRN 08/11/21 08/15/21 History Loratadine [Claritin] 10 mg PO DAILY 08/11/21 08/15/21 History Rosuvastatin Calcium 20 mg PO HS 08/11/21 08/15/21 History hydrOXYzine HCL 10 mg PO HS 08/11/21 08/15/21 History Ascorbic Acid [Vitamin C] 500 mg PO DAILY #30 tab 08/13/21 08/15/21 Rx Zinc Sulfate [Orazinc] 220 mg PO DAILY #30 cap 08/13/21 08/15/21 Rx Allergies Allergy/AdvReac Type Severity Reaction Status Date / Time morphine Allergy Itching Verified 08/15/21 08:28 Physical Exam Osteopathic Statement: *. No significant issues noted on an osteopathic struc tural exam other than those noted in the History and Physical/Consult. Vitals: Vital Signs Temp Pulse Resp BP Pulse Ox 08/15/21 07:42 98 F 88 18 135/88 93 L 08/15/21 06:00 98.6 F 91 18 113/58 96 08/15/21 05:13 98.6 F 84 20 119/57 96 08/15/21 04:20 99.5 F 86 18 122/79 95 Intake and Output 08/14/21 08/15/21 08/15/21 22:59 06:59 14:59 Other: Weight 94.347 kg 94.347 kg No acute distress, oriented 3. 3 L saturation is 96%. HEENT examination is grossly unremarkable. Neck supple. Full range of motion. No adenopathy thyromegaly or neck vein distention. Cardiovascular examination reveals regular rhythm rate. S1-S2 normal. No S3 or S4. No discernible murmur noted. Heart rate 88 bpm. Lungs reveal mild to moderate bilateral rhonchi. No wheezes. No crackles. Breath sounds equal bilaterally. Abdomen soft bowel sounds are heard. No masses or tenderness. Extremities are intact. No cyanosis clubbing or edema. Skin is without rash or lesion. Neurologic examination is brief but nonfocal. Results - Laboratory Findings CBC and BMP: 08/15/21 04:39 08/15/21 04:39 PT/INR, D-dimer PT 10.4 sec (9.0-12.0) 08/15/21 04:39 INR 1.0 (<1.2) 08/15/21 04:39 D-Dimer 2.53 mg/L FEU (<0.60) H 08/15/21 04:39 Abnormal lab findings: Abnormal Labs 08/15/21 08/15/21 08/15/21 04:39 04:39 04:39 Plt Count 577 H D-Dimer 2.53 H Chloride 108 H Glucose 112 H AST 64 H ALT 85 H Lactate Dehydrogenase 798 H C-Reactive Protein 5.6 H Coronavirus (PCR) 08/15/21 07:00 Plt Count D-Dimer Chloride Glucose AST ALT Lactate Dehydrogenase C-Reactive Protein Coronavirus (PCR) Detected A - Diagnostic Findings CT scan - chest: image reviewed U/S of Legs: image reviewed Assessment and Plan Assessment: Acute hypoxemic respiratory failure secondary to coronavirus associated pneumonia, and recent admission, between August 11 and August 13, for the same diagnosis. No evidence of pulmonary embolus him on CT angiogram. No evidence of lower extremity DVT. History of seizure disorder. History of gastroesophageal reflux disease. History of hyperlipidemia. History of dysphagia, secondary to esophageal strictures. Plan: Plan dated 08/15/2021. The patient was placed on Lovenox, Decadron, vitamin C, vitamin D3, and zinc. She is not a candidate for REM. She is not sick enough to receive FLORENCE. In addition, we added Ambien to her regimen. She's had difficulty sleeping at nighttime. We will continue to follow and make recommendations where appropriate. Prognosis is guarded. We will continue to follow this patient along with you. Time with Patient: Greater than 30
[2021-08-15 14:01] VITALS: BMI 31.6
[2021-08-15] MEDS: LORazepam 2 MG/ML INJ IV PRN (18:08)
[2021-08-15] MEDS: carBAMazepine 200 MG TAB PO SCH (20:08)
[2021-08-15] MEDS: GABAPENTIN 400 MG CAP PO SCH (20:08)
[2021-08-15] MEDS: hydrOXYzine HCL 10 MG TAB PO SCH (20:08)
[2021-08-15] MEDS: ZOLPIDEM 10 MG TAB PO PRN (20:10)
[2021-08-16] MEDS: DEXTROSE 5%-0.9% NACL 1,000 ML IV SCH ×2 (01:04→09:21)
[2021-08-16] MEDS: SODIUM CHLORIDE 0.9% 1,000 ML IV SCH ×4 (02:03→22:38)
[2021-08-16] MEDS: ACETAMINOPHEN TAB 325 MG TAB PO PRN ×2 (05:37→15:40)
[2021-08-16] MEDS: CHOLECALCIFEROL 25 MCG (1000 IU) TABLET PO SCH (08:25)
[2021-08-16] MEDS: ZINC SULFATE 220 MG CAP PO SCH (08:25)
[2021-08-16] MEDS: ASCORBIC ACID 500 MG TAB PO SCH (08:25)
[2021-08-16] MEDS: ASPIRIN 81 MG PO SCH (08:25)
[2021-08-16] MEDS: GABAPENTIN 400 MG CAP PO SCH ×2 (08:25→20:37)
[2021-08-16] MEDS: ENOXAPARIN 40 MG/0.4 ML SYRINGE SQ SCH (08:26)
[2021-08-16] MEDS: DEXAMETHASONE SOD PHOSPHATE 10 MG/ML 1 ML VIAL IVP SCH (08:26)
[2021-08-16] MEDS: carBAMazepine 200 MG TAB PO SCH ×2 (08:29→20:37)
[2021-08-16 08:52] LABS: Basophils # (A) 0.02 X 10*3/uL (0.00-0.10); Basophils % (A) 0.3 %; Eosinophils # (A) 0.28 X 10*3/uL (0.04-0.35); Eosinophils % (A) 4.9 %; HCT 39.5 % (37.2-46.3); HGB 12.8 g/dL (12.0-15.0); MCH 32.4 pg (27.0-32.0); MCHC 32.4 g/dL (32.0-37.0); Mean Platelet Volume 9.5 fL (9.5-12.2); Monocytes # (A) 0.61 X 10*3/uL (0.20-1.00); Monocytes % (A) 10.6 %; Neutrophils # (A) 3.33 X 10*3/uL (1.80-7.70); Neutrophils % (A) 57.9 %; Platelet Count 519 X 10*3/uL (140-440); RBC 3.95 X 10*6/uL (4.10-5.20); RDW 12.3 % (11.5-14.5); WBC 5.76 X 10*3/uL (4.50-10.00)
[2021-08-16] MEDS ORDERED: DEXAMETHASONE 6 MG PO SCH (09:00)
[2021-08-16 09:33] LABS: African American GFR (CKD) 121.1 (60.0-200.0); Albumin 3.4 g/dL (3.8-4.9); Albumin/Globulin Ratio 1.42 (1.60-3.17); Anion Gap 15.1 mmol/L (10.00-18.00); Calcium 8.7 mg/dL (8.7-10.3); Carbon Dioxide 15.9 mmol/L (20.0-27.5); Globulin 2.4 g/dL (1.6-3.3); Magnesium 2.3 mg/dL (1.5-2.4); Non-African American GFR(CKD) 104.5 (60.0-200.0); Phosphorus 3.1 mg/dL (2.4-5.1); Potassium 3.7 mmol/L (3.5-5.5); Total Bilirubin 0.2 mg/dL (0.30-1.20); Total Protein 5.8 g/dL (6.2-8.2)
--- NOTE | 2021-08-16 15:15 | P.PN ---
Subjective Progress Note Date: 08/16/21 Principal diagnosis: Weakness. Pulmonary consult dated 08/15/2021. 60-year-old female who was recently inpatient here between August 11 of August 13, with coronavirus pneumonia. The patient was discharged home on the , on vitamins. She came back to the emergency room complaining of chest pain and shortness of breath. The patient had a CAT scan which did not reveal a PE, but did show diffuse bilateral infiltrates. Her complaints included chest pain, shortness of breath, weakness, nausea, vomiting, poor oral intake, dehydration, and generally just not feeling well. She was seen in the ER, room 7. She is on 2 L nasal cannula. She's getting saline at KVO. The patient qualifies for Decadron, Lovenox, vitamins, and because she's having difficulty with sleep, we will add some Ambien. White count 8.7, hemoglobin 13.8, hematocrit 40.4, and platelet count 577,000. D-dimer is 2.53. Sodium 139, potassium 3.7, chlorides 108, CO2 22, anion gap 9, BUN 14, creatinine 0.55. AST 64 ALT 85. Coronavirus testing was again positive. Ultrasound of bilateral lower extremities, was negative. CT angiogram did not show pulmonary embolism, but did show diffuse groundglass opacities. Progress note dated 08/16/2021. 60-year-old female who was in the hospital here, between August 11 in August 13, with coronavirus pneumonia. She was discharged home on August 13, and came back to the emergency room complaining of shortness of breath. She did not have a pulmonary embolism on CT angiogram, but the CT did show diffuse bilateral infiltrates. The patient was seen in the emergency room yesterday, and we thought she qualifies for Decadron, Lovenox, and vitamins. In addition, we will do some Ambien for her, she was complaining of insomnia. Currently, she is on room air. Saturations are 92%. She's not receiving any IV fluids. Current labs include a white count of 5.8, he will been 12.8, hematocrit 39.5, and a platelet count of 519,000. Sodium 141, potassium 3.7, chlorides 110, CO2 16, anion gap 15, BUN 8, creatinine 0.5. AST was 48 with an ALT of 72. Dopplers of the lower extremities were negative for DVT. Objective - Vital Signs Vital signs: Vital Signs Temp 98.1 F 08/16/21 10:00 Pulse 94 08/16/21 10:00 Resp 18 08/16/21 10:00 BP 133/70 08/16/21 10:00 Pulse Ox 92 L 08/16/21 10:00 Intake & Output 08/15/21 08/16/21 08/16/21 18:59 06:59 18:59 Weight 94.347 kg Other: Voiding Method Toilet Toilet # Voids 4 - Exam No acute distress, oriented 3. 2 L saturation is 99%. Room air saturation is 93%. HEENT examination is grossly unremarkable. Neck supple. Full range of motion. No adenopathy thyromegaly or neck vein distention. Cardiovascular examination reveals regular rhythm rate. S1-S2 normal. No S3 or S4. No discernible murmur noted. Heart rate 94 bpm. Lungs reveal mild to moderate bilateral rhonchi. No wheezes. No crackles. Breath sounds equal bilaterally. Abdomen soft bowel sounds are heard. No masses or tenderness. Extremities are intact. No cyanosis clubbing or edema. Skin is without rash or lesion. Neurologic examination is brief but nonfocal. - Labs CBC & Chem 7: 08/16/21 05:21 08/16/21 05:21 Labs: Abnormal Lab Results - Last 24 Hours (Table) 08/16/21 08/16/21 Range/Units 05:21 05:21 RBC 3.95 L (4.10-5.20) X 10*6/uL MCV 100.0 H (80.0-97.0) fL MCH 32.4 H (27.0-32.0) pg Plt Count 519 H (140-440) X 10*3/uL Chloride 110 H (96-109) mmol/L Carbon Dioxide 15.9 L (20.0-27.5) mmol/L BUN 8.0 L (9.0-27.0) mg/dL Creatinine 0.5 L (0.6-1.5) mg/dL Total Bilirubin 0.20 L (0.30-1.20) mg/dL AST 48 H (13-35) U/L ALT 72 H (8-44) U/L Total Protein 5.8 L (6.2-8.2) g/dL Albumin 3.4 L (3.8-4.9) g/dL Albumin/Globulin Ratio 1.42 L (1.60-3.17) g/dL Microbiology - Last 24 Hours (Table) 08/15/21 04:37 Blood Culture - Preliminary Blood No Growth after 24 hours 08/15/21 04:39 Blood Culture - Preliminary Blood No Growth after 24 hours 08/15/21 Unknown Gram Stain - Preliminary Sputum Sputum Culture - Preliminary Assessment and Plan Assessment: Acute hypoxemic respiratory failure secondary to coronavirus associated pneumonia, and recent admission, between August 11 and August 13, for the same diagnosis. No evidence of pulmonary embolus him on CT angiogram. No evidence of lower extremity DVT. History of seizure disorder. History of gastroesophageal reflux disease. History of hyperlipidemia. History of dysphagia, secondary to esophageal strictures. Plan: Plan dated 08/15/2021. The patient was placed on Lovenox, Decadron, vitamin C, vitamin D3, and zinc. She is not a candidate for REM. She is not sick enough to receive FLORENCE. In addition, we added Ambien to her regimen. She's had difficulty sleeping at nighttime. We will continue to follow and make recommendations where appropriate. Prognosis is guarded. We will continue to follow this patient along with you. Plan dated 08/16/2021. The patient was placed on Lovenox, Decadron, vitamin C, vitamin D3, and zinc. He was not a candidate for REM. She is not sick enough to receive FLORENCE. Dopplers of the lower extremities were negative for DVT. CT angiogram did not reveal a pulmonary embolism. The patient now has been placed on room air. Saturations are between 90 and 92%. Additional recommendations and suggestions are forthcoming. Prognosis is guarded. We will follow along with you make recommendations where appropriate. Time with Patient: Less than 30
--- NOTE | 2021-08-16 16:51 | P.PN ---
Subjective Patient is a 60-year-old female with a known history of GERD, epilepsy, anxiety/depression previous history of cardiac catheterization presents to ER with complaints of cough congestion and shortness of breath. Patient states that she started having symptoms on 08/01/2021 and came to ER on 08/03/2021 and tested positive for COVID-19 infection. Patient has been having fevers at home at that time with little diarrhea. Patient has been diagnosed with bilateral Covid pneumonia, she was improving and she was discharged on 2 L oxygen via nasal cannula. However patient developed more weakness and was very tired, she could not do anything although she denies difficulty of walking. She continued to have respiratory symptoms, dyspnea got worse and she has some chest tightness. She was complaining of from coughing with yellow phlegm also with chest pain and abdominal pain which got worse with coughing re-add No fever. She describes her chest pain as pressure-like 4/10 comes with coughing. Also she complaining of from epigastric pain about 5/10 in severity which was been going on for about one to 2 weeks. Associated with poor appetite, poor oral intake but no diarrhea currently. Also she is having some stress incontinence whenever she calls which is an you for her but she denies dysuria No smoking or alcohol or illicit drugs multivitamin supplementation. Pulmonary is on board. Vitals are stable and patient is saturating 96-93% on room air Labs reviewed showing unremarkable CBC, INR is 1.0. D-dimer is elevated 2.5 BMP is unremarkable, liver enzymes slightly elevated. Troponin is negative less than 0.012. EKG: Normal sinus rhythm at [address]-T changes and QTC 458. CT of the chest: No pulmonary embolism, extensive bilateral pulmonary infiltrates consistent with multifocal pneumonia. Pulmonary infiltrates significantly increased compared to old exam 08/16/2020 Patient lying in bed not in distress, she looks somewhat weak and has malaise, she states that her breathing little better, still with coughing. She is having good appetite and eating 50-75% of her meal but deposits are still have some loose stools about twice per day with possible blood in it, therefore we will check occult blood in the stool. She remains on room air with oxygen saturation 93-93%, labs looks stable except for mildly elevated liver enzymes secondary to Covid. Blood culture and sputum culture are requested and pending. Patient remains on dexamethasone, vitamin C, D and zinc. Discontinue IV fluids of D5 normal saline And we will check FOBT Objective - Vital Signs Vital signs: Vital Signs Temp 98.1 F 08/16/21 10:00 Pulse 94 08/16/21 10:00 Resp 18 08/16/21 10:00 BP 133/70 08/16/21 10:00 Pulse Ox 92 L 08/16/21 10:00 Intake & Output 08/15/21 08/16/21 08/16/21 18:59 06:59 18:59 Weight 94.347 kg Other: Voiding Method Toilet Toilet # Voids 4 - Exam -GENERAL: The patient is alert and oriented x3, not in any acute distress. Well developed, well nourished. Generally weak with malaise HEENT: Pupils are round and equally reacting to light. EOMI. No scleral icterus. No conjunctival pallor. Normocephalic, atraumatic. No pharyngeal erythema. No thyromegaly. CARDIOVASCULAR: S1 and S2 present. No murmurs, rubs, or gallops. PULMONARY: Chest is clear to auscultation, no wheezing or crackles. ABDOMEN: Soft, nontender, nondistended, normoactive bowel sounds. No palpable organomegaly. MUSCULOSKELETAL: No joint swelling or deformity. EXTREMITIES: No cyanosis, clubbing, or pedal edema. NEUROLOGICAL: Gross neurological examination did not reveal any focal deficits. SKIN: No rashes. no petechiae. - Labs CBC & Chem 7: 08/16/21 05:21 08/16/21 05:21 Labs: Abnormal Lab Results - Last 24 Hours (Table) 08/16/21 08/16/21 Range/Units 05:21 05:21 RBC 3.95 L (4.10-5.20) X 10*6/uL MCV 100.0 H (80.0-97.0) fL MCH 32.4 H (27.0-32.0) pg Plt Count 519 H (140-440) X 10*3/uL Chloride 110 H (96-109) mmol/L Carbon Dioxide 15.9 L (20.0-27.5) mmol/L BUN 8.0 L (9.0-27.0) mg/dL Creatinine 0.5 L (0.6-1.5) mg/dL Total Bilirubin 0.20 L (0.30-1.20) mg/dL AST 48 H (13-35) U/L ALT 72 H (8-44) U/L Total Protein 5.8 L (6.2-8.2) g/dL Albumin 3.4 L (3.8-4.9) g/dL Albumin/Globulin Ratio 1.42 L (1.60-3.17) g/dL Microbiology - Last 24 Hours (Table) 08/15/21 04:37 Blood Culture - Preliminary Blood No Growth after 24 hours 08/15/21 04:39 Blood Culture - Preliminary Blood No Growth after 24 hours 08/15/21 Unknown Gram Stain - Preliminary Sputum Sputum Culture - Preliminary Assessment and Plan Assessment: Worsening Bilateral Covid pneumonia, Patient was tested positive on 08/03/2021. Symptoms since 07/31/2021. Not vaccinated. CTA showed worsening pneumonia Increased inflammatory markers History of GERD History of Anxiety History of esophageal stricture and dysphagia. History of epilepsy Plan: This is a pleasant 60 years old female who presents with bilateral covid pneumonia Continue with vitamin C, vitamin D and zinc. Continue with dexamethasone. Robitussin Pulmonary consult Follow-up sputum and blood Check a bladder scan Labs and medication were reviewed.. Continue same treatment. Continue with symptomatic treatment. Resume home medication. Monitor lytes and vitals. DVT and GI prophylaxis. Further recommendations depends on the clinical course of the patient DVT prophylaxis: Subcutaneous Lovenox GI Prophylaxis: Pepcid PT/OT: Pending Prognosis is guarded
[2021-08-16] MEDS: LORazepam 2 MG/ML INJ IV PRN (18:04)
[2021-08-16] MEDS: ZOLPIDEM 10 MG TAB PO PRN (20:37)
[2021-08-16] MEDS: hydrOXYzine HCL 10 MG TAB PO SCH (20:37)
[2021-08-17] MEDS: SODIUM CHLORIDE 0.9% 1,000 ML IV SCH ×2 (04:19→14:18)
[2021-08-17] MEDS: GABAPENTIN 400 MG CAP PO SCH (07:16)
[2021-08-17] MEDS: DEXAMETHASONE SOD PHOSPHATE 10 MG/ML 1 ML VIAL IVP SCH (07:16)
[2021-08-17] MEDS: ENOXAPARIN 40 MG/0.4 ML SYRINGE SQ SCH (07:16)
[2021-08-17] MEDS: ASPIRIN 81 MG PO SCH (07:16)
[2021-08-17] MEDS: ZINC SULFATE 220 MG CAP PO SCH (07:16)
[2021-08-17] MEDS: CHOLECALCIFEROL 25 MCG (1000 IU) TABLET PO SCH (07:16)
[2021-08-17] MEDS: ASCORBIC ACID 500 MG TAB PO SCH (07:16)
[2021-08-17] MEDS: LORazepam 2 MG/ML INJ IV PRN (07:17)
[2021-08-17] MEDS: carBAMazepine 200 MG TAB PO SCH (07:21)
--- NOTE | 2021-08-17 12:46 | P.PN ---
Subjective Progress Note Date: 08/17/21 60-year-old female who was recently inpatient here between August 11 of August 13, with coronavirus pneumonia. The patient was discharged home on the , on vitamins. She came back to the emergency room complaining of chest pain and shortness of breath. The patient had a CAT scan which did not reveal a PE, but did show diffuse bilateral infiltrates. Her complaints included chest pain, shortness of breath, weakness, nausea, vomiting, poor oral intake, dehydration, and generally just not feeling well. She was seen in the ER, room 7. She is on 2 L nasal cannula. She's getting saline at KVO. The patient qualifies for Decadron, Lovenox, vitamins, and because she's having difficulty with sleep, we will add some Ambien. White count 8.7, hemoglobin 13.8, hematocrit 40.4, and platelet count 577,000. D-dimer is 2.53. Sodium 139, potassium 3.7, chlorides 108, CO2 22, anion gap 9, BUN 14, creatinine 0.55. AST 64 ALT 85. Coronavirus testing was again positive. Ultrasound of bilateral lower extremities, was negative. CT angiogram did not show pulmonary embolism, but did show diffuse groundglass opacities. Progress note dated 08/16/2021. 60-year-old female who was in the hospital here, between August 11 in August 13, with coronavirus pneumonia. She was discharged home on August 13, and came back to the emergency room complaining of shortness of breath. She did not have a pulmonary embolism on CT angiogram, but the CT did show diffuse bilateral infiltrates. The patient was seen in the emergency room yesterday, and we thought she qualifies for Decadron, Lovenox, and vitamins. In addition, we will do some Ambien for her, she was complaining of insomnia. Currently, she is on room air. Saturations are 92%. She's not receiving any IV fluids. Current labs include a white count of 5.8, he will been 12.8, hematocrit 39.5, and a platelet count of 519,000. Sodium 141, potassium 3.7, chlorides 110, CO2 16, anion gap 15, BUN 8, creatinine 0.5. AST was 48 with an ALT of 72. Dopplers of the lower extremities were negative for DVT. Evaluation of 08/17/2021, the patient is complaining of some limited stuffy nose. No major respiratory difficulties. The computed tomography scan of the chest that was done on 08/15/2021 showed no evidence of any pulmonary embolism. It showed inflammatory changes and infiltrates bilaterally more so in the lower lobes bilaterally. The patient has a dry cough. No significant sputum production. No chest pain. No pleurisy or hemoptysis. Doppler of the lower extremity was also negative for DVT. The patient has no other new complaints did not nausea vomiting or diarrhea abdominal pain. No chest pain. Objective - Vital Signs Vital signs: Vital Signs Temp 98.4 F 08/17/21 10:00 Pulse 98 08/17/21 10:00 Resp 20 08/17/21 10:00 BP 135/83 08/17/21 10:00 Pulse Ox 92 L 08/17/21 10:00 Intake & Output 08/16/21 08/17/21 08/17/21 18:59 06:59 18:59 Intake Total 5080 Balance 5080 Intake: Intake, IV Titration 1000 Amount Dextrose 5%-0.9% NaCl 1, 1000 000 ml @ 75 mls/hr IV . [id number] EMPERATRIZ Rx#:[id number] Oral 4080 Other: Voiding Method Toilet # Voids 3 2 # Bowel Movements 1 - Exam No acute distress, oriented 3. Room air saturation is 93%. HEENT examination is grossly unremarkable. Neck supple. Full range of motion. No adenopathy thyromegaly or neck vein distention. Cardiovascular examination reveals regular rhythm rate. S1-S2 normal. No S3 or S4. No discernible murmur noted. Heart rate 94 bpm. Lungs reveal mild to moderate bilateral rhonchi. No wheezes. No crackles. Breath sounds equal bilaterally. Abdomen soft bowel sounds are heard. No masses or tenderness. Extremities are intact. No cyanosis clubbing or edema. Skin is without rash or lesion. Neurologic examination is brief but nonfocal.she is on room air oxygen. - Labs CBC & Chem 7: 08/16/21 05:21 08/16/21 05:21 Labs: Microbiology - Last 24 Hours (Table) 08/15/21 Unknown Gram Stain - Final Sputum Sputum Culture - Final 08/15/21 04:37 Blood Culture - Preliminary Blood No Growth after 48 hours 08/15/21 04:39 Blood Culture - Preliminary Blood No Growth after 48 hours Assessment and Plan Plan: Acute hypoxemic respiratory failure secondary to coronavirus associated pneumonia, and recent admission, between August 11 and August 13, for the same diagnosis. No evidence of pulmonary embolus him on CT angiogram. No evidence of lower extremity DVT. History of seizure disorder. History of gastroesophageal reflux disease. History of hyperlipidemia. History of dysphagia, secondary to esophageal strictures. Plan: Can be discharged home from the pulmonary standpoint Patient is on room air oxygen Complete a course of Decadron follow-up with the primary care physician.
[2021-08-17] MEDS ORDERED: LORazepam 0.5 MG TAB PO PRN (14:26)
[2021-08-17 14:36] VITALS: BP 156/91; PULSE 104; RESP 19; TEMP 98.3
[2021-08-17 15:36] LABS: HCT 44.9 % (34.0-46.0); HGB 14.1 gm/dL (11.4-16.0); Hypochromasia Moderate; MCH 33.5 pg (25.0-35.0); MCHC 31.4 g/dL (31.0-37.0); Macrocytosis Moderate; Mean Platelet Volume 7.5; Platelet Count 620 k/uL (150-450); RBC 4.22 m/uL (3.80-5.40); RDW 12.6 % (11.5-15.5)
[2021-08-17 15:37] LABS: MCV 106.5 fL (80.0-100.0)
--- NOTE | 2021-08-17 22:28 | P.DS ---
Providers Date of admission: 08/15/21 08:23 Attending physician: Kristan Ornelas Consults: 08/15/21 07:32 Consult Physician Routine Consulting Provider: Ramiro Rose Consult Reason/Comments: worsening covid pna Do you want consulting provider notified?: Yes Primary care physician: Yasir Hood Hospital Course: Diagnoses Worsening Bilateral Covid pneumonia, Patient was tested positive on 08/03/2021. Symptoms since 07/31/2021. Not vaccinated. CTA showed worsening pneumonia Increased inflammatory markers History of GERD History of Anxiety History of esophageal stricture and dysphagia. History of epilepsy Hospital course: Patient is a 60-year-old female with a known history of GERD, epilepsy, anxiety/depression previous history of cardiac catheterization presents to ER with complaints of cough congestion and shortness of breath. Patient states that she started having symptoms on 08/01/2021 and came to ER on 08/03/2021 and tested positive for COVID-19 infection. Patient has been having fevers at home at that time with little diarrhea. Patient has been diagnosed with bilateral Covid pneumonia, she was improving and she was discharged on 2 L oxygen via nasal cannula. However patient developed more weakness and was very tired, she could not do anything although she denies difficulty of walking. After discharge patient remains concerned and anxious as her some of the respiratory symptoms persist like dyspnea with chest tightness and coughing before she decided to come to the emergency room. Chest x-ray on admission showed some worsening of her lung infiltrate. Patient was admitted to the hospital and treated with IV fluid, dexamethasone, vitamin C, D and zinc. Patient was evaluated and followed closely by pulmonary service. Patient remains on room air and over the disc discharge her saturation is 93% on room air. Patient's symptoms significantly improved she still have some occasional coughing. No significant dyspnea. She denies chest pain. She was still somewhat anxious but when I talk to her this morning and a short her for her that her leg is working sufficiently she verbalized understanding and agreed with treatment plan. And she agrees to go home today and follow-up as an outpatient. On the day of discharge she denies any other GI or urinary symptoms. She has some stress incontinence with coughing but her bladder scan with post void residual was only 26 mL. Patient reports some of blood in her stool but she told me she had colonoscopy with Dr. Bautista about 3 months ago which was negative except for simple polyp. 2. Hemoglobin today shows actually improving and her hemoglobin 12 up to 14, patient referred for outpatient with Dr. Bautista with appointment more for her in 1 week and she agrees. Patient also evaluated by pulmonology service and cleared her for discharge today. Patient does not need home oxygen upon discharge Problems and management plan were discussed with the patient and he verbalized understanding and acceptance Patient was found stable and can be discharged home however he needs follow-up as an outpatient. Patient was instructed to follow up with PCP Dr. Hood within one week and patient agrees Patient was instructed to follow up with her assessment counselor Dr. young in 2 weeks and she agrees. Also to follow up with Dr. Bautista as above Physical exam Gen: patient is a AAOx3, no distress CVS: S1-S2, RRR, no murmur Lungs: B/L CTA, no wheezing Abdomen: soft, no distention, no tenderness, positive bowel sounds Extremity: no leg edema or induration Time spent more than 35 minutes Patient Condition at Discharge: Fair Plan - Discharge Summary New Discharge Prescriptions: Continue Gabapentin [Neurontin] 400 mg PO BID carBAMazepine [TEGretol] 400 mg PO Q12H Aspirin EC [Ecotrin Low Dose] 81 mg PO DAILY Acetaminophen Tab [Tylenol] 1,000 mg PO Q6HR PRN PRN Reason: Pain Or Fever > 100.5 hydrOXYzine HCL 10 mg PO HS Loratadine [Claritin] 10 mg PO DAILY Rosuvastatin Calcium 20 mg PO HS Zinc Sulfate [Orazinc] 220 mg PO DAILY #30 cap LORazepam 0.5 mg PO BID PRN PRN Reason: Anxiety Dexamethasone [Decadron] 6 mg PO DAILY 7 Days #7 tablet Ascorbic Acid [Vitamin C] 500 mg PO DAILY #30 tab Cholecalciferol [Vitamin D3 (25 Mcg = 1000 Iu)] 50 mcg PO DAILY #60 tab Discharge Medication List Gabapentin [Neurontin] 400 mg PO BID 02/20/15 [History] carBAMazepine [TEGretol] 400 mg PO Q12H 02/20/15 [History] Aspirin EC [Ecotrin Low Dose] 81 mg PO DAILY 12/20/17 [History] Acetaminophen Tab [Tylenol] 1,000 mg PO Q6HR PRN 08/11/21 [History] LORazepam 0.5 mg PO BID PRN 08/11/21 [History] Loratadine [Claritin] 10 mg PO DAILY 08/11/21 [History] Rosuvastatin Calcium 20 mg PO HS 08/11/21 [History] hydrOXYzine HCL 10 mg PO HS 08/11/21 [History] Ascorbic Acid [Vitamin C] 500 mg PO DAILY #30 tab 08/17/21 [Rx] Cholecalciferol [Vitamin D3 (25 Mcg = 1000 Iu)] 50 mcg PO DAILY #60 tab 08/17/21 [Rx] Dexamethasone [Decadron] 6 mg PO DAILY 7 Days #7 tablet 08/17/21 [Rx] Zinc Sulfate [Orazinc] 220 mg PO DAILY #30 cap 08/17/21 [Rx] Follow up Appointment(s)/Referral(s): Yasir Hood MD [Primary Care Provider] - 1-2 days Ramiro Rose DO [Doctor of Osteopathic Medicine] - 2 Weeks (Sorority Supervisor) Gerald Bautista DO [Doctor of Osteopathic Medicine] - 08/24/21 3:45 pm Patient Instructions/Handouts: Coronavirus Disease 2019 (COVID-19) Activity/Diet/Wound Care/Special Instructions: Heart healthy diet, low carbohydrate diet, 1600 kcal per day Activity is restricted till you see your doctor Discharge Disposition: HOME SELF-CARE
== END 2021-08-17 16:23 | disposition home or self-care (01) | DRG 177 ==
LOC: EC 04:12 → 4SSUR 06:15 → OBSVTOIN 08:23 → 4SSUR 08:53
PROVIDERS: ADMIT Hospitalist; ATTEND Hospitalist
DX: U07.1 COVID-19 (principal); J12.82 Pneumonia due to coronavirus disease 2019; J96.01 Acute respiratory failure with hypoxia; G40.909 Epilepsy, unspecified, not intractable, without status epilepticus; F32.A Depression, unspecified; F41.9 Anxiety disorder, unspecified; N39.3 Stress incontinence (female) (male); K21.9 Gastro-esophageal reflux disease without esophagitis; E78.5 Hyperlipidemia, unspecified; E86.0 Dehydration; G47.00 Insomnia, unspecified; R74.8 Abnormal levels of other serum enzymes; G89.29 Other chronic pain; M25.551 Pain in right hip; M79.604 Pain in right leg; Z79.82 Long term (current) use of aspirin; Z79.899 Other long term (current) drug therapy; Z90.49 Acquired absence of other specified parts of digestive tract; Z87.19 Personal history of other diseases of the digestive system; Z90.710 Acquired absence of both cervix and uterus; Z87.42 Personal history of other diseases of the female genital tract; Z98.51 Tubal ligation status; Z87.2 Personal history of diseases of the skin and subcutaneous tissue; Z87.39 Personal history of other diseases of the musculoskeletal system and connective tissue; Z98.890 Other specified postprocedural states; Z88.5 Allergy status to narcotic agent; Z82.49 Family history of ischemic heart disease and other diseases of the circulatory system; Z82.5 Family history of asthma and other chronic lower respiratory diseases; Z82.0 Family history of epilepsy and other diseases of the nervous system; Z83.79 Family history of other diseases of the digestive system; Z82.79 Family history of other congenital malformations, deformations and chromosomal abnormalities; Z84.1 Family history of disorders of kidney and ureter
CPT/HCPCS: 36415; 71275; 80053; 83605; 83615; 83735; 83880; 84100; 84484; 85025; 85027; 85379; 85610; 85730; 86140; 87040; 87070; 87205; 87635; 93005; 93970; 96374; 96375; 96376; 99285

== ENCOUNTER → 2022-10-19 | Outpatient (CLI) | payer MEDICARE ==
--- NOTE | 2022-10-20 10:19 | MM ---
Reason for Exam: Screening (asymptomatic). Last mammogram was performed 1 year(s) and 3 month(s) ago. Patient History: Menarche at age 11. First Full-Term at age 18. Hysterectomy at age 29. Postmenopausal. 1990, Benign Excisional Biopsy on the left side. Risk Values: [place] 5 year model risk: 1.3%. NCI Lifetime model risk: 5.9%. Prior Study Comparison: 04/25/2019 Bilateral Screening Mammogram, [facility]. 07/07/2020 Bilateral Screening Mammogram, [facility]. 07/15/2021 Bilateral Screening Mammogram, [facility]. Tissue Density: The breast tissue is heterogeneously dense. This may lower the sensitivity of mammography. Analyzed By CAD. Overall Assessment: Benign, BI-RAD 2 Management: Screening Mammogram of both breasts in 1 year. Electronically signed and approved by: Wagner Rodriguez M.D.
== END | disposition home or self-care (01) ==
LOC: RADMAMWWP 09:37
PROVIDERS: ATTEND Family Medicine
DX: Z12.31 Encounter for screening mammogram for malignant neoplasm of breast (principal); Z78.0 Asymptomatic menopausal state
CPT/HCPCS: 77063; 77067

== ENCOUNTER 2023-06-27 06:34 | Emergency (ER) | payer MEDICARE ==
[2023-06-27] MEDS ORDERED: SODIUM CHLORIDE 0.9% 1,000 ML IV STA (06:43)
--- NOTE | 2023-06-27 06:48 | ED ---
Abdominal Pain HPI - General Chief Complaint: Abdominal Pain Stated Complaint: Possible Bowel Blockage Time Seen by Provider: 06/27/23 06:40 Source: patient, RN notes reviewed Mode of arrival: ambulatory Limitations: no limitations - History of Present Illness Initial Comments: 62-year-old female presents emergency Department which he went of abdominal p ain. Patient states that she's had increase abdominal pain last 2 days or so. Patient has a history of colon resection, appendectomy, cholecystectomy. Patient states that she has very minimal stool output and she is concerned about possible structure that she's had in the past. She reports no fevers no chest pain or shortness breath she does admit to nausea and vomiting. Nothing makes the pain feel better or worse. - Related Data Home Medications Medication Instructions Recorded Confirmed Gabapentin [Neurontin] 400 mg PO BID 02/20/15 08/15/21 carBAMazepine [TEGretol] 400 mg PO Q12H 02/20/15 08/15/21 Aspirin EC [Ecotrin Low Dose] 81 mg PO DAILY 12/20/17 08/15/21 Acetaminophen Tab [Tylenol] 1,000 mg PO Q6HR PRN 08/11/21 08/15/21 LORazepam 0.5 mg PO BID PRN 08/11/21 08/15/21 Loratadine [Claritin] 10 mg PO DAILY 08/11/21 08/15/21 Rosuvastatin Calcium 20 mg PO HS 08/11/21 08/15/21 hydrOXYzine HCL 10 mg PO HS 08/11/21 08/15/21 Previous Rx's Medication Instructions Recorded Ascorbic Acid [Vitamin C] 500 mg PO DAILY #30 tab 08/17/21 Cholecalciferol [Vitamin D3 (25 50 mcg PO DAILY #60 tab 08/17/21 Mcg = 1000 Iu)] Zinc Sulfate [Orazinc] 220 mg PO DAILY #30 cap 08/17/21 dexAMETHasone [Decadron] 6 mg PO DAILY 7 Days #7 tablet 08/17/21 Amoxic-Pot Clav 875-125Mg 1 tab PO Q12HR #20 tab 06/27/23 [Augmentin 875-125] Allergies Allergy/AdvReac Type Severity Reaction Status Date / Time morphine Allergy Itching Verified 06/27/23 06:38 Review of Systems ROS Statement: Those systems with pertinent positive or pertinent negative responses have been documented in the HPI. ROS Other: All systems not noted in ROS Statement are negative. Past Medical History Past Medical History: Chest Pain / Angina, GERD/Reflux, Musculoskeletal Disorder Additional Past Medical History / Comment(s): EPILEPSY-LAST SEIZURE APPROX 8 YRS,CHRONIC PAIN TO ABD RADIATING RT HIP AND LEG.-COMES AND G0ES. HAS HAD TROUBLE SWALLOWING SINCE THE LAST 6 MONTHS History of Any Multi-Drug Resistant Organisms: None Reported Past Surgical History: Appendectomy, Cholecystectomy, Heart Catheterization, H ernia Repair, Hysterectomy, Tubal Ligation Additional Past Surgical History / Comment(s): RT INGUINAL HERNIA SURGERY W/ MESH, LT INGUINAL HERNIA REPAIR, BLADDER SLING,LT BREAST BX,APRIL KNEE ARTHROSCOPY,RT ANKLE ARTHROSCOPY, NERVE REMOVED RT FOOT, esophageal strictures Past Anesthesia/Blood Transfusion Reactions: Previous Problems w/ Anesthesia, Motion Sickness Additional Past Anesthesia/Blood Transfusion Reaction / Comment(s): LOW B/P AND PAIN CONTROL AFTER SURGERY Past Psychological History: Anxiety, Depression Smoking Status: Never smoker Past Alcohol Use History: None Reported Past Drug Use History: None Reported - Past Family History Father Family Medical History: Myocardial Infarction (UT) Additional Family Medical History / Comment(s): AT AGE 75 WITH UT, ABDOMINAL ANEURYSM,EMPHYSEMA, HEART PROBLEMS Mother Family Medical History: Dementia, GI Bleed Additional Family Medical History / Comment(s): WITH GI BLEED AT AGE 73,ALHEIMER'S DISEASE Brother(s) Family Medical History: Renal Disease Additional Family Medical History / Comment(s): MULTIPLE CONGENITAL SPINA BIFIDA General Exam Limitations: no limitations General appearance: alert, in no apparent distress Head exam: Present: atraumatic, normocephalic, normal inspection Eye exam: Present: normal appearance, PERRL, EOMI. Absent: scleral icterus, conjunctival injection, periorbital swelling ENT exam: Present: normal exam, normal oropharynx, mucous membranes moist Neck exam: Present: normal inspection. Absent: tenderness, meningismus, lymphadenopathy Respiratory exam: Present: normal lung sounds bilaterally. Absent: respiratory distress, wheezes, rales, rhonchi, stridor Cardiovascular Exam: Present: regular rate, normal rhythm, normal heart sounds. Absent: systolic murmur, diastolic murmur, rubs, gallop, clicks GI/Abdominal exam: Present: soft, tenderness, normal bowel sounds. Absent: distended, guarding, rebound, rigid Back exam: Absent: CVA tenderness (R), CVA tenderness (L) Course Vital Signs 06/27/23 06:35 Temperature 98.4 F Pulse Rate 82 Respiratory 18 Rate Blood Pressure 123/72 O2 Sat by Pulse 97 Oximetry Medical Decision Making - Medical Decision Making Was pt. sent in by a medical professional or institution (, [facility], [facility], urgent care, hospital, or [facility]...) When possible be specific @ -No Did you speak to anyone other than the patient for history (EMS, parent, family, police, friend...)? What history was obtained from this source @ -No Did you review nursing and triage notes (agree or disagree)? Why? @ -I reviewed and agree with nursing and triage notes Were old charts reviewed (outside hosp., previous admission, EMS record, old EKG, old radiological studies, urgent care reports/EKG's, [facility] records)? Report findings @ -No old charts were reviewed Differential Diagnosis (chest pain, altered mental status, abdominal pain women, abdominal pain men, vaginal bleeding, weakness, fever, dyspnea, syncope, headache, dizziness, GI bleed, back pain, seizure, CVA, palpatations, mental health, musculoskeletal)? @ -Differential Abdominal Pain Women: Appendicitis, Cholecystitis, diverticulosis, ischemic bowel, pancreatitis, hepatitis, UTI, gastroenteritis, AAA, incarcerated hernia, bowel obstruction, constipation, inflammatory bowel, hepatitis, peptic ulcer disease, splenic infarction, perforated viscus, vulvitis, ovarian torsion, PID, kidney stone, placenta abruption, this is not meant to be an all-inclusive list EKG interpreted by me (3pts min.). @ -None X-rays interpreted by me (1pt min.). @ -None done CT interpreted by me (1pt min.). @ -CT abdomen pelvis shows evidence of diverticulitis no obstruction U/S interpreted by me (1pt. min.). @ -None done What testing was considered but not performed or refused? (CT, X-rays, U/S, labs)? Why? @ -None What meds were considered but not given or refused? Why? @ -None Did you discuss the management of the patient with other professionals (professionals i.e. , [facility], [facility], lab, RT, psych nurse, mental health social worker, gravity prospecting operator helper, te acher, engineering officer, correctional casework specialist)? Give summary @ -No Was smoking cessation discussed for >3mins.? @ -No Was critical care preformed (if so, how long)? @ -No Were there social determinants of health that impacted care today? How? (Homelessness, low income, unemployed, alcoholism, drug addiction, transportation, low edu. Level, literacy, decrease access to med. care, long-term, rehab)? @ -No Was there de-escalation of care discussed even if they declined (Discuss DNR or withdrawal of care, Hospice)? DNR status @ -No What co-morbidities impacted this encounter? (DM, HTN, Smoking, COPD, CAD, Cancer, CVA, ARF, Chemo, Hep., AIDS, mental health diagnosis, sleep apnea, morbid obesity)? @ -Bowel obstruction, multiple abdominal surgeries Was patient admitted / discharged? Hospital course, mention meds given and route, prescriptions, significant lab abnormalities, going to OR and other pertinent info. @ -Discharge patient has evidence of diverticulitis on CT. Laboratory studies essentially unremarkable. Patient discharged with clear liquid diet, oral antibiotics return parameters discussed. Undiagnosed new problem with uncertain prognosis? @ -No Drug Therapy requiring intensive monitoring for toxicity (Heparin, Nitro, Insulin, Cardizem)? @ -No Were any procedures done? @ -No Diagnosis/symptom? @ -Diverticulitis Acute, or Chronic, or Acute on Chronic? @ -Acute Uncomplicated (without systemic symptoms) or Complicated (systemic symptoms)? @ -Uncomplicated Side effects of treatment? @ -No Exacerbation, Progression, or Severe Exacerbation? @ -No Poses a threat to life or bodily function? How? (Chest pain, USA, UT, pneumonia, PE, COPD, DKA, ARF, appy, cholecystitis, CVA, Diverticulitis, Homicidal, Suicidal, threat to staff... and all critical care pts) @ -Yes low risk patient has diverticulitis - Lab Data Result diagrams: 06/27/23 06:55 06/27/23 06:55 Lab Results 06/27/23 06/27/23 06/27/23 Range/Units 06:55 06:55 06:55 WBC 6.0 (3.8-10.6) k/uL RBC 4.40 (3.80-5.40) m/uL Hgb 14.8 (11.4-16.0) gm/dL Hct 43.2 (34.0-46.0) % MCV 98.2 (80.0-100.0) fL MCH 33.6 (25.0-35.0) pg MCHC 34.2 (31.0-37.0) g/dL RDW 12.0 (11.5-15.5) % MPV 7.9 PT (10.0-12.5) sec INR (<1.2) APTT (22.0-30.0) sec Sodium 140 (137-145) mmol/L Potassium 4.6 (3.5-5.1) mmol/L Chloride 105 (98-107) mmol/L Carbon Dioxide 23 (22-30) mmol/L Anion Gap 12 mmol/L BUN 9 (7-17) mg/dL Creatinine 0.66 (0.52-1.04) mg/dL Est GFR (CKD-EPI)AfAm >90 (>60 ml/min/1.73 sqM) Est GFR (CKD-EPI)NonAf >90 (>60 ml/min/1.73 sqM) Glucose 121 H (74-99) mg/dL Plasma Lactic Acid Brian 1.1 (0.7-2.0) mmol/L Calcium 9.9 (8.4-10.2) mg/dL Total Bilirubin 0.7 (0.2-1.3) mg/dL AST 29 (14-36) U/L ALT 23 (4-34) U/L Alkaline Phosphatase 87 (38-126) U/L Total Protein 7.5 (6.3-8.2) g/dL Albumin 4.6 (3.5-5.0) g/dL Lipase 61 (23-300) U/L 06/27/23 Range/Units 07:42 WBC (3.8-10.6) k/uL RBC (3.80-5.40) m/uL Hgb (11.4-16.0) gm/dL Hct (34.0-46.0) % MCV (80.0-100.0) fL MCH (25.0-35.0) pg MCHC (31.0-37.0) g/dL RDW (11.5-15.5) % MPV PT 10.0 (10.0-12.5) sec INR 0.9 (<1.2) APTT 24.2 (22.0-30.0) sec Sodium (137-145) mmol/L Potassium (3.5-5.1) mmol/L Chloride (98-107) mmol/L Carbon Dioxide (22-30) mmol/L Anion Gap mmol/L BUN (7-17) mg/dL Creatinine (0.52-1.04) mg/dL Est GFR (CKD-EPI)AfAm (>60 ml/min/1.73 sqM) Est GFR (CKD-EPI)NonAf (>60 ml/min/1.73 sqM) Glucose (74-99) mg/dL Plasma Lactic Acid Brian (0.7-2.0) mmol/L Calcium (8.4-10.2) mg/dL Total Bilirubin (0.2-1.3) mg/dL AST (14-36) U/L ALT (4-34) U/L Alkaline Phosphatase (38-126) U/L Total Protein (6.3-8.2) g/dL Albumin (3.5-5.0) g/dL Lipase (23-300) U/L Disposition Clinical Impression: Diverticulitis Disposition: HOME SELF-CARE Condition: Stable Instructions (If sedation given, give patient instructions): Diverticulitis (ED), Diverticulitis Diet (ED) Additional Instructions: Please return to the Emergency Department if symptoms worsen or any other concerns. Prescriptions: Amoxic-Pot Clav 875-125Mg [Augmentin 875-125] 1 tab PO Q12HR #20 tab Is patient prescribed a controlled substance at d/c from ED?: No Referrals: Yasir Hood MD [Primary Care Provider] - 1-2 days Time of Disposition: 08:27
[2023-06-27 07:09] LABS: Basophils % (A) 0 %; Eosinophils # (A) 0.2 k/uL (0-0.7); Eosinophils % (A) 3 %; HCT 43.2 % (34.0-46.0); HGB 14.8 gm/dL (11.4-16.0); Lymphocytes # (A) 0.9 k/uL (1.0-4.8); Lymphocytes % (A) 15 %; MCH 33.6 pg (25.0-35.0); MCHC 34.2 g/dL (31.0-37.0); MCV 98.2 fL (80.0-100.0); Mean Platelet Volume 7.9; Monocytes # (A) 0.4 k/uL (0-1.0); Monocytes % (A) 6 %; Neutrophils # (A) 4.5 k/uL (1.3-7.7); Neutrophils % (A) 75 %
[2023-06-27 07:22] LABS: ALT 23 U/L (4-34); AST 29 U/L (14-36); African American GFR (CKD) >90 (>60 ml/min/1.73 sqM); Albumin 4.6 g/dL (3.5-5.0); Alkaline Phosphatase 87 U/L (38-126); Anion Gap 12 mmol/L; Blood Urea Nitrogen 9 mg/dL (7-17); Calcium 9.9 mg/dL (8.4-10.2); Carbon Dioxide 23 mmol/L (22-30); Chloride 105 mmol/L (98-107); Glucose 121 mg/dL (74-99); Lipase 61 U/L (23-300); Non-African American GFR(CKD) >90 (>60 ml/min/1.73 sqM); Potassium 4.6 mmol/L (3.5-5.1); Sodium 140 mmol/L (137-145); Total Bilirubin 0.7 mg/dL (0.2-1.3); Total Protein 7.5 g/dL (6.3-8.2)
--- NOTE | 2023-06-27 07:35 | CT ---
EXAMINATION TYPE: CT abdomen pelvis w con DATE OF EXAM: 06/27/2023 COMPARISON: 04/12/2018 HISTORY: abdominal pain. CT DLP: 1399.8 mGycm CONTRAST: CT scan of the abdomen and pelvis is performed without Oral Contrast and with IV Contrast, patient in jected with 100mL mL of Isovue 300. FINDINGS: LUNG BASES-: No visible nodule. No infiltrate. LIVER/GB: The gallbladder surgically absent. Mild changes of hepatic steatosis. No space occupying hepatic lesion. Biliary tree is of normal caliber. PANCREAS: No inflammation. No distinct mass. SPLEEN: No splenic enlargement. No lesion seen. ADRENALS: No nodule. No thickening. KIDNEYS/BLADDER: No hydronephrosis. No nephrolithiasis. No distinct renal mass. Urinary bladder g rossly unremarkable. BOWEL: Postoperative changes of appendectomy. Surgical anastomotic change distal small bowel. There i s mild inflammatory change surrounding the sigmoid colon with mild wall thickening felt to reflect mi ld acute appendicitis without complicating factor such as perforation or abscess. GENITAL ORGANS: Hysterectomy changes seen. No evidence for adnexal or ovarian mass. LYMPH NODES: No greater than 1cm abdominal or pelvic lymph nodes are appreciated. AORTA: No significant abnormality. OSSEOUS STRUCTURES: No significant abnormality is seen. OTHER: No significant additional abnormality is seen. IMPRESSION: 1. Mild uncomplicated acute sigmoid diverticulitis.
[2023-06-27 07:57] LABS: INR 0.9 (<1.2); Partial Thromboplastin Time 24.2 sec (22.0-30.0)
[2023-06-27 08:58] VITALS: BP 134/78; PULSE 78; RESP 16; TEMP 98
[2023-06-27 09:52] LABS: Platelet Count 84 k/uL (150-450)
== END 2023-06-27 08:38 | disposition home or self-care (01) ==
LOC: EC 06:34
DX: K57.32 Diverticulitis of large intestine without perforation or abscess without bleeding (principal); G40.909 Epilepsy, unspecified, not intractable, without status epilepticus; F41.9 Anxiety disorder, unspecified; F32.A Depression, unspecified; Z79.899 Other long term (current) drug therapy; Z88.5 Allergy status to narcotic agent; Z90.49 Acquired absence of other specified parts of digestive tract
CPT/HCPCS: 80053; 83605; 83690; 85025; 85610; 85730; 74177; 99284; 96360; Q9967; 36415

== ENCOUNTER 2023-07-03 08:42 | Emergency (ER) | payer MEDICARE ==
[2023-07-03] MEDS ORDERED: SODIUM CHLORIDE 0.9% 1,000 ML IV STA (09:14)
[2023-07-03 09:54] LABS: Basophils % (A) 1 %; Eosinophils # (A) 0.2 k/uL (0-0.7); Eosinophils % (A) 3 %; HGB 14.3 gm/dL (11.4-16.0); Lymphocytes # (A) 1.2 k/uL (1.0-4.8); Lymphocytes % (A) 24 %; MCH 33.8 pg (25.0-35.0); MCHC 34.8 g/dL (31.0-37.0); MCV 97.3 fL (80.0-100.0); Mean Platelet Volume 7.3; Monocytes # (A) 0.2 k/uL (0-1.0); Monocytes % (A) 5 %; Neutrophils # (A) 3.1 k/uL (1.3-7.7); Neutrophils % (A) 66 %; RBC 4.22 m/uL (3.80-5.40); RDW 11.9 % (11.5-15.5); WBC 4.8 k/uL (3.8-10.6)
[2023-07-03 09:57] VITALS: RESP 18
[2023-07-03 09:59] LABS: Platelet Count 370 k/uL (150-450)
[2023-07-03 10:06] LABS: ALT 45 U/L (4-34); AST 47 U/L (14-36); African American GFR (CKD) >90 (>60 ml/min/1.73 sqM); Albumin 4.2 g/dL (3.5-5.0); Alkaline Phosphatase 69 U/L (38-126); Anion Gap 10 mmol/L; Blood Urea Nitrogen 7 mg/dL (7-17); Calcium 9.6 mg/dL (8.4-10.2); Carbon Dioxide 21 mmol/L (22-30); Chloride 109 mmol/L (98-107); Glucose 116 mg/dL (74-99); Lipase 92 U/L (23-300); Non-African American GFR(CKD) >90 (>60 ml/min/1.73 sqM); Potassium 4.1 mmol/L (3.5-5.1); Sodium 140 mmol/L (137-145); Total Bilirubin 0.4 mg/dL (0.2-1.3); Total Protein 7.1 g/dL (6.3-8.2)
--- NOTE | 2023-07-03 10:26 | XR ---
EXAMINATION TYPE: XR KUB DATE OF EXAM: 07/03/2023 10:19 AM CLINICAL INDICATION:Female, 62 years old with history of constipation; [facility] COMPARISON: None. TECHNIQUE: One radiographic view of the abdomen was obtained. FINDINGS: The bowel gas pattern is nonspecific without dilated loops of small or large bowel. There i s no evidence for organomegaly or pneumoperitoneum. The osseous structures are intact. Postsurgical clips are noted within the mid abdomen Fecal material and gas are demonstrated throughout the colon and rectum. IMPRESSION: Nonspecific bowel gas pattern without radiographic evidence for acute process.
--- NOTE | 2023-07-03 12:12 | ED ---
Abdominal Pain HPI - General Chief Complaint: Abdominal Pain Stated Complaint: Fever Time Seen by Provider: 07/03/23 08:57 Source: patient Mode of arrival: ambulatory Limitations: no limitations - History of Present Illness Initial Comments: 62-year-old female presents emergency Department reporting abdominal pain. States that she has not had a bowel movement in 10 days. Patient was seen in the emergency department on the with similar complaint. She did have CT performed which did not demonstrate an obstruction. Patient did have diverticulitis. She was started on antibiotics. States that she is still taking them. Her abdominal pain has decreased and she does not have any fevers however she has abdominal bloating and inability to have a bowel movement. States that she has used several measures in order to try and have a bowel movem ent including laxatives and enema. She has been unsuccessful. She does have a history of bowel obstruction and multiple abdominal surgeries. She is still passing gas. Denies any vomiting. No fevers. No other alleviating, precipitating or modifying factors - Related Data Home Medications Medication Instructions Recorded Confirmed Gabapentin [Neurontin] 400 mg PO BID 02/20/15 08/15/21 carBAMazepine [TEGretol] 400 mg PO Q12H 02/20/15 08/15/21 Aspirin EC [Ecotrin Low Dose] 81 mg PO DAILY 12/20/17 08/15/21 Acetaminophen Tab [Tylenol] 1,000 mg PO Q6HR PRN 08/11/21 08/15/21 LORazepam 0.5 mg PO BID PRN 08/11/21 08/15/21 Loratadine [Claritin] 10 mg PO DAILY 08/11/21 08/15/21 Rosuvastatin Calcium 20 mg PO HS 08/11/21 08/15/21 hydrOXYzine HCL 10 mg PO HS 08/11/21 08/15/21 Previous Rx's Medication Instructions Recorded Ascorbic Acid [Vitamin C] 500 mg PO DAILY #30 tab 08/17/21 Cholecalciferol [Vitamin D3 (25 50 mcg PO DAILY #60 tab 08/17/21 Mcg = 1000 Iu)] Zinc Sulfate [Orazinc] 220 mg PO DAILY #30 cap 08/17/21 dexAMETHasone [Decadron] 6 mg PO DAILY 7 Days #7 tablet 08/17/21 Amoxic-Pot Clav 875-125Mg 1 tab PO Q12HR #20 tab 06/27/23 [Augmentin 875-125] Lactulose [Cephulac] 20 gm PO BID PRN #240 ml 07/03/23 Allergies Allergy/AdvReac Type Severity Reaction Status Date / Time morphine Allergy Itching Verified 07/03/23 08:50 Review of Systems ROS Statement: Those systems with pertinent positive or pertinent negative responses have been documented in the HPI. ROS Other: All systems not noted in ROS Statement are negative. Past Medical History Past Medical History: Chest Pain / Angina, GERD/Reflux, Musculoskeletal Disorder Additional Past Medical History / Comment(s): EPILEPSY-LAST SEIZURE APPROX 8 YRS,CHRONIC PAIN TO ABD RADIATING RT HIP AND LEG.-COMES AND G0ES. HAS HAD TROUBLE SWALLOWING SINCE THE LAST 6 MONTHS History of Any Multi-Drug Resistant Organisms: None Reported Past Surgical History: Appendectomy, Cholecystectomy, Heart Catheterization, Hernia Repair, Hysterectomy, Tubal Ligation Additional Past Surgical History / Comment(s): RT INGUINAL HERNIA SURGERY W/ MESH, LT INGUINAL HERNIA REPAIR, BLADDER SLING,LT BREAST BX,APRIL KNEE ARTHROSCOPY,RT ANKLE ARTHROSCOPY, NERVE REMOVED RT FOOT, esophageal strictures Past Anesthesia/Blood Transfusion Reactions: Previous Problems w/ Anesthesia, Motion Sickness Additional Past Anesthesia/Blood Transfusion Reaction / Comment(s): LOW B/P AND PAIN CONTROL AFTER SURGERY Past Psychological History: Anxiety, Depression Smoking Status: Never smoker Past Alcohol Use History: None Reported Past Drug Use History: None Reported - Past Family History Father Family Medical History: Myocardial Infarction (LA) Additional Family Medical History / Comment(s): AT AGE 75 WITH LA, ABDOMINAL ANEURYSM,EMPHYSEMA, HEART PROBLEMS Mother Family Medical History: Dementia, GI Bleed Additional Family Medical History / Comment(s): WITH GI BLEED AT AGE 73,ALHEIMER'S DISEASE Brother(s) Family Medical History: Renal Disease Additional Family Medical History / Comment(s): MULTIPLE CONGENITAL SPINA BIFIDA General Exam Limitations: no limitations General appearance: alert, in no apparent distress Head exam: Present: atraumatic, normocephalic, normal inspection Eye exam: Present: normal appearance, PERRL, EOMI. Absent: scleral icterus, conjunctival injection, periorbital swelling ENT exam: Present: normal exam, mucous membranes moist Neck exam: Present: normal inspection. Absent: tenderness, meningismus, lymphadenopathy Respiratory exam: Present: normal lung sounds bilaterally. Absent: respiratory distress, wheezes, rales, rhonchi, stridor Cardiovascular Exam: Present: regular rate, normal rhythm, normal heart sounds. Absent: systolic murmur, diastolic murmur, rubs, gallop, clicks GI/Abdominal exam: Present: soft, distended, normal bowel sounds. Absent: tenderness, guarding, rebound, rigid Extremities exam: Present: normal inspection, full ROM, normal capillary refill. Absent: tenderness, pedal edema, joint swelling, calf tenderness Back exam: Present: normal inspection Neurological exam: Present: alert, oriented X3, CN II-XII intact Psychiatric exam: Present: normal affect, normal mood Skin exam: Present: warm, dry, intact, normal color. Absent: rash Course Vital Signs 07/03/23 07/03/23 07/03/23 08:48 09:29 11:00 Temperature 97.5 F L Pulse Rate 61 70 78 Respiratory 20 18 18 Rate Blood Pressure 139/78 128/76 O2 Sat by Pulse 99 95 Oximetry 07/03/23 07/03/23 12:16 13:28 Temperature 97.7 F Pulse Rate 76 71 Respiratory 18 18 Rate Blood Pressure 127/78 139/89 O2 Sat by Pulse 99 99 Oximetry Medical Decision Making - Medical Decision Making Was pt. sent in by a medical professional or institution ([facility], [facility], urgent care, hospital, or alf...) When possible be specific @ -No Did you speak to anyone other than the patient for history (EMS, parent, family, police, friend...)? What history was obtained from this source @ -No Did you review nursing and triage notes (agree or disagree)? Why? @ -I reviewed and agree with nursing and triage notes Were old charts reviewed (outside hosp., previous admission, EMS record, old EKG, old radiological studies, urgent care reports/EKG's, alf records)? Report findings @ -I reviewed the charting from the as well as the computed tomography scan Differential Diagnosis (chest pain, altered mental status, abdominal pain women, abdominal pain men, vaginal bleeding, weakness, fever, dyspnea, syncope, headache, dizziness, GI bleed, back pain, seizure, CVA, palpatations, mental health, musculoskeletal)? @ -Differential Abdominal Pain Women: Appendicitis, Cholecystitis, diverticulosis, ischemic bowel, pancreatitis, hepatitis, UTI, gastroenteritis, AAA, incarcerated hernia, bowel obstruction, constipation, inflammatory bowel, hepatitis, peptic ulcer disease, splenic infarction, perforated viscus, vulvitis, ovarian torsion, PID, kidney stone, placenta abruption, this is not meant to be an all-inclusive list EKG interpreted by me (3pts min.). @ -not Done X-rays interpreted by me (1pt min.). @ -yes And demonstrates no obstructive process CT interpreted by me (1pt min.). @ -None done U/S interpreted by me (1pt. min.). @ -None done What testing was considered but not performed or refused? (CT, X-rays, U/S, labs)? Why? @ -CT was considered however patient just had a CT exam What meds were considered but not given or refused? Why? @ -None Did you discuss the management of the patient with other professionals (professionals i.e. , PA, [employer], lab, RT, psych nurse, social media manager, garbage pick up man, teacher, bsa officer, pillowcase cleaner)? Give summary @ -No Was smoking cessation discussed for >3mins.? @ -No Was critical care preformed (if so, how long)? @ -No Were there social determinants of health that impacted care today? How? (Homelessness, low income, unemployed, alcoholism, drug addiction, transportation, low edu. Level, literacy, decrease access to med. care, [facility]ci, rehab)? @ -No Was there de-escalation of care discussed even if they declined (Discuss DNR or withdrawal of care, Hospice)? DNR status @ -No What co-morbidities impacted this encounter? (DM, HTN, Smoking, COPD, CAD, Cancer, CVA, ARF, Chemo, Hep., AIDS, mental health diagnosis, sleep apnea, morbid obesity)? @ -bowel obstruction with resection Was patient admitted / discharged? Hospital course, mention meds given and route, prescriptions, significant lab abnormalities, going to OR and other pertinent info. @ -Upon arrival patient was placed into room 20. Thorough history and physical exam was performed. I did review her imaging from the . KUB was performed . Laboratory studies were conducted. White count is within normal range. KUB demonstrates stool throughout the bowel. No obstructive process. Discuss results with the patient. Prescribed lactulose for the patient in order to try and have a bowel movement. She will be sent home with a dose. Take 2 doses as directed. If she does not have a bowel movement in 48 hours sheets return to the emergency department. Continue finishing her antibiotics return for any new or worsening symptoms her patient Xi plan and was discharged in stable condition Undiagnosed new problem with uncertain prognosis? @ -Yes Drug Therapy requiring intensive monitoring for toxicity (Heparin, Nitro, Insulin, Cardizem)? @ -No Were any procedures done? @ -No Diagnosis/symptom? @ -acute abdominal pain, acute constipation Acute, or Chronic, or Acute on Chronic? @ -Acute Uncomplicated (without systemic symptoms) or Complicated (systemic symptoms)? @ - complicated Side effects of treatment? @ -No Exacerbation, Progression, or Severe Exacerbation? @ -No Poses a threat to life or bodily function? How? (Chest pain, USA, LA, pneumonia, PE, COPD, DKA, ARF, appy, cholecystitis, CVA, Diverticulitis, Homicidal, Suicidal, threat to staff... and all critical care pts) @ -No - Lab Data Result diagrams: 07/03/23 09:43 07/03/23 09:43 Lab Results 07/03/23 07/03/23 07/03/23 Range/Units 09:43 09:43 09:43 WBC 4.8 (3.8-10.6) k/uL RBC 4.22 (3.80-5.40) m/uL Hgb 14.3 (11.4-16.0) gm/dL Hct 41.0 (34.0-46.0) % MCV 97.3 (80.0-100.0) fL MCH 33.8 (25.0-35.0) pg MCHC 34.8 (31.0-37.0) g/dL RDW 11.9 (11.5-15.5) % Plt Count 370 D (150-450) k/uL MPV 7.3 Neutrophils % 66 % Lymphocytes % 24 % Monocytes % 5 % Eosinophils % 3 % Basophils % 1 % Neutrophils # 3.1 (1.3-7.7) k/uL Lymphocytes # 1.2 (1.0-4.8) k/uL Monocytes # 0.2 (0-1.0) k/uL Eosinophils # 0.2 (0-0.7) k/uL Basophils # 0.0 (0-0.2) k/uL Sodium 140 (137-145) mmol/L Potassium 4.1 (3.5-5.1) mmol/L Chloride 109 H (98-107) mmol/L Carbon Dioxide 21 L (22-30) mmol/L Anion Gap 10 mmol/L BUN 7 (7-17) mg/dL Creatinine 0.52 (0.52-1.04) mg/dL Est GFR (CKD-EPI)AfAm >90 (>60 ml/min/1.73 sqM) Est GFR (CKD-EPI)NonAf >90 (>60 ml/min/1.73 sqM) Glucose 116 H (74-99) mg/dL Plasma Lactic Acid Brian 1.3 (0.7-2.0) mmol/L Calcium 9.6 (8.4-10.2) mg/dL Total Bilirubin 0.4 (0.2-1.3) mg/dL AST 47 H (14-36) U/L ALT 45 H (4-34) U/L Alkaline Phosphatase 69 (38-126) U/L Total Protein 7.1 (6.3-8.2) g/dL Albumin 4.2 (3.5-5.0) g/dL Lipase 92 (23-300) U/L Urine Color Urine Appearance (Clear) Urine pH (5.0-8.0) Ur Specific [place] (1.001-1.035) Urine Protein (Negative) Urine Glucose (UA) (Negative) Urine Ketones (Negative) Urine Blood (Negative) Urine Nitrite (Negative) Urine Bilirubin (Negative) Urine Urobilinogen (<2.0) mg/dL Ur Leukocyte Esterase (Negative) Urine RBC (0-5) /hpf Urine WBC (0-5) /hpf Ur Squamous Epith Cells (0-4) /hpf Urine Mucus (None) /hpf 07/03/23 Range/Units 12:30 WBC (3.8-10.6) k/uL RBC (3.80-5.40) m/uL Hgb (11.4-16.0) gm/dL Hct (34.0-46.0) % MCV (80.0-100.0) fL MCH (25.0-35.0) pg MCHC (31.0-37.0) g/dL RDW (11.5-15.5) % Plt Count (150-450) k/uL MPV Neutrophils % % Lymphocytes % % Monocytes % % Eosinophils % % Basophils % % Neutrophils # (1.3-7.7) k/uL Lymphocytes # (1.0-4.8) k/uL Monocytes # (0-1.0) k/uL Eosinophils # (0-0.7) k/uL Basophils # (0-0.2) k/uL Sodium (137-145) mmol/L Potassium (3.5-5.1) mmol/L Chloride (98-107) mmol/L Carbon Dioxide (22-30) mmol/L Anion Gap mmol/L BUN (7-17) mg/dL Creatinine (0.52-1.04) mg/dL Est GFR (CKD-EPI)AfAm (>60 ml/min/1.73 sqM) Est GFR (CKD-EPI)NonAf (>60 ml/min/1.73 sqM) Glucose (74-99) mg/dL Plasma Lactic Acid Brian (0.7-2.0) mmol/L Calcium (8.4-10.2) mg/dL Total Bilirubin (0.2-1.3) mg/dL AST (14-36) U/L ALT (4-34) U/L Alkaline Phosphatase (38-126) U/L Total Protein (6.3-8.2) g/dL Albumin (3.5-5.0) g/dL Lipase (23-300) U/L Urine Color Colorless Urine Appearance Clear (Clear) Urine pH 6.5 (5.0-8.0) Ur Specific [place] 1.010 (1.001-1.035) Urine Protein Negative (Negative) Urine Glucose (UA) Negative (Negative) Urine Ketones Negative (Negative) Urine Blood Negative (Negative) Urine Nitrite Negative (Negative) Urine Bilirubin Negative (Negative) Urine Urobilinogen <2.0 (<2.0) mg/dL Ur Leukocyte Esterase Trace H (Negative) Urine RBC <1 (0-5) /hpf Urine WBC 2 (0-5) /hpf Ur Squamous Epith Cells <1 (0-4) /hpf Urine Mucus Occasional H (None) /hpf Disposition Clinical Impression: Constipation, Abdominal pain Disposition: HOME SELF-CARE Condition: Stable Instructions (If sedation given, give patient instructions): Constipation (ED), Abdominal Pain (ED) Additional Instructions: Take the lactulose as directed. Follow up with Dr. Burnham at your scheduled appointment. Return if you do not have a bowel movement with the lactulose Prescriptions: Lactulose [Cephulac] 20 gm PO BID PRN #240 ml PRN Reason: Constipation Is patient prescribed a controlled substance at d/c from ED?: No Referrals: Yasir oHod MD [Primary Care Provider] - 1-2 days Nata Burnham MD [STAFF PHYSICIAN] - 1-2 days Time of Disposition: 12:58
[2023-07-03] MEDS ORDERED: LACTULOSE 20 GM/30 ML CUP PO ONE (12:53)
[2023-07-03 12:58] LABS: Appearance,Urine Clear (Clear); Bilirubin,Urine Negative (Negative); Blood,Urine Negative (Negative); Color,Urine Colorless; Glucose,Urine (UA) Negative (Negative); Ketones,Urine Negative (Negative); Leukocyte Esterase,Urine Trace (Negative); Mucus,Urine Occasional /hpf; Nitrite,Urine Negative (Negative); PH, Urine 6.5 (5.0-8.0); Protein,Urine Negative (Negative); RBC,Urine <1 /hpf (0-5); Squamous Epithelial Cell,Urine <1 /hpf (0-4); Urobilinogen,Urine <2.0 mg/dL (<2.0); WBC,Urine 2 /hpf (0-5)
[2023-07-03 13:45] VITALS: BP 139/89; PULSE 71; TEMP 97.7
== END 2023-07-03 13:32 | disposition home or self-care (01) ==
LOC: EC 08:42
DX: K59.00 Constipation, unspecified (principal); F41.9 Anxiety disorder, unspecified; F32.A Depression, unspecified; Z79.82 Long term (current) use of aspirin; Z79.899 Other long term (current) drug therapy; Z88.5 Allergy status to narcotic agent
CPT/HCPCS: 36415; 74018; 80053; 81001; 83605; 83690; 85025; 96360; 99284

== ENCOUNTER 2023-07-08 15:14 | Emergency (ER) | payer MEDICARE ==
--- NOTE | 2023-07-08 15:26 | ED ---
Abdominal Pain HPI - General Source: patient, RN notes reviewed <Yolanda Leonard - Last Filed: 07/08/23 15:24> <Mark Anna - Last Filed: 07/08/23 19:39> - General Stated Complaint: Constipation Time Seen by Provider: 07/08/23 15:25 - History of Present Illness Initial Comments: Patient is a 62-year-old female presented ER chief complaint of constipation. Patient states she's had a bowel movement in the past 3 weeks. Patient is tried [id number] products without success. Patient denies any fevers or chills. Patient does have an abdominal surgery history. (Yolanda Leonard) 62-year-old female presenting to the ED with a chief complaint of constipation. Patient states for the past 3 weeks has had difficulties having a full bowel movement. Was seen here previously and provided laxatives. Since prior visit and continue laxative use patient reports that she is having watery stools and not completely formed stools. Also notes that she is now starting to have some nausea. Dizziness patient reports that she has had difficulty eating for the past few days as well. Patient does note some slight pain however states she is more concerned about the fact that she has not had a Moon bowel movement in a while. No chest pain or shortness of breath. No blood in the stool. No other complaints. (Mark Anna) - Related Data Home Medications Medication Instructions Recorded Confirmed Gabapentin [Neurontin] 400 mg PO BID 02/20/15 08/15/21 carBAMazepine [TEGretol] 400 mg PO Q12H 02/20/15 08/15/21 Aspirin EC [Ecotrin Low Dose] 81 mg PO DAILY 12/20/17 08/15/21 Acetaminophen Tab [Tylenol] 1,000 mg PO Q6HR PRN 08/11/21 08/15/21 LORazepam 0.5 mg PO BID PRN 08/11/21 08/15/21 Loratadine [Claritin] 10 mg PO DAILY 08/11/21 08/15/21 Rosuvastatin Calcium 20 mg PO HS 08/11/21 08/15/21 hydrOXYzine HCL 10 mg PO HS 08/11/21 08/15/21 Previous Rx's Medication Instructions Recorded Ascorbic Acid [Vitamin C] 500 mg PO DAILY #30 tab 08/17/21 Cholecalciferol [Vitamin D3 (25 50 mcg PO DAILY #60 tab 08/17/21 Mcg = 1000 Iu)] Zinc Sulfate [Orazinc] 220 mg PO DAILY #30 cap 08/17/21 dexAMETHasone [Decadron] 6 mg PO DAILY 7 Days #7 tablet 08/17/21 Amoxic-Pot Clav 875-125Mg 1 tab PO Q12HR #20 tab 06/27/23 [Augmentin 875-125] Lactulose [Cephulac] 20 gm PO BID PRN #240 ml 07/03/23 Allergies Allergy/AdvReac Type Severity Reaction Status Date / Time morphine Allergy Itching Verified 07/03/23 08:50 Review of Systems ROS Other: All systems not noted in ROS Statement are negative. <Yolanda Leonard - Last Filed: 07/08/23 15:24> ROS Other: All systems not noted in ROS Statement are negative. <Mark Anna - Last Filed: 07/08/23 19:39> ROS Statement: Those systems with pertinent positive or pertinent negative responses have been documented in the HPI. Past Medical History Past Medical History: Chest Pain / Angina, GERD/Reflux, Musculoskeletal Disorder Additional Past Medical History / Comment(s): EPILEPSY-LAST SEIZURE APPROX 8 YRS,CHRONIC PAIN TO ABD RADIATING RT HIP AND LEG.-COMES AND G0ES. HAS HAD TROUBLE SWALLOWING SINCE THE LAST 6 MONTHS History of Any Multi-Drug Resistant Organisms: None Reported Past Surgical History: Appendectomy, Cholecystectomy, Heart Catheterization, Hernia Repair, Hysterectomy, Tubal Ligation Additional Past Surgical History / Comment(s): RT INGUINAL HERNIA SURGERY W/ MESH, LT INGUINAL HERNIA REPAIR, BLADDER SLING,LT BREAST BX,APRIL KNEE ARTHROSCOPY,RT ANKLE ARTHROSCOPY, NERVE REMOVED RT FOOT, esophageal strictures Past Anesthesia/Blood Transfusion Reactions: Previous Problems w/ Anesthesia, Motion Sickness Additional Past Anesthesia/Blood Transfusion Reaction / Comment(s): LOW B/P AND PAIN CONTROL AFTER SURGERY Past Psychological History: Anxiety, Depression Smoking Status: Never smoker Past Alcohol Use History: None Reported Past Drug Use History: None Reported - Past Family History Father Family Medical History: Myocardial Infarction (DC) Additional Family Medical History / Comment(s): AT AGE 75 WITH DC, ABDOMINAL ANEURYSM,EMPHYSEMA, HEART PROBLEMS Mother Family Medical History: Dementia, GI Bleed Additional Family Medical History / Comment(s): WITH GI BLEED AT AGE 73,ALHEIMER'S DISEASE Brother(s) Family Medical History: Renal Disease Additional Family Medical History / Comment(s): MULTIPLE CONGENITAL SPINA BIFIDA <Yolanda Leonard - Last Filed: 07/08/23 15:24> General Exam <Yolanda Leonard - Last Filed: 07/08/23 15:24> General appearance: alert, in no apparent distress Respiratory exam: Present: normal lung sounds bilaterally Cardiovascular Exam: Present: regular rate GI/Abdominal exam: Present: soft (No tenderness to palpation. No rebound guarding or rigidity.), normal bowel sounds Neurological exam: Present: alert, oriented X3 Skin exam: Present: warm, dry <Mark Anna - Last Filed: 07/08/23 19:39> - General Exam Comments Initial Comments: Visual Physical Exam Vital signs reviewed General: Well-appearing, nontoxic, no acute distress. Head: Normocephalic, atraumatic Eyes: PERRLA, EOMI ENT: Airway patent Chest: Nonlabored breathing Skin: No visual rash, normal skin tone Neuro: Alert and oriented 3 Musculoskeletal: No gross abnormalities (Yolanda Leonard) Course Vital Signs 07/08/23 15:27 Temperature 98.3 F Pulse Rate 83 Respiratory 16 Rate Blood Pressure 181/78 O2 Sat by Pulse 97 Oximetry Medical Decision Making <Yolanda Leonard - Last Filed: 07/08/23 15:24> - Lab Data Result diagrams: 07/08/23 15:38 07/08/23 15:38 <Mark Anna - Last Filed: 07/08/23 19:39> - Medical Decision Making I performed the quick note portion of the exam. Electronically signed by Yolanda Leonard PA-C (Yolanda Leonard) Was pt. sent in by a medical professional or institution ([facility], MEDICINE TEACHER, urgent care, hospital, or fpc...) When possible be specific @ -No Did you speak to anyone other than the patient for history (EMS, parent, family, police, friend...)? What history was obtained from this source @ -No Did you review nursing and triage notes (agree or disagree)? Why? @ -I reviewed and agree with nursing and triage notes Were old charts reviewed (outside hosp., previous admission, EMS record, old EKG, old radiological studies, urgent care reports/EKG's, fpc records)? Report findings @ -Previous visit on 07/03/23 reviewed showing patient had an x-ray with no evidence of obstruction and patient was prescribed lactulose. Differential Diagnosis (chest pain, altered mental status, abdominal pain women, abdominal pain men, vaginal bleeding, weakness, fever, dyspnea, syncope, headache, dizziness, GI bleed, back pain, seizure, CVA, palpatations, mental health, musculoskeletal)? @ -Differential Abdominal Pain Women: Appendicitis, Cholecystitis, diverticulosis, ischemic bowel, pancreatitis, hepatitis, UTI, gastroenteritis, AAA, incarcerated hernia, bowel obstruction, constipation, inflammatory bowel, hepatitis, peptic ulcer disease, splenic infarction, perforated viscus, vulvitis, ovarian torsion, PID, kidney stone, placenta abruption, this is not meant to be an all-inclusive list EKG interpreted by me (3pts min.). @ -None X-rays interpreted by me (1pt min.). @ -None done CT interpreted by me (1pt min.). @ -CT abdomen and pelvis interpreted by me showing no evidence of obstruction or other acute finding. U/S interpreted by me (1pt. min.). @ -None done What testing was considered but not performed or refused? (CT, X-rays, U/S, labs)? Why? @ -None What meds were considered but not given or refused? Why? @ -None Did you discuss the management of the patient with other professionals (pr ofessionals i.e. , PA, MEDICINE TEACHER, lab, RT, psych nurse, social media marketing analyst, collision estimator, teacher, supply officer, showcase trimmer)? Give summary @ -No Was smoking cessation discussed for >3mins.? @ -No Was critical care preformed (if so, how long)? @ -No Were there social determinants of health that impacted care today? How? (Homelessness, low income, unemployed, alcoholism, drug addiction, transport ation, low edu. Level, literacy, decrease access to med. care, snf, rehab)? @ -No Was there de-escalation of care discussed even if they declined (Discuss DNR or withdrawal of care, Hospice)? DNR status @ -No What co-morbidities impacted this encounter? (DM, HTN, Smoking, COPD, CAD, Cancer, CVA, ARF, Chemo, Hep., AIDS, mental health diagnosis, sleep apnea, morbid obesity)? @ -None Was patient admitted / discharged? Hospital course, mention meds given and route, prescriptions, significant lab abnormalities, going to OR and other pertinent info. @ -Discharge 62-year-old female presenting to the ED with complaints of not having a fully formed bowel movements in the past 3 weeks. He has been pelvis reviewed shows no evidence of obstruction or other acute finding. Laboratory studies largely unremarkable. Patient instructed to increase fiber use and physical activity as well as increasing hydration and continuing lactulose use as needed. At this time vital signs stable afebrile. Discharged home in stable condition. Discussed return precautions with patient who verbalizes agreement. Undiagnosed new problem with uncertain prognosis? @ -No Drug Therapy requiring intensive monitoring for toxicity (Heparin, Nitro, Insulin, Cardizem)? @ -No Were any procedures done? @ -No Diagnosis/symptom? @ -Constipation Acute, or Chronic, or Acute on Chronic? @ -Acute Uncomplicated (without systemic symptoms) or Complicated (systemic symptoms)? @ -Uncomplicated Side effects of treatment? @ -No Exacerbation, Progression, or Severe Exacerbation? @ -No Poses a threat to life or bodily function? How? (Chest pain, USA, DC, pneumonia, PE, COPD, DKA, ARF, appy, cholecystitis, CVA, Diverticulitis, Homicidal, Suicidal, threat to staff... and all critical care pts) @ -No (Mark Anna) - Lab Data Lab Results 07/08/23 07/08/23 07/08/23 Range/Units 15:38 15:38 15:38 WBC 5.4 (3.8-10.6) k/uL RBC 4.43 (3.80-5.40) m/uL Hgb 15.0 (11.4-16.0) gm/dL Hct 42.6 (34.0-46.0) % MCV 96.3 (80.0-100.0) fL MCH 33.8 (25.0-35.0) pg MCHC 35.1 (31.0-37.0) g/dL RDW 11.9 (11.5-15.5) % Plt Count 432 (150-450) k/uL MPV 7.2 Sodium 142 (137-145) mmol/L Potassium 3.7 (3.5-5.1) mmol/L Chloride 108 H (98-107) mmol/L Carbon Dioxide 20 L (22-30) mmol/L Anion Gap 14 mmol/L BUN 10 (7-17) mg/dL Creatinine 0.54 (0.52-1.04) mg/dL Est GFR (CKD-EPI)AfAm >90 (>60 ml/min/1.73 sqM) Est GFR (CKD-EPI)NonAf >90 (>60 ml/min/1.73 sqM) Glucose 121 H (74-99) mg/dL Plasma Lactic Acid Brian 1.2 (0.7-2.0) mmol/L Calcium 10.3 H (8.4-10.2) mg/dL Total Bilirubin 0.5 (0.2-1.3) mg/dL AST 29 (14-36) U/L ALT 31 (4-34) U/L Alkaline Phosphatase 77 (38-126) U/L Total Protein 7.9 (6.3-8.2) g/dL Albumin 4.8 (3.5-5.0) g/dL Amylase 61 (30-110) U/L Lipase 74 (23-300) U/L Disposition <Yolanda Leonard - Last Filed: 07/08/23 15:24> Is patient prescribed a controlled substance at d/c from ED?: No Time of Disposition: 19:39 <Mark Anna - Last Filed: 07/08/23 19:39> Clinical Impression: Constipation Disposition: HOME SELF-CARE Condition: Good Instructions (If sedation given, give patient instructions): Constipation (ED), High Fiber Diet (ED) Additional Instructions: Please return to the Emergency Department if symptoms worsen or any other concerns. Please follow up with your primary care provider. Referrals: Yasir Hood MD [Primary Care Provider] - 1-2 days
[2023-07-08 15:49] VITALS: BP 181/78; PULSE 83; RESP 16; TEMP 98.3
[2023-07-08 16:02] LABS: HCT 42.6 % (34.0-46.0); MCH 33.8 pg (25.0-35.0); MCHC 35.1 g/dL (31.0-37.0); MCV 96.3 fL (80.0-100.0); Mean Platelet Volume 7.2; Platelet Count 432 k/uL (150-450); RBC 4.43 m/uL (3.80-5.40); RDW 11.9 % (11.5-15.5); WBC 5.4 k/uL (3.8-10.6)
[2023-07-08 16:13] LABS: ALT 31 U/L (4-34); AST 29 U/L (14-36); African American GFR (CKD) >90 (>60 ml/min/1.73 sqM); Albumin 4.8 g/dL (3.5-5.0); Alkaline Phosphatase 77 U/L (38-126); Amylase 61 U/L (30-110); Anion Gap 14 mmol/L; Blood Urea Nitrogen 10 mg/dL (7-17); Calcium 10.3 mg/dL (8.4-10.2); Carbon Dioxide 20 mmol/L (22-30); Chloride 108 mmol/L (98-107); Glucose 121 mg/dL (74-99); Lipase 74 U/L (23-300); Non-African American GFR(CKD) >90 (>60 ml/min/1.73 sqM); Potassium 3.7 mmol/L (3.5-5.1); Sodium 142 mmol/L (137-145); Total Bilirubin 0.5 mg/dL (0.2-1.3); Total Protein 7.9 g/dL (6.3-8.2)
--- NOTE | 2023-07-08 19:03 | CT ---
EXAMINATION TYPE: CT abdomen pelvis w con DATE OF EXAM: 07/08/2023 COMPARISON: 06/27/2023 INDICATION: abdominal pain, constipation DLP: 1378.9 mGycm, Automated exposure control for dose reduction was used. CONTRAST: 100 ml mL of Isovue 300. Study performed without Oral Contrast TECHNIQUE: Axial images were obtained from above the diaphragm to the pubic rami in the axial plane a t 5 mm thick sections. Reconstructed images are reviewed on the computer in the coronal plane. FINDINGS: Limited CT sections are obtained the lung bases. The lung bases are clear. CT ABDOMEN: Liver: Normal Spleen: Normal Pancreas: Normal Adrenal glands: Right adrenal gland is somewhat thickened at 1.5 cm. Minimal thickening left adrenal gland may be present measuring 1.2 cm. Gallbladder: Surgically absent. Kidneys: No masses are evident. No hydronephrosis is present. No cysts are present. Delayed images were obtained through the kidneys which remain unremarkable. Aorta: Vascular calcification is within the aorta. Inferior vena cava: Normal. CT PELVIS: Loops of bowel within the abdomen and pelvis are normal. Studies performed without oral contrast limiting evaluation. Multiple diverticula within the sigmoid colon. No adjacent telemetry changes to suggest acute diverticulitis. Appendix: Not identified. Surgical suture is present suggesting prior resection. Urinary bladder: Normal. Genitourinary structures: Uterus and ovaries are not identified. Osseous structures: No suspicious lytic or sclerotic lesions. IMPRESSION: 1. 1. Slight prominence of the adrenal glands discussed above. 2. Sigmoid diverticulosis without acute diverticulitis. Previous findings of acute diverticulitis has essentially resolved.
[2023-07-08] MEDS ORDERED: ONDANSETRON 4 MG ODT STARTER PACK 2 TAB BTL PO STA (19:39)
== END 2023-07-08 19:59 | disposition home or self-care (01) ==
LOC: EC 15:14
DX: K57.30 Diverticulosis of large intestine without perforation or abscess without bleeding (principal); K59.00 Constipation, unspecified; F41.9 Anxiety disorder, unspecified; F32.A Depression, unspecified; Z79.899 Other long term (current) drug therapy; Z79.82 Long term (current) use of aspirin; Z88.5 Allergy status to narcotic agent
CPT/HCPCS: 36415; 80053; 82150; 83605; 83690; 85027; 74177; 99284; S0119; Q9967

== ENCOUNTER → 2023-12-13 | Outpatient (CLI) | payer MEDICARE ==
--- NOTE | 2023-12-14 19:24 | MM ---
Reason for Exam: Screening (asymptomatic). Last mammogram was performed 1 year(s) and 2 month(s) ago. Patient History: Menarche at age 11. First Full-Term at age 18. Hysterectomy at age 29. Postmenopausal. 1990, Benign Excisional Biopsy on the left side. Risk Values: [place] 5 year model risk: 1.3%. NCI Lifetime model risk: 5.7%. Prior Study Comparison: 07/07/2020 Bilateral Screening Mammogram, [facility]. 07/15/2021 Bilateral Screening Mammogram, [facility]. 10/19/2022 Bilateral MG 3D screening mammo w/cad, [facility]. Tissue Density: The breasts are heterogeneously dense, which may obscure small masses. Findings: Analyzed By CAD. Distortion left upper outer quadrant is unchanged and compatible with patient's known incisional scar. There is no suspicious group of microcalcifications or new suspicious mass in either breast. Overall Assessment: Benign, BI-RAD 2 Management: Screening Mammogram of both breasts in 1 year. . Patient should continue monthly self-breast exams. A clinical breast exam by your physician is recommended on an annual basis. This exam should not preclude additional follow-up of suspicious palpable abnormalities. Note on Ju[place] scores and lifetime risk: 1. A [place] score greater than 3% is considered moderate risk. If this is the case, consider specialist referral to assess eligibility for a risk reducing agent. 2. If overall lifetime risk for the development of breast cancer is 20% or higher, the patient may qualify for future screening with alternating mammogram and breast MRI. Electronically signed and approved by: Beverly Santos M.D. Radiologist
== END | disposition home or self-care (01) ==
LOC: RADMAMWWP 07:18
PROVIDERS: ATTEND Family Medicine
DX: Z12.31 Encounter for screening mammogram for malignant neoplasm of breast (principal); Z78.0 Asymptomatic menopausal state
CPT/HCPCS: 77063; 77067

== ENCOUNTER 2024-06-28 23:09 | Emergency (ER) | payer MEDICARE ==
[2024-06-28 23:13] VITALS: RESP 18; TEMP 96.8
--- NOTE | 2024-06-29 00:26 | ED ---
Recheck HPI - General Chief Complaint: Recheck/Abnormal Lab/Rx Stated Complaint: Allergic Reaction to Medication Time Seen by Provider: 06/29/24 00:25 Source: patient, RN notes reviewed Mode of arrival: ambulatory Limitations: no limitations - History of Present Illness Initial Comments: 63-year-old female presented to the ER with a chief complaint of dental pain and facial swelling. Patient states she had a her top teeth pulled yesterday at [facility] in [place]. She states she had an implant placed as well. Patient reports that she was started on Augmentin and prescribed Motrin 800 for pain control outpatient. She has taken 3 doses of Augmentin at this time. She is not taking Motrin 800 but she has been taking [id number] 200 mg ibuprofen and baby aspirin which has not controlled her pain. Patient states she believes her cheeks are swollen as well. States that she is extremely tender to touch. She denies any foul taste in her mouth. Denies any fevers, chills, tongue swelling, throat swelling, difficulty breathing, difficulty swallowing or handling secretions. Denies any chest pain, shortness of breath or other complaints. - Related Data Home Medications Medication Instructions Recorded Confirmed Gabapentin [Neurontin] 400 mg PO BID 02/20/15 08/15/21 carBAMazepine [TEGretol] 400 mg PO Q12H 02/20/15 08/15/21 Aspirin EC [Ecotrin Low Dose] 81 mg PO DAILY 12/20/17 08/15/21 Acetaminophen Tab [Tylenol] 1,000 mg PO Q6HR PRN 08/11/21 08/15/21 LORazepam 0.5 mg PO BID PRN 08/11/21 08/15/21 Loratadine [Claritin] 10 mg PO DAILY 08/11/21 08/15/21 Rosuvastatin Calcium 20 mg PO HS 08/11/21 08/15/21 hydrOXYzine HCL 10 mg PO HS 08/11/21 08/15/21 Previous Rx's Medication Instructions Recorded Ascorbic Acid [Vitamin C] 500 mg PO DAILY #30 tab 08/17/21 Cholecalciferol [Vitamin D3 (25 50 mcg PO DAILY #60 tab 08/17/21 Mcg = 1000 Iu)] Zinc Sulfate [Orazinc] 220 mg PO DAILY #30 cap 08/17/21 dexAMETHasone [Decadron] 6 mg PO DAILY 7 Days #7 tablet 08/17/21 Amoxic-Pot Clav 875-125Mg 1 tab PO Q12HR #20 tab 06/27/23 [Augmentin 875-125] Lactulose [Cephulac] 20 gm PO BID PRN #240 ml 07/03/23 Ondansetron Odt [Zofran Odt] 4 mg PO Q8HR PRN #10 tab 07/08/23 Allergies Allergy/AdvReac Type Severity Reaction Status Date / Time morphine Allergy Itching Verified 06/28/24 23:13 Review of Systems ROS Statement: Those systems with pertinent positive or pertinent negative responses have been documented in the HPI. ROS Other: All systems not noted in ROS Statement are negative. Past Medical History Past Medical History: Chest Pain / Angina, GERD/Reflux, Musculoskeletal Disorder Additional Past Medical History / Comment(s): EPILEPSY-LAST SEIZURE APPROX 8 YRS ,CHRONIC PAIN TO ABD RADIATING RT HIP AND LEG.-COMES AND G0ES. HAS HAD TROUBLE SWALLOWING SINCE THE LAST 6 MONTHS History of Any Multi-Drug Resistant Organisms: None Reported Past Surgical History: Appendectomy, Cholecystectomy, Heart Catheterization, Hernia Repair, Hysterectomy, Tubal Ligation Additional Past Surgical History / Comment(s): RT INGUINAL HERNIA SURGERY W/ MESH, LT INGUINAL HERNIA REPAIR, BLADDER SLING,LT BREAST BX,APRIL KNEE ARTHROSCOPY,RT ANKLE ARTHROSCOPY, NERVE REMOVED RT FOOT, esophageal strictures Past Anesthesia/Blood Transfusion Reactions: Previous Problems w/ Anesthesia, Motion Sickness Additional Past Anesthesia/Blood Transfusion Reaction / Comment(s): LOW B/P AND PAIN CONTROL AFTER SURGERY Past Psychological History: Anxiety, Depression Smoking Status: Never smoker Past Alcohol Use History: None Reported Past Drug Use History: None Reported - Past Family History Father Family Medical History: Myocardial Infarction ([place]) Additional Family Medical History / Comment(s): AT AGE 75 WITH [place], ABDOMINAL ANEURYSM,EMPHYSEMA, HEART PROBLEMS Mother Family Medical History: Dementia, GI Bleed Additional Family Medical History / Comment(s): WITH GI BLEED AT AGE 73,ALHEIMER'S DISEASE Brother(s) Family Medical History: Renal Disease Additional Family Medical History / Comment(s): MULTIPLE CONGENITAL SPINA BIFIDA General Exam Limitations: no limitations General appearance: alert, in no apparent distress Eye exam: Present: normal appearance, PERRL, EOMI. Absent: scleral icterus, conjunctival injection, periorbital swelling ENT exam: Present: mucous membranes moist, other (Implant in place. No oropharynx or tongue swelling. No drainable abscess. Tender maxillary sinuses to palpation) Neck exam: Present: normal inspection. Absent: tenderness, meningismus, lymphadenopathy Respiratory exam: Present: normal lung sounds bilaterally. Absent: respiratory distress, wheezes, rales, rhonchi, stridor Cardiovascular Exam: Present: regular rate, normal rhythm, normal heart sounds. Absent: systolic murmur, diastolic murmur, rubs, gallop, clicks Neurological exam: Present: alert, oriented X3, CN II-XII intact Skin exam: Present: warm, dry, intact, normal color. Absent: rash Course Vital Signs 06/28/24 06/29/24 06/29/24 23:10 01:09 02:57 Temperature 96.8 F L Pulse Rate 82 73 81 Respiratory 18 18 18 Rate Blood Pressure 149/99 136/91 138/86 O2 Sat by Pulse 95 98 96 Oximetry Medical Decision Making - Medical Decision Making Was pt. sent in by a medical professional or institution (, PA, [employer], urgent care, hospital, or long term...) When possible be specific @ -No Did you speak to anyone other than the patient for history (EMS, parent, family, police, friend...)? What history was obtained from this source @ -No Did you review nursing and triage notes (agree or disagree)? Why? @ -I reviewed and agree with nursing and triage notes Were old charts reviewed (outside hosp., previous admission, EMS record, old EKG, old radiological studies, urgent care reports/EKG's, long term records)? Report findings @ -No old charts were reviewed Differential Diagnosis (chest pain, altered mental status, abdominal pain women, abdominal pain men, vaginal bleeding, weakness, fever, dyspnea, syncope, headache, dizziness, GI bleed, back pain, seizure, CVA, palpatations, mental health, musculoskeletal)? @ -Dental abscess, fractured tooth, pulpitis, Antoine angina... This list is not meant to be all-inclusive EKG interpreted by me (3pts min.). @ -None done X-rays interpreted by me (1pt min.). @ -None done CT interpreted by me (1pt min.). @ -None done U/S interpreted by me (1pt. min.). @ -None done What testing was considered but not performed or refused? (CT, X-rays, U/S, labs)? Why? @ -None What meds were considered but not given or refused? Why? @ -None Did you discuss the management of the patient with other professionals (lilly thornton i.e. , PA, [employer], lab, RT, psych nurse, social service assistant, air brake tester, teacher, coastal/harbor defense officer, pillowcase cutter)? Give summary @ -No Was smoking cessation discussed for >3mins.? @ -No Was critical care preformed (if so, how long)? @ -No Were there social determinants of health that impacted care today? How? (Homelessness, low income, unemployed, alcoholism, drug addiction, transportation, low edu. Level, literacy, decrease access to med. care, long-term, rehab)? @ -No Was there de-escalation of care discussed even if they declined (Discuss DNR or withdrawal of care, Hospice)? DNR status @ -No What co-morbidities impacted this encounter? (DM, HTN, Smoking, COPD, CAD, Cancer, CVA, ARF, Chemo, Hep., AIDS, mental health diagnosis, sleep apnea, morbid obesity)? @ -None Was patient admitted / discharged? Hospital course, mention meds given and route, prescriptions, significant lab abnormalities, going to OR and other pertinent info. @ -Discharge. 63-year-old female presenting to the ER with a chief complaint of postoperative dental pain and facial swelling. History and physical exam completed. Vitals stable. Patient no signs of acute distress and nontoxic- appearing. Exam remarkable for dental implant on upper jaw. There is no drainable abscess present. Airway patent. Maxillary sinus tenderness. Due to concern of possible infection laboratory studies will be completed along with symptomatic control. Laboratory studies unremarkable. Patient received symptomatic control with IV Toradol. Upon reevaluation, patient resting comfortably on stretcher no signs of acute distress. Patient reporting pain is a 3 out of 10 at this time and stating she would like to go home. Instructed patient to continue taking Augmentin as prescribed and follow-up closely with dentist as scheduled. I strongly encourage patient to take Motrin 800s for pain control outpatient patient is in agreement with this. Strict return parameters discussed. Patient discharged in stable condition with follow-up to dentist. Patient verbally expressed understanding and agreement with care plan. Case discussed with ED attending, Dr. Hill. Undiagnosed new problem with uncertain prognosis? @ -No Drug Therapy requiring intensive monitoring for toxicity (Heparin, Nitro, Insu lazaro, Cardizem)? @ -No Were any procedures done? @ -No Diagnosis/symptom? @ -Postoperative dental pain Acute, or Chronic, or Acute on Chronic? @ -Acute Uncomplicated (without systemic symptoms) or Complicated (systemic symptoms)? @ -Uncomplicated Side effects of treatment? @ -No Exacerbation, Progression, or Severe Exacerbation? @ -No Poses a threat to life or bodily function? How? (Chest pain, [place], [place], pneumonia, PE, COPD, DKA, ARF, appy, cholecystitis, CVA, Diverticulitis, Homicidal, Jen cidal, threat to staff... and all critical care pts) @ -No - Lab Data Result diagrams: 06/29/24 00:24 06/29/24 00:24 Lab Results 06/29/24 06/29/24 06/29/24 Range/Units 00:24 00: 00:24 WBC 7.5 (3.8-10.6) k/uL RBC 4.47 (3.80-5.40) m/uL Hgb 15.0 (11.4-16.0) gm/dL Hct 43.8 (34.0-46.0) % MCV 98.1 (80.0-100.0) fL MCH 33.6 (25.0-35.0) pg MCHC 34.2 (31.0-37.0) g/dL RDW 12.0 (11.5-15.5) % Plt Count 336 (150-450) k/uL MPV 6.9 Neutrophils % 68 % Lymphocytes % 21 % Monocytes % 7 % Eosinophils % 3 % Basophils % 1 % Neutrophils # 5.1 (1.3-7.7) k/uL Lymphocytes # 1.6 (1.0-4.8) k/uL Monocytes # 0.5 (0-1.0) k/uL Eosinophils # 0.2 (0-0.7) k/uL Basophils # 0.1 (0-0.2) k/uL Sodium 141 (137-145) mmol/L Potassium 3.9 (3.5-5.1) mmol/L Chloride 107 (98-107) mmol/L Carbon Dioxide 23 (22-30) mmol/L Anion Gap 11 mmol/L BUN 16 (7-17) mg/dL Creatinine 0.63 (0.52-1.04) mg/dL Est GFR (CKD-EPI)AfAm >90 (>60 ml/min/1.73 sqM) Est GFR (CKD-EPI)NonAf >90 (>60 ml/min/1.73 sqM) Glucose 132 H (74-99) mg/dL Plasma Lactic Acid Brian 1.2 (0.7-2.0) mmol/L Calcium 10.2 (8.4-10.2) mg/dL Total Bilirubin 0.5 (0.2-1.3) mg/dL AST 31 (14-36) U/L ALT 36 H (4-34) U/L Alkaline Phosphatase 91 (38-126) U/L Total Protein 7.7 (6.3-8.2) g/dL Albumin 4.8 (3.5-5.0) g/dL Disposition Clinical Impression: Post-operative pain, Pain, dental Disposition: HOME SELF-CARE Condition: Stable Additional Instructions: I strongly encourage you to take 800 mg of ibuprofen every 6 hours as needed for pain. Continue taking Augmentin as prescribed. Follow-up closely with [facility] in [place]. Return to the ER for any new or worsening concerns. Is patient prescribed a controlled substance at d/c from ED?: No Referrals: Yasir Hood MD [Primary Care Provider] - 1-2 days Time of Disposition: 02:41
[2024-06-29] MEDS: KETOROLAC 15 MG/ML 1 ML VIAL IVP STA (01:03)
[2024-06-29 01:39] LABS: Basophils # (A) 0.1 k/uL (0-0.2); Basophils % (A) 1 %; Eosinophils # (A) 0.2 k/uL (0-0.7); Eosinophils % (A) 3 %; HCT 43.8 % (34.0-46.0); Lymphocytes # (A) 1.6 k/uL (1.0-4.8); Lymphocytes % (A) 21 %; MCH 33.6 pg (25.0-35.0); MCHC 34.2 g/dL (31.0-37.0); MCV 98.1 fL (80.0-100.0); Mean Platelet Volume 6.9; Monocytes # (A) 0.5 k/uL (0-1.0); Monocytes % (A) 7 %; Neutrophils # (A) 5.1 k/uL (1.3-7.7); Neutrophils % (A) 68 %; Platelet Count 336 k/uL (150-450); RBC 4.47 m/uL (3.80-5.40); WBC 7.5 k/uL (3.8-10.6)
[2024-06-29 01:47] LABS: ALT 36 U/L (4-34); AST 31 U/L (14-36); African American GFR (CKD) >90 (>60 ml/min/1.73 sqM); Albumin 4.8 g/dL (3.5-5.0); Alkaline Phosphatase 91 U/L (38-126); Anion Gap 11 mmol/L; Blood Urea Nitrogen 16 mg/dL (7-17); Calcium 10.2 mg/dL (8.4-10.2); Carbon Dioxide 23 mmol/L (22-30); Chloride 107 mmol/L (98-107); Glucose 132 mg/dL (74-99); Non-African American GFR(CKD) >90 (>60 ml/min/1.73 sqM); Potassium 3.9 mmol/L (3.5-5.1); Sodium 141 mmol/L (137-145); Total Bilirubin 0.5 mg/dL (0.2-1.3); Total Protein 7.7 g/dL (6.3-8.2)
[2024-06-29 02:58] VITALS: BP 138/86; PULSE 81
== END 2024-06-29 02:58 | disposition home or self-care (01) ==
LOC: EC 23:09
DX: G89.18 Other acute postprocedural pain (principal); K08.89 Other specified disorders of teeth and supporting structures; Z88.5 Allergy status to narcotic agent
CPT/HCPCS: 36415; 80053; 83605; 85025; 99283; 96374; J1885

== ENCOUNTER 2024-10-08 16:57 | Emergency (ER) | payer MEDICARE ==
--- NOTE | 2024-10-08 17:14 | ED ---
Dizziness HPI - General Source: patient <Ann Ceja - Last Filed: 10/08/24 17:13> <LamaJesus - Last Filed: 10/16/24 14:21> - General Stated Complaint: dizzy Time Seen by Provider: 10/08/24 17:13 - History of Present Illness Initial Comments: Quick [id number] female presenting for dizziness x 1 week. Reports symptoms are intermittent. Reports she was concerned that her blood pressure was elevated at 160/80 today. She was prescribed losartan by her director translation however has not taken it. Denies chest pain or shortness of breath. (Ann Ceja) - Related Data Home Medications Medication Instructions Recorded Confirmed Gabapentin [Neurontin] 400 mg PO BID 02/20/15 08/15/21 carBAMazepine [TEGretol] 400 mg PO Q12H 02/20/15 08/15/21 Aspirin EC [Ecotrin Low Dose] 81 mg PO DAILY 12/20/17 08/15/21 Acetaminophen Tab [Tylenol] 1,000 mg PO Q6HR PRN 08/11/21 08/15/21 LORazepam 0.5 mg PO BID PRN 08/11/21 08/15/21 Loratadine [Claritin] 10 mg PO DAILY 08/11/21 08/15/21 Rosuvastatin Calcium 20 mg PO HS 08/11/21 08/15/21 hydrOXYzine HCL 10 mg PO HS 08/11/21 08/15/21 Previous Rx's Medication Instructions Recorded Ascorbic Acid [Vitamin C] 500 mg PO DAILY #30 tab 08/17/21 Cholecalciferol [Vitamin D3 (25 50 mcg PO DAILY #60 tab 08/17/21 Mcg = 1000 Iu)] Zinc Sulfate [Orazinc] 220 mg PO DAILY #30 cap 08/17/21 dexAMETHasone [Decadron] 6 mg PO DAILY 7 Days #7 tablet 08/17/21 Amoxic-Pot Clav 875-125Mg 1 tab PO Q12HR #20 tab 06/27/23 [Augmentin 875-125] Lactulose [Cephulac] 20 gm PO BID PRN #240 ml 07/03/23 Ondansetron Odt [Zofran Odt] 4 mg PO Q8HR PRN #10 tab 07/08/23 Allergies Allergy/AdvReac Type Severity Reaction Status Date / Time morphine Allergy Itching Verified 10/08/24 17:17 Review of Systems ROS Other: All systems not noted in ROS Statement are negative. <Ann Ceja - Last Filed: 10/08/24 17:13> ROS Other: All systems not noted in ROS Statement are negative. <Jesus Lama - Last Filed: 10/16/24 14:21> ROS Statement: Those systems with pertinent positive or pertinent negative responses have been documented in the HPI. Past Medical History Past Medical History: Chest Pain / Angina, GERD/Reflux, Musculoskeletal Disorder Additional Past Medical History / Comment(s): EPILEPSY-LAST SEIZURE APPROX 8 YR S,CHRONIC PAIN TO ABD RADIATING RT HIP AND LEG.-COMES AND G0ES. HAS HAD TROUBLE SWALLOWING SINCE THE LAST 6 MONTHS History of Any Multi-Drug Resistant Organisms: None Reported Past Surgical History: Appendectomy, Cholecystectomy, Heart Catheterization, Hernia Repair, Hysterectomy, Tubal Ligation Additional Past Surgical History / Comment(s): RT INGUINAL HERNIA SURGERY W/ MESH, LT INGUINAL HERNIA REPAIR, BLADDER SLING,LT BREAST BX,APRIL KNEE ARTHROSCOPY,RT ANKLE ARTHROSCOPY, NERVE REMOVED RT FOOT, esophageal strictures Past Anesthesia/Blood Transfusion Reactions: Previous Problems w/ Anesthesia, Motion Sickness Additional Past Anesthesia/Blood Transfusion Reaction / Comment(s): LOW B/P AND PAIN CONTROL AFTER SURGERY Past Psychological History: Anxiety, Depression Smoking Status: Never smoker Past Alcohol Use History: None Reported Past Drug Use History: None Reported - Past Family History Father Family Medical History: Myocardial Infarction ([place]) Additional Family Medical History / Comment(s): AT AGE 75 WITH [place], ABDOMINAL ANEURYSM,EMPHYSEMA, HEART PROBLEMS Mother Family Medical History: Dementia, GI Bleed Additional Family Medical History / Comment(s): WITH GI BLEED AT AGE 73,ALHEIMER'S DISEASE Brother(s) Family Medical History: Renal Disease Additional Family Medical History / Comment(s): MULTIPLE CONGENITAL SPINA BIFIDA <Sasha Cejana - Last Filed: 10/08/24 17:13> General Exam <Sasha Cejana - Last Filed: 10/08/24 17:13> - General Exam Comments Initial Comments: Visual Physical Exam General: Well-appearing, nontoxic, no acute distress. Head: Normocephalic, atraumatic Eyes: PERRLA, EOMI ENT: Airway patent Chest: Nonlabored breathing Skin: No visual rash, normal skin tone Neuro: Alert and oriented 3 Musculoskeletal: No gross abnormalities (Ann Ceja) Course Vital Signs 10/08/24 17:10 Temperature 98.0 F Pulse Rate 73 Respiratory 18 Rate Blood Pressure 129/80 O2 Sat by Pulse 97 Oximetry Medical Decision Making <Ann Ceja - Last Filed: 10/08/24 17:13> - Lab Data Result diagrams: 10/08/24 17:36 10/08/24 17:36 <Jesus Lama - Last Filed: 10/16/24 14:21> - Medical Decision Making I completed the quick note portion of this chart signed Ann Ceja PA-C (Ann Fink) - Lab Data Lab Results 10/08/24 10/08/24 10/08/24 Range/Units 17:36 17:36 17:36 WBC 7.1 (3.8-10.6) k/uL RBC 4.82 (3.80-5.40) m/uL Hgb 15.5 (11.4-16.0) gm/dL Hct 46.4 H (34.0-46.0) % MCV 96.4 (80.0-100.0) fL MCH 32.1 (25.0-35.0) pg MCHC 33.3 (31.0-37.0) g/dL RDW 12.2 (11.5-15.5) % Plt Count 362 (150-450) k/uL MPV 6.7 Neutrophils % 57 % Lymphocytes % 31 % Monocytes % 6 % Eosinophils % 4 % Basophils % 1 % Neutrophils # 4.0 (1.3-7.7) k/uL Lymphocytes # 2.2 (1.0-4.8) k/uL Monocytes # 0.4 (0-1.0) k/uL Eosinophils # 0.3 (0-0.7) k/uL Basophils # 0.0 (0-0.2) k/uL PT 10.2 (10.0-12.5) sec INR 0.9 (<1.2) APTT 24.0 (22.0-30.0) sec Sodium 141 (137-145) mmol/L Potassium 4.0 (3.5-5.1) mmol/L Chloride 104 (98-107) mmol/L Carbon Dioxide 26 (22-30) mmol/L Anion Gap 11 mmol/L BUN 13 (7-17) mg/dL Creatinine 0.65 (0.52-1.04) mg/dL Est GFR (CKD-EPI)AfAm >90 (>60 ml/min/1.73 sqM) Est GFR (CKD-EPI)NonAf >90 (>60 ml/min/1.73 sqM) Glucose 108 H (74-99) mg/dL Calcium 10.1 (8.4-10.2) mg/dL Magnesium 2.2 (1.6-2.3) mg/dL Total Bilirubin 0.4 (0.2-1.3) mg/dL AST 36 (14-36) U/L ALT 45 H (4-34) U/L Alkaline Phosphatase 81 (38-126) U/L Troponin I (0.000-0.034) ng/mL Total Protein 7.5 (6.3-8.2) g/dL Albumin 4.7 (3.5-5.0) g/dL 10/08/24 Range/Units 17:36 WBC (3.8-10.6) k/uL RBC (3.80-5.40) m/uL Hgb (11.4-16.0) gm/dL Hct (34.0-46.0) % MCV (80.0-100.0) fL MCH (25.0-35.0) pg MCHC (31.0-37.0) g/dL RDW (11.5-15.5) % Plt Count (150-450) k/uL MPV Neutrophils % % Lymphocytes % % Monocytes % % Eosinophils % % Basophils % % Neutrophils # (1.3-7.7) k/uL Lymphocytes # (1.0-4.8) k/uL Monocytes # (0-1.0) k/uL Eosinophils # (0-0.7) k/uL Basophils # (0-0.2) k/uL PT (10.0-12.5) sec INR (<1.2) APTT (22.0-30.0) sec Sodium (137-145) mmol/L Potassium (3.5-5.1) mmol/L Chloride (98-107) mmol/L Carbon Dioxide (22-30) mmol/L Anion Gap mmol/L BUN (7-17) mg/dL Creatinine (0.52-1.04) mg/dL Est GFR (CKD-EPI)AfAm (>60 ml/min/1.73 sqM) Est GFR (CKD-EPI)NonAf (>60 ml/min/1.73 sqM) Glucose (74-99) mg/dL Calcium (8.4-10.2) mg/dL Magnesium (1.6-2.3) mg/dL Total Bilirubin (0.2-1.3) mg/dL AST (14-36) U/L ALT (4-34) U/L Alkaline Phosphatase (38-126) U/L Troponin I <0.012 (0.000-0.034) ng/mL Total Protein (6.3-8.2) g/dL Albumin (3.5-5.0) g/dL Disposition <Ann Ceja - Last Filed: 10/08/24 17:13> <Jesus Lama - Last Filed: 10/16/24 14:21> Clinical Impression: Dizziness Disposition: LEFT AGAINST MEDICAL ADVICE Referrals: Yasir Hood MD [Primary Care Provider] - 1-2 days
[2024-10-08 17:17] VITALS: BP 129/80; PULSE 73; RESP 18; TEMP 98
[2024-10-08 17:42] LABS: Basophils % (A) 1 %; Eosinophils # (A) 0.3 k/uL (0-0.7); Eosinophils % (A) 4 %; HCT 46.4 % (34.0-46.0); HGB 15.5 gm/dL (11.4-16.0); Lymphocytes # (A) 2.2 k/uL (1.0-4.8); Lymphocytes % (A) 31 %; MCH 32.1 pg (25.0-35.0); MCHC 33.3 g/dL (31.0-37.0); MCV 96.4 fL (80.0-100.0); Mean Platelet Volume 6.7; Monocytes # (A) 0.4 k/uL (0-1.0); Monocytes % (A) 6 %; Neutrophils % (A) 57 %; Platelet Count 362 k/uL (150-450); RBC 4.82 m/uL (3.80-5.40); RDW 12.2 % (11.5-15.5); WBC 7.1 k/uL (3.8-10.6)
[2024-10-08 17:52] LABS: ALT 45 U/L (4-34); AST 36 U/L (14-36); African American GFR (CKD) >90 (>60 ml/min/1.73 sqM); Albumin 4.7 g/dL (3.5-5.0); Alkaline Phosphatase 81 U/L (38-126); Anion Gap 11 mmol/L; Blood Urea Nitrogen 13 mg/dL (7-17); Calcium 10.1 mg/dL (8.4-10.2); Carbon Dioxide 26 mmol/L (22-30); Chloride 104 mmol/L (98-107); Glucose 108 mg/dL (74-99); INR 0.9 (<1.2); Magnesium 2.2 mg/dL (1.6-2.3); Non-African American GFR(CKD) >90 (>60 ml/min/1.73 sqM); Prothrombin Time 10.2 sec (10.0-12.5); Sodium 141 mmol/L (137-145); Total Bilirubin 0.4 mg/dL (0.2-1.3); Total Protein 7.5 g/dL (6.3-8.2)
== END 2024-10-08 19:00 | disposition left against medical advice (07) ==
LOC: EC 16:57
DX: R42 Dizziness and giddiness (principal); Z88.5 Allergy status to narcotic agent; Z53.29 Procedure and treatment not carried out because of patient's decision for other reasons
CPT/HCPCS: 36415; 80053; 83735; 84484; 85025; 85610; 85730; 93005; 99284

== ENCOUNTER → 2024-12-24 | Outpatient (CLI) | payer MEDICARE ==
--- NOTE | 2024-12-24 10:40 | MM ---
Reason for Exam: Screening (asymptomatic). Last screening mammogram was performed 12 month(s) ago. Patient History: Menarche at age 11. First Full-Term at age 18. Hysterectomy at age 29. Postmenopausal. 1990, Benign Excisional Biopsy on the left side. Risk Values: Ju[place] 5 year model risk: 1.4%. NCI Lifetime model risk: 5.4%. Prior Study Comparison: 07/15/2021 Bilateral Screening Mammogram, [facility]. 10/19/2022 Bilateral MG 3D screening mammo w/cad, [facility]. 12/13/2023 Bilateral MG 3D screening mammo w/cad, [facility]. Tissue Density: The breasts are heterogeneously dense, which may obscure small masses. Findings: Analyzed By CAD. Right breast: There is no suspicious group of microcalcifications or new suspicious mass. Left breast: There is no suspicious group of microcalcifications or new suspicious mass. Overall Assessment: Negative, BI-RAD 1 Management: Screening Mammogram of both breasts in [address] [facility] will attempt to contact patient to return for supplemental views and ultrasound if indicated. Patient should continue monthly self-breast exams. A clinical breast exam by your physician is recommended on an annual basis. This exam should not preclude additional follow-up of suspicious palpable abnormalities. Note on Ju[place] scores and lifetime risk: 1. A [place] score greater than 3% is considered moderate risk. If this is the case, consider specialist referral to assess eligibility for a risk reducing agent. 2. If overall lifetime risk for the development of breast cancer is 20% or higher, the patient may qualify for future screening with alternating mammogram and breast MRI. [facility], , 12/24/2024 10:36 AM. Electronically signed and approved by: Ramiro Atkins DO
== END | disposition home or self-care (01) ==
LOC: RADMAMWWP 09:25
PROVIDERS: ATTEND Family Medicine
DX: Z12.31 Encounter for screening mammogram for malignant neoplasm of breast (principal); R92.333 Mammographic heterogeneous density, bilateral breasts; Z78.0 Asymptomatic menopausal state
CPT/HCPCS: 77063; 77067